=== PATIENT | female | born 1970 | race Caucasian/White ===

== ENCOUNTER 2016-08-29 16:05 | Emergency (ER) | payer BC ==
[2016-08-29 16:40] VITALS: TEMP 98.5
--- NOTE | 2016-08-29 17:15 | ED ---
ENT HPI - General Chief complaint: ENT Stated complaint: Ear Ache Time Seen by Provider: 08/29/16 16:53 Source: patient, RN notes reviewed, old records reviewed Mode of arrival: ambulatory Limitations: no limitations - History of Present Illness Initial comments: This is a 46-year-old female presents emergency department with one week of left ear pain. Patient reports that earlier in the week she's had a lot of sinus congestion and cold-like symptoms. Patient reports it's now manifested into just left ear pain. Denies any difficulty opening closing her jaw. States that she's been not taking any [id number] medications such as decongestants or nasal sprays. Patient reports she's had no fever or chills. No nausea or vomiting or diarrhea. Denies any headache, chest pain, shortness of breath or cough. She reports that she's had no sore throat as well. Patient denies any decreased hearing from the left ear. - Related Data Home Medications Medication Instructions Recorded Confirmed Cyclobenzaprine [Flexeril] 10 mg PO DAILY PRN 08/29/16 08/29/16 Propranolol [Inderal] 20 mg PO BID 08/29/16 08/29/16 tiZANidine [Zanaflex] 4 mg PO BID PRN 08/29/16 08/29/16 Previous Rx's Medication Instructions Recorded Fluticasone Nasal [place] [Flonase 1 spray EA NOSTRIL DAILY #1 bottle 08/29/16 Nasal [place]] Guaifenesin/Pseudoephedrne HCl 1 each PO BID #20 tab.er.12h 08/29/16 [Mucinex D ER 1,200-120 mg Tab] Allergies Allergy/AdvReac Type Severity Reaction Status Date / Time milk Allergy Unknown HEADACHES,EAR Verified 08/29/16 16:39 INFECTIONS amoxicillin [Amoxicillin] AdvReac Severe YEAST Verified 08/29/16 16:39 INFECTIONS adhesive tape AdvReac RED SKIN Verified 08/29/16 16:39 latex AdvReac SKIN RED Verified 08/29/16 16:39 WITH TAPES, BANDAIDS, STATES UNSURE OF LATEX ALLERG BANDAID AdvReac RED SKIN Uncoded 08/29/16 16:39 Review of Systems ROS Statement: Those systems with pertinent positive or pertinent negative responses have been documented in the HPI. ROS Other: All systems not noted in ROS Statement are negative. Past Medical History Past Medical History: CVA/TIA, Memory Impairment, Musculoskeletal Disorder Additional Past Medical History / Comment(s): MIGRAINES. KIDNEY STONES - LAST ONE 06/2014. CHRONIC CONSTIPATION. Diverticulitis, ABD PAIN, OCC DIARRHEA. CERVICAL DDD, HAD FUSION X2. STROKE 09/30/14, AFFECTED MEMORY, SPEECH SOME. History of Any Multi-Drug Resistant Organisms: None Reported Past Surgical History: Ear Surgery, Hysterectomy, Orthopedic Surgery, Tubal Ligation Additional Past Surgical History / Comment(s): BMT. Cervical FUSION X2, LAST . Lithotripsy - last one 06/2014. Pain clinic - Last 08/03/14. Colonoscopy. Past Anesthesia/Blood Transfusion Reactions: Previous Problems w/ Anesthesia, Family History of Problems w/ Anesthesia, Postoperative Nausea & Vomiting (PONV) Additional Past Anesthesia/Blood Transfusion Reaction / Comment(s): SISTER AND FATHER HAVE PONV. PATIENT STATES POSS STROKE AFTER SURG 09/30/14. Past Psychological History: No Psychological Hx Reported Smoking Status: Former smoker Past Alcohol Use History: None Reported Additional Past Alcohol Use History / Comment(s): SMOKED 10 YEARS, LIGHT, QUIT 1994. Past Drug Use History: None Reported - Past Family History Mother Family Medical History: Cancer Additional Family Medical History / Comment(s): low b/p, hx kidney stones, ca cells in colon. Father Family Medical History: CVA/TIA, Hypertension Additional Family Medical History / Comment(s): POSS blood clot in neck, PRIOR TO STROKE, TOLD "IT WAS BLOCKED." General Exam - General Exam Comments Initial Comments: Well-appearing 46-year-old female. No acute distress. Limitations: no limitations General appearance: alert, in no apparent distress Head exam: Present: atraumatic, normocephalic, normal inspection Eye exam: Present: normal appearance, PERRL, EOMI. Absent: scleral icterus, conjunctival injection, periorbital swelling ENT exam: Present: normal exam, normal oropharynx, mucous membranes moist, TM's normal bilaterally (Left TM is normal. No evidence of erythema or exudate. No tenderness to mastoid or preauricular area.) Neck exam: Present: normal inspection. Absent: tenderness, meningismus, lymphadenopathy Respiratory exam: Present: normal lung sounds bilaterally. Absent: respiratory distress, wheezes, rales, rhonchi, stridor Cardiovascular Exam: Present: regular rate, normal rhythm, normal heart sounds. Absent: systolic murmur, diastolic murmur, rubs, gallop, clicks GI/Abdominal exam: Present: soft, normal bowel sounds. Absent: distended, tenderness, guarding, rebound, rigid Extremities exam: Present: normal inspection, full ROM, normal capillary refill. Absent: tenderness, pedal edema, joint swelling, calf tenderness Back exam: Present: normal inspection, full ROM Neurological exam: Present: alert, oriented X3, CN II-XII intact Psychiatric exam: Present: normal affect, normal mood Skin exam: Present: warm, dry, intact, normal color. Absent: rash Course Vital Signs 08/29/16 16:37 Temperature 98.5 F Pulse Rate 97 Respiratory 20 Rate Blood Pressure 140/90 O2 Sat by Pulse 99 Oximetry Medical Decision Making - Medical Decision Making Is a 46-year-old female complaining of upper respiratory congestion leading to left ear pain for the past 2 days. Patient states he has not taken any over-the -counter medications to help. Patient's left TM is normal. No evidence of erythema or effusion. No tenderness to palpation over mastoid or preauricular area. No meningeal signs. Lungs are clear to auscultation. Physical exam is essentially benign. Patient will be discharged with decongestant medication and nasal spray. Patient advised to follow-up with primary care provider if symptoms continue to persist or she does have a fever. Patient agrees treatment plan will comply. Return parameters were discussed. Disposition Clinical Impression: Left ear pain Disposition: HOME SELF-CARE Condition: Good Instructions: Earache (ED) Additional Instructions: Patient advised to use nasal spray and decongestant medication. Also dose Motrin Tylenol for pain. Patient advised to follow-up with her primary care provider within the next 2 or 3 days if symptoms continue to persist. Return the emergency department if any alarming signs or symptoms occur. Prescriptions: Fluticasone Nasal [place] [Flonase Nasal [place]] 1 spray EA NOSTRIL DAILY #1 bottle Guaifenesin/Pseudoephedrne HCl [Mucinex D ER 1,200-120 mg Tab] 1 each PO BID # 20 tab.er.12h Referrals: Hamzah Prince MD [Primary Care Provider] - 1-2 days Time of Disposition: 17:09
[2016-08-29 17:51] VITALS: BP 149/85; PULSE 79; RESP 18
== END 2016-08-29 17:51 | disposition home or self-care (01) ==
LOC: EC 16:05
DX: H92.02 Otalgia, left ear (principal); R09.89 Other specified symptoms and signs involving the circulatory and respiratory systems; Z87.891 Personal history of nicotine dependence; Z79.899 Other long term (current) drug therapy; Z91.011 Allergy to milk products; Z88.0 Allergy status to penicillin; Z91.040 Latex allergy status; Z91.048 Other nonmedicinal substance allergy status
CPT/HCPCS: 99283

== ENCOUNTER → 2016-12-12 | Outpatient (CLI) | payer MEDICARE, BC ==
[2016-12-12 11:03] LABS: Basophils # (A) 0.1 k/uL (0-0.2); Basophils % (A) 1 %; CH 34.2; CHCM 35.2; Eosinophils # (A) 0.1 k/uL (0-0.7); Eosinophils % (A) 1 %; HCT 44.4 % (34.0-46.0); Luc # (Auto) 0.21; Luc % (Auto) 3; Lymphocytes # (A) 2.3 k/uL (1.0-4.8); Lymphocytes % (A) 28 %; MCH 33.1 pg (25.0-35.0); MCHC 33.9 g/dL (31.0-37.0); MCV 97.6 fL (80.0-100.0); Mean Platelet Volume 7.2; Monocytes # (A) 0.4 k/uL (0-1.0); Monocytes % (A) 5 %; Neutrophils # (A) 5.2 k/uL (1.3-7.7); Neutrophils % (A) 62 %; RBC 4.55 m/uL (3.80-5.40); RDW 13.6 % (11.5-15.5); WBC 8.3 k/uL (3.8-10.6); WBC (Perox) 8.03
[2016-12-12 11:34] LABS: ALT 72 U/L (9-52); AST 37 U/L (14-36); Alkaline Phosphatase 93 U/L (38-126); Anion Gap 8 mmol/L; Blood Urea Nitrogen 16 mg/dL (7-17); Calcium 9.3 mg/dL (8.4-10.2); Carbon Dioxide 24 mmol/L (22-30); Chloride 109 mmol/L (98-107); Cholesterol 158 mg/dL (<200); Glucose 95 mg/dL (74-99); HDL Cholesterol 36 mg/dL (40-60); Non-African American GFR(MDRD) >60 (>60 ml/min/1.73 sqM); Potassium 5.1 mmol/L (3.5-5.1); Sodium 141 mmol/L (137-145); Total Bilirubin 0.8 mg/dL (0.2-1.3); Total Protein 7.4 g/dL (6.3-8.2)
[2016-12-12 14:29] LABS: Erythrocyte Sedimentation Rate 18 mm/hr (0-20)
== END | disposition home or self-care (01) ==
LOC: LABWHC1 10:06
PROVIDERS: ATTEND Internal Medicine
DX: I10 Essential (primary) hypertension (principal); R00.2 Palpitations; H57.12 Ocular pain, left eye; E55.9 Vitamin D deficiency, unspecified
CPT/HCPCS: 36415; 80053; 80061; 82306; 84443; 85025; 85652

== ENCOUNTER → 2018-09-08 | Outpatient (CLI) | payer BC, MEDICARE ==
--- NOTE | 2018-09-09 15:23 | MR ---
EXAMINATION TYPE: MR cervical spine wo/w con DATE OF EXAM: 09/08/2018 COMPARISON: Prior cervical MRI 01/03/2016 HISTORY: DDD, headaches, neck pain, hx surgery TECHNIQUE: Multiplanar, multisequence images of the cervical spine were acquired utilizing 7.5 mL intravenous Ga davist gadolinium contrast. Diffusion weighted imaging was performed. C2-C3: There is some uncovertebral joint hypertrophy causing minimal left-sided foraminal encroachmen t, no disc herniation or significant spinal stenosis C3-C4: Uncovertebral joint hypertrophy and facet arthropathy results in minimal foraminal encroachmen t. Posterior disc bulge causes only slight anterior mass effect on the thecal sac. C4-C5: There is some mild right-sided foraminal encroachment, facet arthropathy with uncovertebral samanta int hypertrophy noted. Minimal posterior disc bulge causes only slight anterior mass effect on the th ecal sac. C5-C6: No evidence for degenerative disc disease. No disc bulge/herniation or protrusion. No Canal stenosis. Foramina are patent bilaterally. C6-C7: Posterior extension of hard disc causes only slight anterior mass effect on the thecal sac, st able finding. Neural foramina show a stable appearance, no significant spinal stenosis. C7-T1: No evidence for degenerative disc disease. No disc bulge/herniation or protrusion. No Canal stenosis. Foramina are patent bilaterally. Postop changes are again noted status post anterior cervical fusion and discectomy at C6-7, there may been prior fusion at C5-C6, disc space is not as well-defined as on prior exam.. There is normal al ignment. Cervical spinal cord is of normal signal. Craniovertebral junction relationships are withi n normal limits. No abnormal enhancement following contrast administration. IMPRESSION: Essentially stable postoperative findings, degenerative disc disease. Mild multilevel foraminal encro achment.
== END | disposition home or self-care (01) ==
LOC: RADMRIMAIN 18:58
PROVIDERS: ATTEND Internal Medicine
DX: M48.02 Spinal stenosis, cervical region (principal); M50.30 Other cervical disc degeneration, unspecified cervical region
CPT/HCPCS: 72156; A9585

== ENCOUNTER → 2019-05-07 | Outpatient (CLI) | payer BC, MEDICARE ==
--- NOTE | 2019-05-08 11:21 | MM ---
Reason for exam: screening (asymptomatic). Last mammogram was performed 4 years ago. Physical Findings: A clinical breast exam by your physician is recommended on an annual basis and results should be correlated with mammographic findings. MG 3D Screening Mammo W/Cad Bilateral CC and MLO view(s) were taken. Prior study comparison: May 12, 2015, bilateral MG 3d diag mammo w/cad STEPHANIE. April 16, 2014, bilateral MG diagnostic mammo w CAD STEPHANIE. The breast tissue is heterogeneously dense. This may lower the sensitivity of mammography. Left superior asymmetry. Right upper outer quadrant architectural distortion 5-6cm from nipple on CC 3D and MLO . ASSESSMENT: Incomplete: need additional imaging evaluation, BI-RAD 0 RECOMMENDATION: Special view mammogram of both breasts. If lesion persists on supplemental views, image directed ultrasound is recommended. [facility] will attempt to contact patient to return for supplemental views and ultrasound if indicated.
== END | disposition home or self-care (01) ==
LOC: RADMAMWWP 09:35
PROVIDERS: ATTEND Internal Medicine
DX: Z12.31 Encounter for screening mammogram for malignant neoplasm of breast (principal)
CPT/HCPCS: 77063; 77067

== ENCOUNTER → 2019-05-18 | Outpatient (CLI) | payer BC, MEDICARE ==
--- NOTE | 2019-05-19 09:02 | MM ---
Reason for exam: additional evaluation requested from abnormal screening. Last mammogram was performed less than 1 month ago. History: Benign excisional biopsy of the right breast, 2018. Physical Findings: Nurse Summary: 0.5cm nodule in the right breast at 3 o'clock and 10 o'clock and a 0.5-1cm nodule in the left breast upper outer quadran (nurse ts). MG 3D Work Up W/Cad STEPHANIE Bilateral spot compression CC, spot compression MLO, and ML view(s) were taken. Prior study comparison: May 07, 2019, bilateral MG 3d screening mammo w/cad. May 12, 2015, bilateral MG 3d diag mammo w/cad STEPHANIE. The breast tissue is heterogeneously dense. This may lower the sensitivity of mammography. Left upper asymmetries improve however palpable noted in the left upper outer quadrant by nursing. Right distortion corresponds to the prior excisional site, scar on overlying skin. These results were verbally communicated with the patient and result sheet given to the patient on 05/18/19. ASSESSMENT: Incomplete: need additional imaging evaluation, BI-RAD 0 RECOMMENDATION: Ultrasound of the left breast. (upper outer quadant palpable)
--- NOTE | 2019-05-19 09:03 | USB ---
Reason for exam: additional evaluation requested from abnormal screening. History: Benign excisional biopsy of the right breast, 2018. US Breast Workup Limited LT Technologist: Elvia Marx Left limited breast ultrasound including focal area of concern, retroareolar and axilla demonstrates a 4.1 x 2.5 x 1.3cm area of dense tissue at 1-2 o'clock, corresponds to mammographic dense tissue. These results were verbally communicated with the patient and result sheet given to the patient on 05/18/19. ASSESSMENT: Benign, BI-RAD 2 RECOMMENDATION: Return to routine screening mammogram schedule for both breasts.
== END | disposition home or self-care (01) ==
LOC: RADMAMWWP 13:30
PROVIDERS: ATTEND Internal Medicine
DX: R92.8 Other abnormal and inconclusive findings on diagnostic imaging of breast (principal)
CPT/HCPCS: 77062; 77066

== ENCOUNTER → 2020-05-16 | Outpatient (CLI) | payer BC, MEDICARE ==
--- NOTE | 2020-05-16 07:34 | US ---
EXAMINATION TYPE: US liver DATE OF EXAM: 05/16/2020 COMPARISON: NONE CLINICAL HISTORY: 49-year-old female R74.8 Elevated liver enzymes. Abdominal pain on and off, elevate d labs TECHNIQUE: Multiple sonographic images of the right upper quadrant are obtained. FINDINGS: EXAM MEASUREMENTS: Liver Length: 12.8 cm Gallbladder Wall: 0.2 cm CBD: 0.4 cm Right Kidney: 11.7 x 4.0 x 4.9 cm Pancreas: wnl Liver: Limited intercostal imaging due to bowel gas. Echogenic parenchyma noted. No focal lesion s een. Gallbladder: Comet tail artifact on anterior wall, probable adenomyomatosis. Borderline distended at 3.8 cm wide but without any wall thickening or shadowing calculi. Evidence for sonographic Marte's sign: no CBD: wnl Right Kidney: 0.8cm upper pole stone . No hydronephrosis. IMPRESSION: 1. Limited intercostal imaging of the liver. Echogenic appearance suggests at least moderate hepatic steatosis. Correlate with LFTs, lipid profile, and patient risk factors. 2. Borderline hydropic gallbladder likely due to fasting state. No ancillary findings of acute cholec ystitis. Some comet tail artifact suggests underlying adenomyomatosis. 3. No biliary ductal dilatation. 4. 8 mm nonobstructive right renal calculus. 2.
[2020-05-16 08:01] LABS: Basophils # (A) 0.1 k/uL (0-0.2); Basophils % (A) 1 %; Eosinophils # (A) 0.1 k/uL (0-0.7); Eosinophils % (A) 1 %; HCT 44.6 % (34.0-46.0); HGB 14.7 gm/dL (11.4-16.0); Lymphocytes # (A) 2.5 k/uL (1.0-4.8); Lymphocytes % (A) 28 %; MCH 32.1 pg (25.0-35.0); MCHC 32.9 g/dL (31.0-37.0); MCV 97.4 fL (80.0-100.0); Mean Platelet Volume 6.8; Monocytes # (A) 0.6 k/uL (0-1.0); Monocytes % (A) 6 %; Neutrophils # (A) 5.3 k/uL (1.3-7.7); Neutrophils % (A) 61 %; Platelet Count 286 k/uL (150-450); RBC 4.58 m/uL (3.80-5.40); RDW 13.2 % (11.5-15.5); Reticulocyte % 2.7 % (0.5-2.0); WBC 8.7 k/uL (3.8-10.6)
[2020-05-16 14:52] LABS: Hepatitis A Antibody IgM Non-Reactive (Non-Reactive); Hepatitis B Core IgM Non-Reactive (Non-Reactive); Hepatitis B Surface Antigen Non-Reactive (Non-Reactive); Hepatitis C IgG Antibody Non-Reactive (Non-Reactive)
== END | disposition home or self-care (01) ==
LOC: RADUSWWP 06:57
PROVIDERS: ATTEND Internal Medicine
DX: R74.8 Abnormal levels of other serum enzymes (principal)
CPT/HCPCS: 76705; 80074; 82977; 83516; 85025; 85045

== ENCOUNTER → 2020-06-21 | Outpatient (CLI) | payer BC, MEDICARE ==
--- NOTE | 2020-06-23 08:38 | MM ---
Reason for exam: screening (asymptomatic). Last mammogram was performed 1 year and 1 month ago. History: Benign excisional biopsy of the right breast, 2018. Physical Findings: A clinical breast exam by your physician is recommended on an annual basis and results should be correlated with mammographic findings. MG 3D Screening Mammo W/Cad Bilateral CC and MLO view(s) were taken. Prior study comparison: May 07, 2019, bilateral MG 3d screening mammo w/cad. May 12, 2015, bilateral MG 3d diag mammo w/cad STEPHANIE. The breast tissue is extremely dense which could obscure a lesion on mammography. No significant changes when compared with prior studies. ASSESSMENT: Benign, BI-RAD 2 RECOMMENDATION: Routine screening mammogram of both breasts in 1 year.
== END ==
LOC: RADMAMWWP 07:26
PROVIDERS: ATTEND Internal Medicine
DX: Z12.31 Encounter for screening mammogram for malignant neoplasm of breast (principal)
CPT/HCPCS: 77063; 77067

== ENCOUNTER → 2020-09-15 | Outpatient (CLI) | payer BC, MEDICARE ==
[2020-09-16 00:22] LABS: African American GFR (CKD) 98.9 (60.0-200.0); Anion Gap 8.9 mmol/L (4.00-12.00); BUN/Creat Ratio 18.75 Ratio (12.00-20.00); Calcium 9.1 mg/dL (8.7-10.3); Carbon Dioxide 23.1 mmol/L (21.6-31.8); Chol/HDL Ratio 4.57; LDL Cholesterol,Calculated 139.2 mg/dL (0.0-131.0); Non-African American GFR(CKD) 85.4 (60.0-200.0); Potassium 4.3 mmol/L (3.5-5.5); VLDL Calculation 17.8 mg/dL (5.00-40.00)
== END | disposition home or self-care (01) ==
LOC: LABWHC1 12:45
PROVIDERS: ATTEND Internal Medicine Clinical Cardiac Electrophysiology
DX: I11.0 Hypertensive heart disease with heart failure (principal); I49.3 Ventricular premature depolarization; I50.9 Heart failure, unspecified
CPT/HCPCS: 36415; 80048; 80061; 84443

== ENCOUNTER → 2020-11-12 | Outpatient (CLI) | payer BC, MEDICARE ==
--- NOTE | 2020-11-13 21:13 | MR ---
EXAMINATION TYPE: MR cervical spine wo con DATE OF EXAM: 11/12/2020 COMPARISON: 09/08/2018 HISTORY: Cervical DDD CONTRAST: Performed utilizing 7.5 mL intravenous Gadavist gadolinium contrast. TECHNIQUE: Multiplanar multiecho imaging on a 3.0 Traci magnet is performed through the cervical spin e. FINDINGS: The craniovertebral junction is normal. Vertebral body alignment is normal. Appears obes e fusion of C5-C7. Metallic anterior cervical fusion is present C6-C7. C7-T1: Paracentral bulge or protrusion is present with mild anterior thecal sac compression. No cord contact is evident. No spinal canal stenosis or neural foraminal stenosis is present.. C6-7: Left paracentral thecal sac compression is present without cord contact. No AP spinal canal page nosis is present. Neural foramen are patent.. C5-6: No focal disc herniation or significant disc bulge is evident. No spinal canal stenosis or ismael ral foraminal stenosis is present. C4-5: Broad-based central protrusion is present with moderate anterior thecal sac compression. This c omes in close approximation of the spinal cord. No AP spinal canal stenosis present. Neural foramen a re patent.. C3-4: No focal disc herniation or significant disc bulge is evident. No spinal canal stenosis or ismael ral foraminal stenosis is present. C2-3: No focal disc herniation or significant disc bulge is evident. No spinal canal stenosis or ismael ral foraminal stenosis is present. IMPRESSIONS: 1. 1. Broad-based central protrusion C4-5 with moderate anterior thecal sac compression comes in close a pproximation with the spinal cord without stenosis. 2. Left paracentral endplate changes versus disc bulging with mild anterior thecal sac compression at C6-7 and to a lesser degree C7-T1.
== END | disposition home or self-care (01) ==
LOC: RADMRIMAIN 09:11
PROVIDERS: ATTEND Family Medicine
DX: M50.221 Other cervical disc displacement at C4-C5 level (principal)
CPT/HCPCS: 72141

== ENCOUNTER 2021-01-25 18:27 | Emergency (ER) | payer BC, MEDICARE ==
[2021-01-25 19:17] VITALS: BP 172/96; TEMP 99.3
[2021-01-25] MEDS ORDERED: KETOROLAC 15 MG/ML 1 ML VIAL IVP STA (20:24)
[2021-01-25] MEDS ORDERED: SODIUM CHLORIDE 0.9% 1,000 ML IV STA (20:24)
[2021-01-25 20:42] LABS: Basophils # (A) 0.1 k/uL (0-0.2); Basophils % (A) 1 %; Eosinophils # (A) 0.2 k/uL (0-0.7); Eosinophils % (A) 2 %; HCT 44.2 % (34.0-46.0); HGB 14.6 gm/dL (11.4-16.0); Lymphocytes # (A) 3.6 k/uL (1.0-4.8); Lymphocytes % (A) 33 %; MCH 32.8 pg (25.0-35.0); MCHC 33.1 g/dL (31.0-37.0); Mean Platelet Volume 7.4; Monocytes # (A) 0.6 k/uL (0-1.0); Monocytes % (A) 5 %; Neutrophils # (A) 6.3 k/uL (1.3-7.7); Neutrophils % (A) 57 %; Platelet Count 292 k/uL (150-450); RBC 4.47 m/uL (3.80-5.40); RDW 12.2 % (11.5-15.5)
[2021-01-25 20:52] LABS: ALT 52 U/L (4-34); AST 46 U/L (14-36); African American GFR (CKD) >90 (>60 ml/min/1.73 sqM); Albumin 4.5 g/dL (3.5-5.0); Alkaline Phosphatase 114 U/L (38-126); Anion Gap 10 mmol/L; Blood Urea Nitrogen 19 mg/dL (7-17); Calcium 9.6 mg/dL (8.4-10.2); Carbon Dioxide 26 mmol/L (22-30); Chloride 105 mmol/L (98-107); Glucose 90 mg/dL (74-99); Lipase 71 U/L (23-300); Non-African American GFR(CKD) 88 (>60 ml/min/1.73 sqM); Potassium 3.8 mmol/L (3.5-5.1); Sodium 141 mmol/L (137-145); Total Bilirubin 0.5 mg/dL (0.2-1.3); Total Protein 7.8 g/dL (6.3-8.2)
[2021-01-25 20:56] LABS: Appearance,Urine Clear (Clear); Bilirubin,Urine Negative (Negative); Blood,Urine Negative (Negative); Color,Urine Yellow; Glucose,Urine (UA) Negative (Negative); Ketones,Urine Negative (Negative); Leukocyte Esterase,Urine Negative (Negative); Nitrite,Urine Negative (Negative); Protein,Urine Negative (Negative); Specific Gravity,Urine 1.015 (1.001-1.035); Urobilinogen,Urine <2.0 mg/dL (<2.0)
[2021-01-25] MEDS ORDERED: ACET/COD 300 MG/30 MG STARTER PACK 6 TAB BTL PO STA (21:50)
[2021-01-25] MEDS ORDERED: TAMSULOSIN 0.4 MG CAP.ER.24H PO STA (21:50)
--- NOTE | 2021-01-25 21:54 | ED ---
General Adult HPI - General Chief complaint: Urogenital Stated complaint: Kidney stones, swollen kidney Time Seen by Provider: 01/25/21 20:13 Source: patient Mode of arrival: ambulatory Limitations: no limitations - History of Present Illness Initial comments: 50-year-old female patient presents to the emergency department today sent by her primary care physician after having outpatient computed tomography scan positive for kidney stones with left hydronephrosis. Patient states she has been having pain to the left side for the last 2 weeks. States she does have history of kidney stones and has had surgery in the past for them. States that she has been having pain to the left side constant every day for the last 2 weeks. Denies any hematuria, dysuria, urinary frequency, urinary urgency. Denies any nausea or vomiting. Denies fever or chills. Patient denies any recent rash, cough, shortness of breath, chest pain, diarrhea, constipation, ba ck pain, numbness, tingling, dizziness, weakness, headache, visual changes, or any other complaints. - Related Data Home Medications Medication Instructions Recorded Confirmed Cyclobenzaprine [Flexeril] 10 mg PO DAILY PRN 08/29/16 08/29/16 Propranolol [Inderal] 20 mg PO BID 08/29/16 08/29/16 tiZANidine [Zanaflex] 4 mg PO BID PRN 08/29/16 08/29/16 Previous Rx's Medication Instructions Recorded Fluticasone Nasal [place] [Flonase 1 spray EA NOSTRIL DAILY #1 bottle 08/29/16 Nasal [place]] Guaifenesin/Pseudoephedrne HCl 1 each PO BID #20 tab.er.12h 08/29/16 [Mucinex D ER 1,200-120 mg Tab] Acetaminophen-Codeine 300-30mg 1 tab PO Q6H PRN #12 tablet 01/25/21 [Tylenol #3] Tamsulosin HCl [Flomax] 0.4 mg PO DAILY #7 cap 01/25/21 Allergies Allergy/AdvReac Type Severity Reaction Status Date / Time milk Allergy Unknown HEADACHES,EAR Verified 08/29/16 16:39 INFECTIONS amoxicillin [Amoxicillin] AdvReac Severe YEAST Verified 08/29/16 16:39 INFECTIONS adhesive tape AdvReac RED SKIN Verified 08/29/16 16:39 latex AdvReac SKIN RED Verified 08/29/16 16:39 WITH TAPES, BANDAIDS, STATES UNSURE OF LATEX ALLERG BANDAID AdvReac RED SKIN Uncoded 08/29/16 16:39 Review of Systems ROS Statement: Those systems with pertinent positive or pertinent negative responses have been documented in the HPI. ROS Other: All systems not noted in ROS Statement are negative. Past Medical History Past Medical History: CVA/TIA, Memory Impairment, Musculoskeletal Disorder Additional Past Medical History / Comment(s): MIGRAINES. KIDNEY STONES - LAST ONE 06/2014. CHRONIC CONSTIPATION. Diverticulitis, ABD PAIN, OCC DIARRHEA. CERVICAL DDD, HAD FUSION X2. STROKE 09/30/14, AFFECTED MEMORY, SPEECH SOME. History of Any Multi-Drug Resistant Organisms: None Reported Past Surgical History: Ear Surgery, Hysterectomy, Orthopedic Surgery, Tubal Ligation Additional Past Surgical History / Comment(s): BMT. Cervical FUSION X2, LAST . Lithotripsy - last one 06/2014. Pain clinic - Last 08/03/14. Colonoscopy. Past Anesthesia/Blood Transfusion Reactions: Previous Problems w/ Anesthesia, Family History of Problems w/ Anesthesia, Postoperative Nausea & Vomiting (PONV) Additional Past Anesthesia/Blood Transfusion Reaction / Comment(s): SISTER AND FATHER HAVE PONV. PATIENT STATES POSS STROKE AFTER SURG 09/30/14. Past Psychological History: No Psychological Hx Reported Past Alcohol Use History: None Reported Past Drug Use History: None Reported - Past Family History Mother Family Medical History: Cancer Additional Family Medical History / Comment(s): low b/p, hx kidney stones, ca cells in colon. Father Family Medical History: CVA/TIA, Hypertension Additional Family Medical History / Comment(s): POSS blood clot in neck, PRIOR TO STROKE, TOLD "IT WAS BLOCKED." General Exam Limitations: no limitations General appearance: alert, in no apparent distress, other (This is a well- developed, well-nourished adult female patient in no acute distress. ) ENT exam: Present: normal exam, normal oropharynx, mucous membranes moist Respiratory exam: Present: normal lung sounds bilaterally. Absent: respiratory distress, wheezes, rales, rhonchi, stridor Cardiovascular Exam: Present: regular rate, normal rhythm, normal heart sounds. Absent: systolic murmur, diastolic murmur, rubs, gallop, clicks GI/Abdominal exam: Present: soft, tenderness (Upper abdominal tenderness), normal bowel sounds. Absent: distended, guarding, rebound, rigid Back exam: Present: normal inspection, CVA tenderness (L). Absent: CVA tenderness (R) Neurological exam: Present: alert, oriented X3, CN II-XII intact Psychiatric exam: Present: normal affect, normal mood Skin exam: Present: warm, dry, intact, normal color. Absent: rash Course Vital Signs 01/25/21 01/25/21 19:15 22:04 Temperature 99.3 F Pulse Rate 73 63 Respiratory 19 16 Rate Blood Pressure 172/96 O2 Sat by Pulse 99 98 Oximetry Medical Decision Making - Medical Decision Making 50-year-old female patient presents to the emergency department today for evaluation of left side pain. Had outpatient computed tomography scan today which did show evidence for obstructing renal calculus is to the left ureter with left hydronephrosis. Labs reviewed and did reveal white blood cell count 11.0. BUN is 19. She has mild elevated liver function tests. Urinalysis is negative for signs of infection. Patient will be started on Flomax. She'll be given medication for pain. She'll be discharged to follow-up with urologist for further evaluation. She has seen Dr. Finley in the past. Return parameters discussed in detail. She verbalizes understanding and agrees with this plan. Case is discussed with my attending Dr. Cespedes. - Lab Data Result diagrams: 01/25/21 20:38 01/25/21 20:38 Lab Results 01/25/21 01/25/21 01/25/21 Range/Units 20:38 20:38 20:38 WBC 11.0 H (3.8-10.6) k/uL RBC 4.47 (3.80-5.40) m/uL Hgb 14.6 (11.4-16.0) gm/dL Hct 44.2 (34.0-46.0) % MCV 99.0 (80.0-100.0) fL MCH 32.8 (25.0-35.0) pg MCHC 33.1 (31.0-37.0) g/dL RDW 12.2 (11.5-15.5) % Plt Count 292 (150-450) k/uL MPV 7.4 Neutrophils % 57 % Lymphocytes % 33 % Monocytes % 5 % Eosinophils % 2 % Basophils % 1 % Neutrophils # 6.3 (1.3-7.7) k/uL Lymphocytes # 3.6 (1.0-4.8) k/uL Monocytes # 0.6 (0-1.0) k/uL Eosinophils # 0.2 (0-0.7) k/uL Basophils # 0.1 (0-0.2) k/uL Sodium 141 (137-145) mmol/L Potassium 3.8 (3.5-5.1) mmol/L Chloride 105 (98-107) mmol/L Carbon Dioxide 26 (22-30) mmol/L Anion Gap 10 mmol/L BUN 19 H (7-17) mg/dL Creatinine 0.79 (0.52-1.04) mg/dL Est GFR (CKD-EPI)AfAm >90 (>60 ml/min/1.73 sqM) Est GFR (CKD-EPI)NonAf 88 (>60 ml/min/1.73 sqM) Glucose 90 (74-99) mg/dL Plasma Lactic Acid Ozzie 0.8 (0.7-2.0) mmol/L Calcium 9.6 (8.4-10.2) mg/dL Total Bilirubin 0.5 (0.2-1.3) mg/dL AST 46 H (14-36) U/L ALT 52 H (4-34) U/L Alkaline Phosphatase 114 (38-126) U/L Total Protein 7.8 (6.3-8.2) g/dL Albumin 4.5 (3.5-5.0) g/dL Lipase 71 (23-300) U/L Urine Color Urine Appearance (Clear) Urine pH (5.0-8.0) Ur Specific [place] (1.001-1.035) Urine Protein (Negative) Urine Glucose (UA) (Negative) Urine Ketones (Negative) Urine Blood (Negative) Urine Nitrite (Negative) Urine Bilirubin (Negative) Urine Urobilinogen (<2.0) mg/dL Ur Leukocyte Esterase (Negative) 01/25/21 Range/Units 20:47 WBC (3.8-10.6) k/uL RBC (3.80-5.40) m/uL Hgb (11.4-16.0) gm/dL Hct (34.0-46.0) % MCV (80.0-100.0) fL MCH (25.0-35.0) pg MCHC (31.0-37.0) g/dL RDW (11.5-15.5) % Plt Count (150-450) k/uL MPV Neutrophils % % Lymphocytes % % Monocytes % % Eosinophils % % Basophils % % Neutrophils # (1.3-7.7) k/uL Lymphocytes # (1.0-4.8) k/uL Monocytes # (0-1.0) k/uL Eosinophils # (0-0.7) k/uL Basophils # (0-0.2) k/uL Sodium (137-145) mmol/L Potassium (3.5-5.1) mmol/L Chloride (98-107) mmol/L Carbon Dioxide (22-30) mmol/L Anion Gap mmol/L BUN (7-17) mg/dL Creatinine (0.52-1.04) mg/dL Est GFR (CKD-EPI)AfAm (>60 ml/min/1.73 sqM) Est GFR (CKD-EPI)NonAf (>60 ml/min/1.73 sqM) Glucose (74-99) mg/dL Plasma Lactic Acid Ozzie (0.7-2.0) mmol/L Calcium (8.4-10.2) mg/dL Total Bilirubin (0.2-1.3) mg/dL AST (14-36) U/L ALT (4-34) U/L Alkaline Phosphatase (38-126) U/L Total Protein (6.3-8.2) g/dL Albumin (3.5-5.0) g/dL Lipase (23-300) U/L Urine Color Yellow Urine Appearance Clear (Clear) Urine pH 6.0 (5.0-8.0) Ur Specific [place] 1.015 (1.001-1.035) Urine Protein Negative (Negative) Urine Glucose (UA) Negative (Negative) Urine Ketones Negative (Negative) Urine Blood Negative (Negative) Urine Nitrite Negative (Negative) Urine Bilirubin Negative (Negative) Urine Urobilinogen <2.0 (<2.0) mg/dL Ur Leukocyte Esterase Negative (Negative) - Radiology Data Radiology results: report reviewed CT abdomen and pelvis without contrast was obtained. Report was reviewed in its entirety. Impression by Dr. delvalle shows moderate to severe left h ydronephrosis secondary to 2 distal 4 mm ureteral calculus. Chronic medical renal disease involving the right kidney with nonobstructing calculi. Nonvisualization of the appendix. Bibasilar consolidation atelectasis versus early infiltrate. Disposition Clinical Impression: Kidney stone on left side Disposition: HOME SELF-CARE Condition: Good Instructions (If sedation given, give patient instructions): Kidney Stones (ED) Additional Instructions: Take medications as directed. Follow-up with the urologist for further evaluation as soon as possible. Return for any new, worsening, or concerning symptoms. Prescriptions: Tamsulosin HCl [Flomax] 0.4 mg PO DAILY #7 cap Acetaminophen-Codeine 300-30mg [Tylenol #3] 1 tab PO Q6H PRN #12 tablet PRN Reason: Pain Is patient prescribed a controlled substance at d/c from ED?: No Referrals: Peggy Sandra MD [Primary Care Provider] - 1-2 days Dale Mason MD [STAFF PHYSICIAN] - 1-2 days Time of Disposition: 21:54
[2021-01-25 22:05] VITALS: PULSE 63; RESP 16
== END 2021-01-25 22:05 | disposition home or self-care (01) ==
LOC: EC 18:27
DX: N20.0 Calculus of kidney (principal); Z88.0 Allergy status to penicillin; Z91.040 Latex allergy status; Z86.73 Personal history of transient ischemic attack (TIA), and cerebral infarction without residual deficits; Z90.710 Acquired absence of both cervix and uterus; Z98.51 Tubal ligation status
CPT/HCPCS: 99284; 96374; 96361; 36415; 80053; 83605; 83690; 85025; 81003; J1885

== ENCOUNTER → 2021-01-25 | Outpatient (CLI) | payer BC, MEDICARE ==
--- NOTE | 2021-01-25 15:57 | CT ---
EXAMINATION TYPE: CT abdomen pelvis wo con DATE OF EXAM: 01/25/2021 COMPARISON: 07/03/2014 HISTORY: Acute LT side abdominal pain under ribs, pain upon palpation. Hx renal stones. CT DLP: 950 mGycm Automated exposure control for dose reduction was used. TECHNIQUE: Helical acquisition of images was performed from the lung bases through the pelvis. FINDINGS: LUNG BASES: Linear changes at the left lung base suggestive of atelectasis or scar. LIVER/GB: Low-attenuation the liver can be associated with atelectatic steatosis. PANCREAS: Limited by noncontrast technique with no definite abnormality.. SPLEEN: No significant abnormality is seen. ADRENALS: No significant abnormality is seen. KIDNEYS: Lobulation of the right kidney with loss of cortex. There are four punctate calcifications with minimal pelvocaliectasis. 2 of the calcifications appear to be cortical. The left kidney demonstrates moderate to severe hydronephrosis. Hydroureter is seen to the level of t he distal left ureter with 2 punctate calcifications measuring 4 mm. This is several centimeters abov e the UVJ. Additional calcifications in the pelvis appear to be vascular ADENOPATHY: None visualized. OSSEOUS STRUCTURES: Hypertrophic and degenerative changes of the spine. BOWEL: Bowel gas pattern nonspecific. Appendix not seen with certainty. OTHER: No free fluid. Bladder decompressed. Aorta of normal caliber with atherosclerotic changes. IMPRESSION: 1. Moderate to severe left hydronephrosis secondary to two distal 4 mm ureteral calculus. 2. Chronic medical renal disease involving the right kidney with nonobstructing calculi. 3. Nonvisualization appendix. 4. Bibasilar consolidation atelectasis versus early infiltrate.
== END | disposition home or self-care (01) ==
LOC: RADCTMAIN 15:20
PROVIDERS: ATTEND Family Medicine
DX: N13.2 Hydronephrosis with renal and ureteral calculous obstruction (principal)
CPT/HCPCS: 74176

== ENCOUNTER 2021-02-10 13:46 | Day surgery (SDC) | payer BC, MEDICARE ==
[2021-02-08 11:41] VITALS: BMI 28.1
[~2021-02-10 13:46] MED LIST: CIPROFLOXACIN/DEXTROSE PMX 400 MG in DEXTROSE/WATER 1 200ML.BAG IVPB PRN; DEXAMETHASONE SOD PHOSPHATE 4 MG/ML 1 ML VIAL IV ONE; HYDROmorphone 0.5 MG/0.5 ML SYRINGE IVP PRN; LACTATED RINGERS 1,000 ML IV SCH; LIDOCAINE 1% (10MG/ML) FOR IV START INTRADERMA PRN; ONDANSETRON 4 MG/2 ML VIAL IVP ONE; SCOPOLAMINE 1.5MG/72HR PATCH TRANSDERM ONE
--- NOTE | 2021-02-10 14:20 | XR ---
EXAMINATION TYPE: XR KUB DATE OF EXAM: 02/10/2021 COMPARISON: NONE HISTORY: Preop TECHNIQUE: One view abdominal series FINDINGS: The osseous structures are intact. The bowel gas pattern is nonspecific. Lung bases are clear. The multiple calcifications are seen within the bladder. No suspicious calcifications overlying the renal outlines. Curvature of the spine. Arthropathy of the hips. IMPRESSION: 1. Nonspecific abdomen. Multiple calculi within the pelvis likely are vascular and appear to lie out side of the bladder on previous CT scan.
--- NOTE | 2021-02-10 14:58 | P.HPIHPCON ---
History of Present Illness H&P Date: 02/10/21 Chief Complaint: Left-sided ureteral stone This is a 50-year-old female with history of two 4 mm distal ureteral stones. She is symptomatic from her stone. Discussed with her the option of left-sided ureteroscopy. Discussed with her the risk of procedure which includes but not limited bleeding, infection, injury to the ureter. Discussed also risk of anesthesia. She understood all the risk and agreed to proceed Consent for Procedure: I have explained the operation/procedure to the patient, including the risks, benefits, side effects, alternative therapies (including not receiving the proposed treatment or service), the likelihood of the patient achieving his/her goals, and potential recuperation problems for the procedure/sedation/analgesia, as well as any blood products, if indicated. I also explained to the patient the risks, benefits and side effects of the alternatives, as well as the risks related to not receiving the proposed procedure, care, treatment, or services. Past Medical History Past Medical History: CVA/TIA, GERD/Reflux, Hypertension, Memory Impairment, Musculoskeletal Disorder, Osteoarthritis (OA) Additional Past Medical History / Comment(s): MIGRAINES. KIDNEY STONES, CHRONIC CONSTIPATION. Diverticulitis, CERVICAL DDD, HAD FUSION X2. STROKE 09/30/14-had some memory issues & speech issues @that time-mostly resolved, palpitations, taking A/B for recent UTI History of Any Multi-Drug Resistant Organisms: None Reported Past Surgical History: Ear Surgery, Hysterectomy, Orthopedic Surgery, Tubal Ligation Additional Past Surgical History / Comment(s): BMT. Cervical FUSION X2-LAST 09/30/14. Lithotripsy, Pain clinic procedures, Colonoscopy, right shoulder arthroscopy Past Anesthesia/Blood Transfusion Reactions: Previous Problems w/ Anesthesia, Family History of Problems w/ Anesthesia, Postoperative Nausea & Vomiting (PONV) Additional Past Anesthesia/Blood Transfusion Reaction / Comment(s): SISTER AND FATHER HAVE PONV. pt. states had stroke after 2nd cervical fusion 09/30/14. Past Psychological History: No Psychological Hx Reported Smoking Status: Former smoker Past Alcohol Use History: None Reported Additional Past Alcohol Use History / Comment(s): SMOKED 10 YEARS, LIGHT, QUIT 1994. Past Drug Use History: None Reported - Past Family History Mother Family Medical History: Cancer Additional Family Medical History / Comment(s): low b/p, hx kidney stones, ca cells in colon. Father Family Medical History: CVA/TIA, Hypertension Additional Family Medical History / Comment(s): POSS blood clot in neck, PRIOR TO STROKE, TOLD "IT WAS BLOCKED." Medications and Allergies Home Medications Medication Instructions Recorded Confirmed Type tiZANidine [Zanaflex] 4 mg PO BID PRN 08/29/16 02/08/21 History Acetaminophen [Tylenol] 325 mg PO Q4H PRN 02/08/21 02/08/21 History Cholecalciferol [Vitamin D3 (25 25 mcg PO DAILY 02/08/21 02/08/21 History Mcg = 1000 Iu)] Losartan Potassium [Cozaar] 50 mg PO DAILY 02/08/21 02/08/21 History Sulfamethox-Tmp 800-160Mg [Bactrim 1 tab PO Q12HR 02/08/21 02/08/21 History DS 800-160 mg] Allergies Allergy/AdvReac Type Severity Reaction Status Date / Time milk Allergy Unknown HEADACHES,EAR Verified 02/08/21 11:13 INFECTIONS amoxicillin [Amoxicillin] AdvReac Severe YEAST Verified 02/08/21 11:13 INFECTIONS adhesive tape AdvReac RED SKIN Verified 02/08/21 11:13 latex AdvReac SKIN RED Verified 02/08/21 11:13 WITH TAPES, BANDAIDS, STATES UNSURE OF LATEX ALLERG BANDAID AdvReac RED SKIN Uncoded 02/08/21 11:13 Surgical - Exam Vital Signs Temp Pulse Resp BP Pulse Ox 98 F 83 20 127/78 98 02/10/21 14:22 02/10/21 14:22 02/10/21 14:22 02/10/21 14:22 02/10/21 14:22 - General no distress, no pain - Eyes PERRL, normal ocular movement - ENT normal nares, normal mucosa - Respiratory normal expansion, normal respiratory effort Assessment and Plan Assessment: OR for left-sided ureteroscopy, with holmium laser lithotripsy, stone basketing and stent insertion
[2021-02-10] MEDS ORDERED: LIDOCAINE 1% INJ 10MG/ML (20 ML MDV) ONE (16:04)
[2021-02-10] MEDS ORDERED: fentaNYL (PF) 50 MCG/ML 2 ML AMP ONE (16:04)
[2021-02-10] MEDS ORDERED: PROPOFOL 10 MG/ML 20 ML VIAL IV ONE (16:04)
[2021-02-10] MEDS ORDERED: KETOROLAC 15 MG/ML 1 ML VIAL ONE (16:04)
[2021-02-10] MEDS ORDERED: MIDAZOLAM 2 MG/2 ML VIAL ONE (16:04)
--- NOTE | 2021-02-10 16:56 | P.OP ---
Date of Procedure: 02/10/21 Preoperative Diagnosis: Left ureteral stone Postoperative Diagnosis: Same Procedure(s) Performed: Cystoscopy, left ureteroscopy, holmium laser lithotripsy, stone basketing, stent insertion and retrograde pyelogram Implants: 6-Sami by 26 cm stent in the left ureter left on a string Anesthesia: ESMER Surgeon: Rodney Garcia Estimated Blood Loss (ml): 1 Pathology: other (left ureteral stone) Condition: stable Disposition: PACU Indications for Procedure: This is a 50-year-old female with history of two 4 mm distal ureteral stones. She is symptomatic from her stone. Discussed with her the option of left-sided ureteroscopy. Discussed with her the risk of procedure which includes but not limited bleeding, infection, injury to the ureter. Discussed also risk of anesthesia. She understood all the risk and agreed to proceed Operative Findings: Left distal ureteral stone Description of Procedure: Patient was brought to the operating room, general anesthesia was induced. She was prepped and draped in sterile fashion and placed in dorsal lithotomy position. Cystoscopy fitted with a 21-Sami sheath was inserted per urethra, cystoscopy was performed which showed no abnormality within the bladder. Attention was then carried to the left ureteral orifice. A semirigid ureteroscope was advanced up the left ureteral orifice, a distal ureteral stone was encountered. Using the holmium laser the stone was fragmented into small fragments, sizable fragments were stone basket. At this time the ureteroscope was advanced up to the left proximal ureter. There was no additional stones or for fragments. Retrograde Polygram was performed through the ureteroscope which showed no filling defect. Pullback ureteroscopy was performed showed no injury to the ureter or any ureteral fragments. As the ureteroscope was withdrawn a sensor wire was advanced through,, of note there was mild edema at the site of stone impaction. Next a ureteral stent was passed over the wire, the proximal curl was visualized on fluoroscopy and the distal curl was visualized using the cystoscope. The stent was left on a string and taped to the patient left thigh. The bladder was emptied at the end of the case, the stones were sent for analysis. Patient tolerated procedure well was taken to recovery in stable condition
[2021-02-10 17:03] VITALS: TEMP 97
[2021-02-10 17:10] VITALS: RESP 16
--- NOTE | 2021-02-10 17:19 | FL ---
Fluoroscopy INDICATION: Pain, ureteral calculi left-sided cysto FINDINGS: Fluoroscopy time: 14 seconds. Images obtained: 1. IMPRESSIONS: 1. Documentation of fluoroscopy.
[2021-02-10 19:35] VITALS: BP 124/70; PULSE 95
== END 2021-02-10 18:50 | disposition home or self-care (01) ==
LOC: OR 13:46
PROVIDERS: ATTEND Urology
DX: N20.1 Calculus of ureter (principal); Z86.73 Personal history of transient ischemic attack (TIA), and cerebral infarction without residual deficits; I10 Essential (primary) hypertension; M19.90 Unspecified osteoarthritis, unspecified site; Z87.442 Personal history of urinary calculi; Z87.891 Personal history of nicotine dependence
CPT/HCPCS: 52356; 82365; 74420; 74018; C2625; C1758; C1769; J2250; J1100; J2405; J2001; J3010; J0744; J1885; J2704; J1170

== ENCOUNTER → 2021-03-16 | Outpatient (CLI) | payer BC, MEDICARE ==
--- NOTE | 2021-03-16 13:28 | US ---
EXAMINATION TYPE: US kidneys/renal and bladder DATE OF EXAM: 03/16/2021 COMPARISON: NONE CLINICAL HISTORY: N20.1 CALCULUS OF URETER LT. History of renal stones, Left ureter stone removed EXAM MEASUREMENTS: Right Kidney: 11.2 x 5.7 x 5.6 cm Left Kidney: 12.2 x 5.6 x 6.6 cm Right Kidney: Prominent calyces Left Kidney: No hydronephrosis or masses seen Bladder: wnl Bilateral Jets seen: Yes There is no evidence for hydronephrosis at this point in time. No nephrolithiasis is seen. No shy s are identified. The urinary bladder is anechoic. Bilateral ureteral jets are seen. IMPRESSION: Prominent calyces right kidney without kamini hydronephrosis at this time.
== END | disposition home or self-care (01) ==
LOC: RADUSWWP 12:44
PROVIDERS: ATTEND Urology
DX: Z87.442 Personal history of urinary calculi (principal)
CPT/HCPCS: 76770

== ENCOUNTER → 2021-03-20 | Outpatient (CLI) | payer BC, MEDICARE ==
--- NOTE | 2021-03-20 16:09 | XR ---
EXAMINATION TYPE: XR KUB DATE OF EXAM: 03/20/2021 Comparison: 02/10/2021 Clinical History: 50-year-old female N20.0 Findings: Multiple pelvic phleboliths. Mild to moderate overall stool burden. Nonobstructive bowel gas pattern. Small right-sided renal calculi are suspected measuring 4 mm and 3 mm. Impression: Small right-sided renal calculi measuring 4 mm and 3 mm are suspected. Mild to moderate stool burden. Numerous pelvic phleboliths redemonstrated.
== END | disposition home or self-care (01) ==
LOC: RADXRMAIN 13:59
PROVIDERS: ATTEND Urology
DX: N20.0 Calculus of kidney (principal)
CPT/HCPCS: 74018

== ENCOUNTER → 2021-03-20 | Outpatient (CLI) | payer BC, MEDICARE ==
--- NOTE | 2021-03-20 16:49 | CT ---
EXAMINATION TYPE: CT abdomen pelvis wo con DATE OF EXAM: 03/20/2021 COMPARISON: 01/25/2021 HISTORY: Right side flank and abdominal pain. CT DLP: 587.5 mGycm Automated exposure control for dose reduction was used. TECHNIQUE: Helical acquisition of images was performed from the lung bases through the pelvis. FINDINGS: LUNG BASES: No significant abnormality is appreciated. LIVER/GB: No significant abnormality is appreciated. PANCREAS: No significant abnormality is seen. SPLEEN: No significant abnormality is seen. ADRENALS: No significant abnormality is seen. KIDNEYS: Multiple nonobstructing right renal calculi measuring up to 4 mm. No significant bilateral h ydronephrosis or left nephrolithiasis. FREE AIR: No free air is visualized RETROPERITONEAL ADENOPATHY: None visualized REPRODUCTIVE ORGANS: No significant abnormality is seen URINARY BLADDER: No significant abnormality is seen. PELVIC ADENOPATHY: None visualized. OSSEOUS STRUCTURES: No significant abnormality is seen. BOWEL: No significant abnormality is seen. OTHER: Pelvic phleboliths seen. IMPRESSION: RIGHT NEPHROLITHIASIS WITHOUT OBSTRUCTING CALCULUS OR SIGNIFICANT HYDRONEPHROSIS.
== END | disposition home or self-care (01) ==
LOC: RADCTMAIN 16:24
PROVIDERS: ATTEND Urology
DX: N20.0 Calculus of kidney (principal)
CPT/HCPCS: 74176

== ENCOUNTER → 2021-03-27 | Outpatient (CLI) | payer BC, MEDICARE ==
[2021-03-27 10:01] VITALS: BP 156/81; PULSE 82; RESP 18; TEMP 97.7
--- NOTE | 2021-03-27 10:18 | P.PAINCN ---
History of Present Illness - Reason for Consult Consult date: 03/27/21 - History of Present Illness This is 50 years old female with a chronic history of severe neck pain and headaches started more than 10 years ago, he denies any initiating event and she reported that the neck pain increase with activity , associated with severe headache, the headach radiate from the base of the skull to the top of the head, he had occasional numbness and tingling sensation in the upper extremity, she reported that she feels some weakness in her upper extremity, she denies any fever or night sweats she denies any change in the bowel movement or urination, and had cervical fusion surgery x2 and the first one was C5 6 fusion which was done in 2011 and the other surgery was C6 7 cervical fusion which was done in 2014, and did physical therapy without any relief and she did chiropractors and she used heat therapy without any benefit she continue to use NSAID and Flexeril and she had minimal benefit from it Past Medical History Past Medical History: CVA/TIA, Memory Impairment, Musculoskeletal Disorder Additional Past Medical History / Comment(s): MIGRAINES. KIDNEY STONES - LAST ONE 06/2014. CHRONIC CONSTIPATION. Diverticulitis, ABD PAIN, OCC DIARRHEA. CERVICAL DDD, HAD FUSION X2. STROKE 09/30/14, AFFECTED MEMORY, SPEECH SOME. History of Any Multi-Drug Resistant Organisms: None Reported Past Surgical History: Ear Surgery, Hysterectomy, Orthopedic Surgery, Tubal Ligation Additional Past Surgical History / Comment(s): BMT. Cervical FUSION X2, LAST 09/30/14. Lithotripsy - last one 06/2014. Pain clinic - Last 08/03/14. Colonoscopy. Past Anesthesia/Blood Transfusion Reactions: Previous Problems w/ Anesthesia, Family History of Problems w/ Anesthesia, Postoperative Nausea & Vomiting (PONV) Additional Past Anesthesia/Blood Transfusion Reaction / Comm: SISTER AND FATHER HAVE PONV. PATIENT STATES POSS STROKE AFTER SURG 09/30/14. Past Psychological History: No Psychological Hx Reported Smoking Status: Never smoker Past Alcohol Use History: None Reported Additional Past Alcohol Use History / Comment(s): SMOKED 10 YEARS, LIGHT, QUIT 1994. Past Drug Use History: None Reported - Past Family History Mother Family Medical History: Cancer Additional Family Medical History / Comment(s): low b/p, hx kidney stones, ca cells in colon. Father Family Medical History: CVA/TIA, Hypertension Additional Family Medical History / Comment(s): POSS blood clot in neck, PRIOR TO STROKE, TOLD "IT WAS BLOCKED." Medications and Allergies Home Medications Medication Instructions Recorded Confirmed Type tiZANidine [Zanaflex] 4 mg PO BID PRN 08/29/16 03/27/21 History Acetaminophen [Tylenol] 325 mg PO Q4H PRN 02/08/21 03/27/21 History Cholecalciferol [Vitamin D3 (25 25 mcg PO DAILY 02/08/21 03/27/21 History Mcg = 1000 Iu)] Losartan Potassium [Cozaar] 50 mg PO DAILY 02/08/21 03/27/21 History Sulfamethox-Tmp 800-160Mg [Bactrim 1 tab PO Q12HR 02/08/21 03/27/21 History DS 800-160 mg] Ketorolac [Toradol] 10 mg PO Q6HR PRN #15 tab 02/10/21 03/27/21 Rx Allergies Allergy/AdvReac Type Severity Reaction Status Date / Time milk Allergy Unknown HEADACHES,EAR Verified 02/08/21 11:13 INFECTIONS amoxicillin [Amoxicillin] AdvReac Severe YEAST Verified 02/08/21 11:13 INFECTIONS adhesive tape AdvReac RED SKIN Verified 02/08/21 11:13 latex AdvReac SKIN RED Verified 02/08/21 11:13 WITH TAPES, BANDAIDS, STATES UNSURE OF LATEX ALLERG BANDAID AdvReac RED SKIN Uncoded 02/08/21 11:13 Physical Exam Vitals: Vital Signs Temp Pulse Resp BP Pulse Ox 03/27/21 09:50 97.7 F 82 18 156/81 98 Intake and Output 03/26/21 03/27/21 03/27/21 22:59 06:59 14:59 Other: Weight 83.915 kg Physical Examinations : -Constitutiona : Cooperative , not in acute distress . -HEENT : nech : supple , no Lymphadenopathy , normal thyroid size . : eyes : no ptosis , no icterus, no photophobia . - neurologic : Cranial nerve II to XII intact , no focal neurological deffecit . -psychatric : alert , oriented X 3 , appropriate affect , intact judgment and insight . -Lymphatic : no Lymphadenopathy . - musculoskeltal : Cervical Spine motor stregnth in the deltoid and biceps, normal right side , normal Left side motor stregnth biceps and the wrist extensors normal right side ,normal left side . motor stregnth in the triceps muscle . normal Right side , normal Left side deep tendon reflexes normal at the biceps , normal at Brachioradialis , normal at triceps. cervical facet loading test: Positive Bilaterally Spurling test= positive Right , positive left. Neck distraction test= positive Right , positive left. Kayla sign= positive right, positive left . Lumber spine moter stegnth lower extremities ,thigh and legs 5/5 Right side , 5/5 Left side Results Comments: MRI of the cervical spine= cervical fusion, cervical degenerative disc disease, cervical spondylosis with cervical facet arthropathy. Assessment and Plan Plan: Assessment and plan=1-cervical spondylosis with cervical facet arthropathy without myelopathy. 2-cervicogenic headache. 3-cervical degenerative disc disease. 4-history of cervical fusion at C5 6 and C6 7 levels. Clinically most of the pain is coming from the facetogenic component patient would be a good candidate for diagnostic medial branch block cervical area at C2 3, C3 4 x2 if she has positive result would proceed with RFA Time with Patient: Greater than 30 PQRS Measure Charge Sheet Measure #130: Documentation of Current Meds in Medical Chart: Patient's medications documented in chart Measure #226: Tobacco Use: Screen & Cessation Intervention: Pt not a tobacco user Measure #111: Pneumonia Vaccination: Pneumococcal vaccine administered or previously received Measure #47: Advance Care Plan: Advance care planning discussed & documented, pt chose/unable to give Measure #412: Opioid Treatment Agreement: No documentation of signed opioid treatment agreement Measure #317: Preventitive Care & Scrn High Bld Press & F/U: Pre-hypertensive or hypertensive BP documented, pt will f/u with PCP Measure #128: Body Mass Index (BMI) Screening & Follow-up: BMI documented ABOVE normal parameters - f/u documented Measure #131: Pain Assessment & Follow-up: Pain positive & plan documented, Follow-up scheduled Measure #431: Unhealthy Alcohol Use Preventative Care & Scrn: Patient not identified as an unhealthy alcohol user Mode of Arrival: Ambulatory - Pain Location Neck Non-Pharmacological Interventions: Chiropractic Treatment, Exercise, Heat, Home Exercise, Inactivity, Physical Therapy, Position/Reposition Pharmacological Interventions: Medication, PRN Medication PQRS Narrative: Smoking Status Former smoker Blood Pressure 156/81 Pain Intensity [Neck] 3 Scale Used Numeric (1 - 10) Hx Alcohol Use (MH) No Home Medications: Ambulatory Orders tiZANidine [Zanaflex] 4 mg PO BID PRN 08/29/16 Acetaminophen [Tylenol] 325 mg PO Q4H PRN 02/08/21 Cholecalciferol [Vitamin D3 (25 Mcg = 1000 Iu)] 25 mcg PO DAILY 02/08/21 Losartan Potassium [Cozaar] 50 mg PO DAILY 02/08/21 Sulfamethox-Tmp 800-160Mg [Bactrim DS 800-160 mg] 1 tab PO Q12HR 02/08/21 Ketorolac [Toradol] 10 mg PO Q6HR PRN #15 tab 02/10/21
== END ==
LOC: PNWHC3 09:09
PROVIDERS: ATTEND Specialist
DX: M47.812 Spondylosis without myelopathy or radiculopathy, cervical region (principal); M50.30 Other cervical disc degeneration, unspecified cervical region; G44.86 Cervicogenic headache; Z98.1 Arthrodesis status; Z86.73 Personal history of transient ischemic attack (TIA), and cerebral infarction without residual deficits; Z91.048 Other nonmedicinal substance allergy status; Z88.1 Allergy status to other antibiotic agents; Z91.011 Allergy to milk products; Z91.040 Latex allergy status
CPT/HCPCS: 99211

== ENCOUNTER 2021-06-02 09:53 | Day surgery (SDC) | payer BC, MEDICARE ==
[2021-06-01 12:07] VITALS: BMI 30.4
[~2021-06-02 09:53] MED LIST changes: -CIPROFLOXACIN/DEXTROSE PMX 400 MG in DEXTROSE/WATER 1 200ML.BAG IVPB PRN; -DEXAMETHASONE SOD PHOSPHATE 4 MG/ML 1 ML VIAL IV ONE; -HYDROmorphone 0.5 MG/0.5 ML SYRINGE IVP PRN; -ONDANSETRON 4 MG/2 ML VIAL IVP ONE; -SCOPOLAMINE 1.5MG/72HR PATCH TRANSDERM ONE
[2021-06-02 10:18] VITALS: RESP 16; TEMP 97.9
[2021-06-02] MEDS ORDERED: ROPIVACAINE 5MG/ML 20ML VIAL ONE (10:44)
[2021-06-02] MEDS ORDERED: methylPREDNISolone ACETATE 40 MG/ML 1 ML VIAL ONE (10:44)
[2021-06-02] MEDS ORDERED: MIDAZOLAM 2 MG/2 ML VIAL ONE (10:45)
[2021-06-02] MEDS ORDERED: fentaNYL (PF) 50 MCG/ML 2 ML AMP ONE (10:45)
--- NOTE | 2021-06-02 11:05 | P.PCN ---
Date of Procedure: 06/02/21 Procedure(s) Performed: PREOPERATIVE DIAGNOSIS: 1-Cervical Spondylosis with Facet Arthropathy.without myelopathy. 2-cervical degenerative disc disease POSTOPERATIVE DIAGNOSIS: Same as preoperative diagnosis. PROCEDURES: Diagnostic bilateral C2, C3, C4 medial branch blocks, with flu oroscopic guidance (fluoroscopy images available in radiology department ) ( to target the facet joint at bilateral C2-3 ,C3-4 )#1st ANESTHESIA: Monitored anesthesia care as per anesthesia department . EBL: Minimal PROCEDURE INDICATION: The patient with neck pain secondary to cervical arthropathy unresponsive to more conservative treatments. PROCEDURE DESCRIPTION / TECHNIQUE: The patient was seen and identified in the preoperative area. Risks, benefits, complications, and alternatives were discussed with the patient, the patient agreed to proceed with the procedure and signed the consent. IV was started. Vital signs remained stable throughout the procedure. Patient was taken to the OR and time out was completed. The patient was placed in the prone position on the procedure table. A pillow was placed under the patients chest to increase the cervical interlaminar space. The cervical area was prepped and draped in the usual sterile fashion. Critical pause was taken. Vital signs were closely monitored during the procedure. Conscious sedation was used during the procedure to decrease patients anxiety. Using cross-table lateral fluoroscopy, the centroid of the trapezoid of right C2 ,C3, C4 , was identified, marked, and localized with 1% lidocaine 1 ml at each level for skin and Sub Q infiltrations . Subsequently, a 22 G 3 spinal needle was advanced guided by fluoroscopy to the centroid of the trapezoid of Right C2 , C3, C4 [place] tip position was confirmed at the centroid of the trapezoids of Right C2 , C3 , C4 with anteroposterior fluoroscopy. Subsequently, 2 ml of preservative-free Ropivacaine 0.5% mixed with Depo- Medrol 20 mg and half ml of the mixture was injected after negative aspiration for blood and CSF. [place] was then removed intact the same procedure was repeated at the left C2 ,C3 , C4 , levels. COMPLICATIONS: No acute complications. DISPOSITION / PLANS: The patient was placed in a supine position and transferred to the recovery area in a stable condition for observation and was discharged from the recovery room after meeting discharge criteria. Home discharge instructions given to the patient by the staff. The patient was reexamined prior to discharge. The patient will schedule a follow up in the clinic in 2-4 weeks.
[2021-06-02] MEDS ORDERED: IV FLUID CONTINUATION 1,000 ML IV ONE (11:13)
[2021-06-02 11:32] VITALS: BP 118/82; PULSE 77
--- NOTE | 2021-06-02 12:07 | FL ---
Fluoroscopy History: M54.2 CERVICALGIA Baldo cervical facet block. 11 sec fl. 4 images sent.
== END 2021-06-02 11:55 | disposition home or self-care (01) ==
LOC: ORPAIN 09:53
PROVIDERS: ATTEND Specialist
DX: M54.2 Cervicalgia (principal); M54.12 Radiculopathy, cervical region; M47.812 Spondylosis without myelopathy or radiculopathy, cervical region; M50.30 Other cervical disc degeneration, unspecified cervical region; Z87.442 Personal history of urinary calculi; Z86.73 Personal history of transient ischemic attack (TIA), and cerebral infarction without residual deficits; G43.909 Migraine, unspecified, not intractable, without status migrainosus; K21.9 Gastro-esophageal reflux disease without esophagitis; Z79.899 Other long term (current) drug therapy; Z98.1 Arthrodesis status; Z98.51 Tubal ligation status; Z91.040 Latex allergy status; Z91.011 Allergy to milk products; Z88.5 Allergy status to narcotic agent; Z88.0 Allergy status to penicillin; Z91.09 Other allergy status, other than to drugs and biological substances
CPT/HCPCS: 64490; 64491; J2250; J1030; J3010; J2795

== ENCOUNTER → 2021-07-21 | Outpatient (CLI) | payer BC, MEDICARE ==
[2021-07-21 20:09] LABS: African American GFR (CKD) 85.2 (60.0-200.0); Anion Gap 13.4 mmol/L (10.00-18.00); BUN/Creat Ratio 27.56 Ratio (12.00-20.00); Blood Urea Nitrogen 24.8 mg/dL (9.0-27.0); Carbon Dioxide 22.6 mmol/L (20.0-27.5); Non-African American GFR(CKD) 73.5 (60.0-200.0); Potassium 4.3 mmol/L (3.5-5.5)
== END | disposition home or self-care (01) ==
LOC: LABWHC1 09:06
PROVIDERS: ATTEND Urology
DX: N20.0 Calculus of kidney (principal)
CPT/HCPCS: 36415; 80048; 83970

== ENCOUNTER → 2021-08-08 | Outpatient (CLI) | payer BC, MEDICARE ==
--- NOTE | 2021-08-09 11:07 | MM ---
Reason for exam: screening (asymptomatic). Last mammogram was performed 1 year and 2 months ago. History: Benign excisional biopsy of the right breast, 2018. Physical Findings: A clinical breast exam by your physician is recommended on an annual basis and results should be correlated with mammographic findings. MG 3D Screening Mammo W/Cad Bilateral CC and MLO view(s) were taken. Prior study comparison: June 21, 2020, bilateral MG 3d screening mammo w/cad. May 18, 2019, bilateral MG 3d work up w/cad STEPHANIE. The breast tissue is heterogeneously dense. This may lower the sensitivity of mammography. There is no discrete abnormality. No significant changes when compared with prior studies. ASSESSMENT: Negative, BI-RAD 1 RECOMMENDATION: Routine screening mammogram of both breasts in 1 year.
== END | disposition home or self-care (01) ==
LOC: RADMAMWWP 11:05
PROVIDERS: ATTEND Family Medicine
DX: Z12.31 Encounter for screening mammogram for malignant neoplasm of breast (principal)
CPT/HCPCS: 77063; 77067

== ENCOUNTER → 2021-08-08 | Outpatient (CLI) | payer BC, MEDICARE ==
--- NOTE | 2021-08-08 11:47 | XR ---
EXAMINATION TYPE: XR KUB DATE OF EXAM: 08/08/2021 COMPARISON: 03/20/2021 HISTORY: Right flank pain TECHNIQUE: One view abdominal series FINDINGS: The osseous structures are intact. The bowel gas pattern is nonspecific. Scoliosis of the spine with hypertrophic changes. There are multiple calcifications within the pelvis which are stable from prio r exam. Remains a single calcification overlying the right kidney measuring approximately 4 mm. Hyper trophic changes of the acetabulum can be associated with femoral acetabular impingement. IMPRESSION: 1. Suspect 4 to 5 mm right renal calculus. 2. Stable nonspecific pelvic calcifications
== END | disposition home or self-care (01) ==
LOC: RADXRMAIN 11:24
PROVIDERS: ATTEND Urology
DX: N28.89 Other specified disorders of kidney and ureter (principal)
CPT/HCPCS: 74018

== ENCOUNTER → 2021-08-31 | Outpatient (CLI) | payer BC, MEDICARE ==
[2021-08-31 22:18] LABS: Amorphous Sediment,Urine Many /hpf; Appearance,Urine Turbid (Clear); Bacteria,Urine Occasional /hpf; Bilirubin,Urine Negative (Negative); Blood,Urine Trace (Negative); Color,Urine Yellow; Glucose,Urine (UA) Negative (Negative); Ketones,Urine Negative (Negative); Leukocyte Esterase,Urine Moderate (Negative); Mucus,Urine Many /hpf; Nitrite,Urine Positive (Negative); Protein,Urine Negative (Negative); Specific Gravity,Urine 1.024 (1.001-1.035); Squamous Epithelial Cell,Urine 8 /hpf (0-4); Urobilinogen,Urine <2.0 mg/dL (<2.0); WBC,Urine 3 /hpf (0-5)
[2021-08-31 23:15] LABS: African American GFR (CKD) 85.2 (60.0-200.0); Anion Gap 10.8 mmol/L (10.00-18.00); BUN/Creat Ratio 22.11 Ratio (12.00-20.00); Blood Urea Nitrogen 19.9 mg/dL (9.0-27.0); Calcium 9.6 mg/dL (8.7-10.3); Carbon Dioxide 25.2 mmol/L (20.0-27.5); Non-African American GFR(CKD) 73.5 (60.0-200.0); Potassium 4.8 mmol/L (3.5-5.5)
[2021-08-31 23:26] LABS: Eosinophils # (A) 0.23 X 10*3/uL (0.04-0.35); Eosinophils % (A) 2.2 %; HCT 47.1 % (37.2-46.3); HGB 15.1 g/dL (12.0-15.0); Immature Grans, Automated 0.3 %; Lymphocytes # (A) 3.02 X 10*3/uL (0.90-5.00); Lymphocytes % (A) 29.2 %; MCHC 32.1 g/dL (32.0-37.0); MCV 103.1 fL (80.0-97.0); Mean Platelet Volume 10.1 fL (9.5-12.2); Monocytes # (A) 0.71 X 10*3/uL (0.20-1.00); Monocytes % (A) 6.9 %; NRBC Per 100 WBC 0 /100 WBCS (0.0-0.0); Neutrophils # (A) 6.27 X 10*3/uL (1.80-7.70); Neutrophils % (A) 60.4 %; Platelet Count 335 X 10*3/uL (140-440); RBC 4.57 X 10*6/uL (4.10-5.20); RDW 13.4 % (11.5-14.5); WBC 10.36 X 10*3/uL (4.50-10.00)
== END | disposition home or self-care (01) ==
LOC: LABPAT 16:59
PROVIDERS: ATTEND Urology
DX: Z01.812 Encounter for preprocedural laboratory examination (principal); N20.2 Calculus of kidney with calculus of ureter
CPT/HCPCS: 36415; 80048; 81001; 85025; 87086

== ENCOUNTER 2021-09-08 11:23 | Day surgery (SDC) | payer BC, MEDICARE ==
[2021-09-06 15:35] VITALS: BMI 30.2
[~2021-09-08 11:23] MED LIST changes: +CIPROFLOXACIN/DEXTROSE PMX 400 MG in DEXTROSE/WATER 1 200ML.BAG IVPB PRN; +DEXAMETHASONE SOD PHOSPHATE 4 MG/ML 1 ML VIAL IV ONE; +HYDROmorphone 0.5 MG/0.5 ML SYRINGE IVP PRN; -LIDOCAINE 1% (10MG/ML) FOR IV START INTRADERMA PRN; +MIDAZOLAM 2 MG/2 ML VIAL IV PRN; +ONDANSETRON 4 MG/2 ML VIAL IVP ONE; +SCOPOLAMINE 1 MG/72 HR PATCH TRANSDERM ONE
--- NOTE | 2021-09-08 12:00 | XR ---
KUB HISTORY: Kidney stones Comparison to prior KUB 08/08/2021 There is a slight levoscoliosis in the lumbar spine as on prior exam. Calcifications are present with in the bilateral kidneys, bowel gas obscures detail. Right-sided calcification measures approximately 7 mm, midpole, lower pole region calcification on the left measures approximately 6 mm. Multiple ellie cifications are again seen within the pelvis. IMPRESSION: Findings are similar to prior exam with limitations as above.
[2021-09-08] MEDS ORDERED: ACETAMINOPHEN TAB 500 MG TAB ONE (12:27)
[2021-09-08] MEDS ORDERED: PROPOFOL 10 MG/ML 20 ML VIAL IV ONE (15:07)
[2021-09-08] MEDS ORDERED: MIDAZOLAM 2 MG/2 ML VIAL ONE (15:07)
[2021-09-08] MEDS ORDERED: SUCCINYLCHOLINE CHLORIDE 100 MG/5 ML SYR IV ONE (15:07)
[2021-09-08] MEDS ORDERED: LIDOCAINE 2% INJ 20 MG/ML (2 ML VIAL) ONE (15:07)
[2021-09-08] MEDS ORDERED: fentaNYL (PF) 50 MCG/ML 2 ML AMP ONE (15:07)
[2021-09-08] MEDS ORDERED: IOPAMIDOL-370 50ML BTL MISCELLANE ONE (15:47)
--- NOTE | 2021-09-08 16:06 | P.HPIHPCON ---
History of Present Illness H&P Date: 09/08/21 Chief Complaint: Right renal stone This is a 51-year-old female history of a 6 mm right-sided renal stone, she is symptomatic from her stone. Option of ESWL versus ureteroscopy was discussed. Risk and benefit of each procedure was discussed in detail. She agreed to proceed with right-sided ureteroscopy with holmium laser lithotripsy. Discussed the risk which he was when limited to bleeding, infection, injury to the ureter. She understood all the risk and agree to proceed Consent for Procedure: I have explained the operation/procedure to the patient, including the risks, benefits, side effects, alternative therapies (including not receiving the proposed treatment or service), the likelihood of the patient achieving his/her goals, and potential recuperation problems for the procedure/sedation/analgesia, as well as any blood products, if indicated. I also explained to the patient the risks, benefits and side effects of the alternatives, as well as the risks related to not receiving the proposed procedure, care, treatment, or services. Past Medical History Past Medical History: CVA/TIA, Hypertension, Osteoarthritis (OA) Additional Past Medical History / Comment(s): Migraines. Kidney stones. Chronic constipation, occ diarrhea. Cervical DDD. CVA 09/30/14-slight speech effects, palpitations, IBS, History of Any Multi-Drug Resistant Organisms: None Reported Past Surgical History: Ear Surgery, Hysterectomy, Orthopedic Surgery, Tubal Ligation Additional Past Surgical History / Comment(s): Cervical Fusions X2, last 09/30/14. Lithotripsy x4. Pain clinic procedure, Colonoscopy. Rt shoulder arthroscopy Past Anesthesia/Blood Transfusion Reactions: Previous Problems w/ Anesthesia, Family History of Problems w/ Anesthesia, Motion Sickness, Postoperative Nausea & Vomiting (PONV) Additional Past Anesthesia/Blood Transfusion Reaction / Comment(s): Sister, father have PONV. Patient states had a stroke after 2nd cervical surgery 09/30/14. Smoking Status: Former smoker - Past Family History Mother Family Medical History: Cancer Additional Family Medical History / Comment(s): pre-cancer cells in colon. Father Family Medical History: CVA/TIA Additional Family Medical History / Comment(s): "Poss blood clot in neck," PRIOR TO STROKE, TOLD "IT WAS BLOCKED." "Poss blood clot in back." Medications and Allergies Home Medications Medication Instructions Recorded Confirmed Type Losartan Potassium [Cozaar] 50 mg PO DAILY 02/08/21 09/06/21 History Naproxen [Naprosyn] 500 mg PO Q12HR PRN 06/01/21 09/06/21 History Cholecalciferol [Vitamin D3 (25 50 mcg PO DAILY 09/06/21 09/06/21 History Mcg = 1000 Iu)] Cyclobenzaprine [Flexeril] 5 mg PO BID PRN 09/06/21 09/06/21 History Hydrochlorothiazide 12.5 mg PO DAILY 09/06/21 09/06/21 History [hydroCHLOROthiazide] Allergies Allergy/AdvReac Type Severity Reaction Status Date / Time milk Allergy Unknown HEADACHES,EAR Verified 09/08/21 11:53 INFECTIONS amoxicillin [Amoxicillin] AdvReac Severe YEAST Verified 09/08/21 11:53 INFECTIONS adhesive tape AdvReac RED SKIN Verified 09/08/21 11:53 latex AdvReac SKIN RED Verified 09/08/21 11:53 WITH TAPES, BANDAIDS, STATES UNSURE OF LATEX ALLERG BANDAID AdvReac RED SKIN Uncoded 09/08/21 11:53 Surgical - Exam Vital Signs Temp Pulse Resp BP Pulse Ox 98.3 F 67 20 142/91 99 09/08/21 12:00 09/08/21 12:00 09/08/21 12:00 09/08/21 12:00 09/08/21 12:00 - General no distress - Eyes normal ocular movement - ENT normal nares, normal mucosa - Respiratory normal expansion, normal respiratory effort - Abdomen Abdomen: soft, non tender Assessment and Plan Assessment: All wire for right-sided ureteroscopy, with holmium laser lithotripsy, stone basketing and stent insertion
[2021-09-08 16:12] VITALS: RESP 16; TEMP 97.3
--- NOTE | 2021-09-08 16:12 | P.OP ---
Date of Procedure: 09/08/21 Preoperative Diagnosis: Right-sided renal stone Postoperative Diagnosis: Same Procedure(s) Performed: Cystoscopy, right ureteroscopy, holmium laser lithotripsy and retrograde pyelogram Implants: None Anesthesia: RAYSAA Surgeon: Rodney Garcia Estimated Blood Loss (ml): 1 Pathology: none sent Condition: stable Disposition: PACU Indications for Procedure: This is a 51-year-old female history of a 6 mm right-sided renal stone, she is symptomatic from her stone. Option of ESWL versus ureteroscopy was discussed. Risk and benefit of each procedure was discussed in detail. She agreed to proceed with right-sided ureteroscopy with holmium laser lithotripsy. Discussed the risk which he was when limited to bleeding, infection, injury to the ureter. She understood all the risk and agree to proceed Operative Findings: Stone within the midpole of the right kidney Description of Procedure: Patient was brought to the operating room, general anesthesia was induced. She was prepped and draped in sterile fashion and placed in a dorsal lithotomy position. Cystoscopy fitted with a 21-[place] sheath was inserted per urethra, cystoscopy was performed which showed no abnormality within the bladder. Atte ntion was then carried to the right ureteral orifice which was intubated with a sensor wire. Next the wire was advanced into the renal pelvis under fluoroscopy. Next the flexible ureteroscope was backloaded over the wire and was advanced under fluoroscopy into the kidney. Renoscopy was performed which showed a stone within the mid pole, the stone appeared to be approximately 3 mm in size. Using the holmium laser the stone was dusted. Repeat renoscopy showed no additional stones or sizable fragments. Retrograde pyelogram was performed to ensure all the calyces were evaluated.. Next pullback ureteroscopy was performed which showed no injury to the ureter or any ureteral stones. Of note the renal pelvis and the ureter was dilated down to the UVJ, consistent with a recently passed stone. There was no evidence of any obstruction at the level of the UVJ as the ureteroscope was advanced without any difficulty. The bladder was emptied at the end of the case. Patient tolerated the procedure well was taken to recovery in stable condition
--- NOTE | 2021-09-08 16:14 | FL ---
EXAMINATION TYPE: FL urography retrograde DATE OF EXAM: 09/08/2021 COMPARISON: CT abdomen and pelvis March 20, 2021 HISTORY: Kidney stones TECHNIQUE: Fluoroscopy. FINDINGS: Fluoroscopic guidance was provided during right kidney stone treatment procedure performed by Dr. Lee. A total of 16 seconds of fluoroscopic time was utilized during the procedure and 1 s pot images was acquired. Single image acquired shows dilated right renal pelvis and portion of cathet er in the right ureter. IMPRESSION: As Above.
[2021-09-08] MEDS ORDERED: KETOROLAC 15 MG/ML 1 ML VIAL IVP ONE (16:18)
[2021-09-08 17:05] VITALS: BP 130/79; PULSE 72
== END 2021-09-08 17:20 | disposition home or self-care (01) ==
LOC: OR 11:23
PROVIDERS: ATTEND Urology
DX: N20.0 Calculus of kidney (principal); I10 Essential (primary) hypertension; M19.90 Unspecified osteoarthritis, unspecified site; Z86.73 Personal history of transient ischemic attack (TIA), and cerebral infarction without residual deficits; Z87.891 Personal history of nicotine dependence; Z82.49 Family history of ischemic heart disease and other diseases of the circulatory system; Z80.0 Family history of malignant neoplasm of digestive organs
CPT/HCPCS: 52353; 74420; 74018; C1769; J2250; J1100; J2405; J3010; J0744; J1885; J0330; J2704; J1170; Q9967; J2001

== ENCOUNTER 2021-10-06 08:17 | Day surgery (SDC) | payer BC, MEDICARE ==
[2021-10-04 13:12] VITALS: BMI 29.9
[~2021-10-06 08:17] MED LIST changes: -CIPROFLOXACIN/DEXTROSE PMX 400 MG in DEXTROSE/WATER 1 200ML.BAG IVPB PRN; -DEXAMETHASONE SOD PHOSPHATE 4 MG/ML 1 ML VIAL IV ONE; -HYDROmorphone 0.5 MG/0.5 ML SYRINGE IVP PRN; +LIDOCAINE 1% (10MG/ML) FOR IV START INTRADERMA PRN; -MIDAZOLAM 2 MG/2 ML VIAL IV PRN; -ONDANSETRON 4 MG/2 ML VIAL IVP ONE; -SCOPOLAMINE 1 MG/72 HR PATCH TRANSDERM ONE
[2021-10-06 08:32] VITALS: TEMP 97
[2021-10-06] MEDS ORDERED: ONDANSETRON 4 MG/2 ML VIAL ONE (08:48)
[2021-10-06] MEDS ORDERED: ONDANSETRON 4 MG/2 ML VIAL IVP ONE (08:49)
[2021-10-06] MEDS ORDERED: fentaNYL (PF) 50 MCG/ML 2 ML AMP ONE (09:14)
[2021-10-06] MEDS ORDERED: ROPIVACAINE 5MG/ML 20ML VIAL ONE (09:14)
[2021-10-06] MEDS ORDERED: MIDAZOLAM 2 MG/2 ML VIAL ONE (09:14)
[2021-10-06] MEDS ORDERED: methylPREDNISolone ACETATE 40 MG/ML 1 ML VIAL ONE (09:14)
--- NOTE | 2021-10-06 09:36 | P.PCN ---
Date of Procedure: 10/06/21 Procedure(s) Performed: PREOPERATIVE DIAGNOSIS: 1-Cervical Spondylosis with Facet Arthropathy.without myelopathy. 2-cervical degenerative disc disease POSTOPERATIVE DIAGNOSIS: Same as preoperative diagnosis. PROCEDURES: Diagnostic bilateral C2, C3, C4 medial branch blocks, with flu oroscopic guidance (fluoroscopy images available in radiology department ) ( to target the facet joint at bilateral C2-3 ,C3-4 )#2nd ANESTHESIA: Monitored anesthesia care as per anesthesia department . EBL: Minimal PROCEDURE INDICATION: The patient with neck pain secondary to cervical arthropathy unresponsive to more conservative treatments. PROCEDURE DESCRIPTION / TECHNIQUE: The patient was seen and identified in the preoperative area. Risks, benefits, complications, and alternatives were discussed with the patient, the patient agreed to proceed with the procedure and signed the consent. IV was started. Vital signs remained stable throughout the procedure. Patient was taken to the OR and time out was completed. The patient was placed in the prone position on the procedure table. A pillow was placed under the patients chest to increase the cervical interlaminar space. The cervical area was prepped and draped in the usual sterile fashion. Critical pause was taken. Vital signs were closely monitored during the procedure. Conscious sedation was used during the procedure to decrease patients anxiety. Using cross-table lateral fluoroscopy, the centroid of the trapezoid of right C2 ,C3, C4 , was identified, marked, and localized with 1% lidocaine 1 ml at each level for skin and Sub Q infiltrations . Subsequently, a 22 G 3 spinal needle was advanced guided by fluoroscopy to the centroid of the trapezoid of Right C2 , C3, C4 [place] tip position was confirmed at the centroid of the trap ezoids of Right C2 , C3 , C4 with anteroposterior fluoroscopy. Subsequently, 2 ml of preservative-free Ropivacaine 0.5% mixed with Depo-Medrol 20 mg and half ml of the mixture was injected after negative aspiration for blood and CSF. [place] was then removed intact the same procedure was repeated at the left C2 ,C3 , C4 , levels. COMPLICATIONS: No acute complications. DISPOSITION / PLANS: The patient was placed in a supine position and transferred to the recovery area in a stable condition for observation and was discharged from the recovery room after meeting discharge criteria. Home discharge instructions given to the patient by the staff. The patient was reexamined prior to discharge. The patient will schedule a follow up in the clinic in 2-4 weeks.
[2021-10-06] MEDS ORDERED: IV FLUID CONTINUATION 1,000 ML IV ONE ×2 (09:40)
[2021-10-06 09:52] VITALS: RESP 16
[2021-10-06 09:59] VITALS: BP 129/85; PULSE 64
--- NOTE | 2021-10-06 10:33 | FL ---
EXAMINATION TYPE: FL guided pain mgmt statistic DATE OF EXAM: 10/06/2021 FLUOROSCOPY Fluoroscopy time of 30 seconds was used during bilateral cervical facet block. 4 image/s document/s the procedure.
== END 2021-10-06 10:10 | disposition home or self-care (01) ==
LOC: ORPAIN 08:17
PROVIDERS: ATTEND Specialist
DX: M47.812 Spondylosis without myelopathy or radiculopathy, cervical region (principal); M50.30 Other cervical disc degeneration, unspecified cervical region; Z88.0 Allergy status to penicillin; Z91.09 Other allergy status, other than to drugs and biological substances; Z91.040 Latex allergy status; Z87.891 Personal history of nicotine dependence; M19.90 Unspecified osteoarthritis, unspecified site; R41.3 Other amnesia; Z86.73 Personal history of transient ischemic attack (TIA), and cerebral infarction without residual deficits; Z79.899 Other long term (current) drug therapy
CPT/HCPCS: 64490; 64491; J2250; J1030; J2405; J3010; J2795

== ENCOUNTER → 2021-10-13 | Outpatient (CLI) | payer BC, MEDICARE ==
--- NOTE | 2021-10-13 13:36 | XR ---
EXAMINATION TYPE: XR KUB DATE OF EXAM: 10/13/2021 Comparison: 09/08/2021 Clinical History: 51-year-old female N200 Findings: There is a 7 mm calculus projecting at the right paramedian mid abdomen. 6 mm calcification again not ed projecting at the lower pole of the left kidney. Mild overall stool burden. Redemonstrated bilater al pelvic phleboliths. Gentle levoconvex curvature lumbar spine. Impression: 1. A 7 mm calculus has moved inferiorly compared to 09/08/2021 now probably within the renal collecting system or upper right ureter. 2. Similar 6 mm nonobstructive left renal calculus.
== END | disposition home or self-care (01) ==
LOC: RADXRMAIN 11:09
PROVIDERS: ATTEND Urology
DX: N20.0 Calculus of kidney (principal)
CPT/HCPCS: 74018

== ENCOUNTER 2021-11-02 11:13 | Emergency (ER) | payer BC, MEDICARE ==
[2021-11-02 11:31] VITALS: RESP 18
--- NOTE | 2021-11-02 12:09 | ED ---
URI HPI - General Chief Complaint: Upper Respiratory Infection Stated Complaint: Sinus infection Time Seen by Provider: 11/02/21 11:31 Source: patient, RN notes reviewed Mode of arrival: ambulatory Limitations: no limitations - History of Present Illness Initial Comments: 51-year-old female presents emergency Department with chief complaint of sinus congestion, mild cough. Patient states symptoms started last 24 hours. Patient states she did take it at home [place] COVID-19 test. Patient states she has no shortness of breath no nausea vomiting no GI symptoms patient states she has had a number sick with similar symptoms. Patient offers no other complaints. - Related Data Home Medications Medication Instructions Recorded Confirmed Losartan Potassium [Cozaar] 50 mg PO DAILY 02/08/21 10/06/21 Naproxen [Naprosyn] 500 mg PO Q12HR PRN 06/01/21 10/06/21 Cholecalciferol [Vitamin D3 (25 50 mcg PO DAILY 09/06/21 10/06/21 Mcg = 1000 Iu)] Cyclobenzaprine [Flexeril] 5 mg PO BID PRN 09/06/21 10/06/21 hydroCHLOROthiazide 12.5 mg PO DAILY 09/06/21 10/06/21 Allergies Allergy/AdvReac Type Severity Reaction Status Date / Time milk Allergy Unknown HEADACHES,EAR Verified 11/02/21 12:08 INFECTIONS amoxicillin [Amoxicillin] AdvReac Severe YEAST Verified 11/02/21 12:08 INFECTIONS adhesive tape AdvReac RED SKIN Verified 11/02/21 12:08 latex AdvReac SKIN RED Verified 11/02/21 12:08 WITH TAPES, BANDAIDS, STATES UNSURE OF LATEX ALLERG Review of Systems ROS Statement: Those systems with pertinent positive or pertinent negative responses have been documented in the HPI. ROS Other: All systems not noted in ROS Statement are negative. Past Medical History Past Medical History: CVA/TIA, Hyperlipidemia, Hypertension, Memory Impairment, Musculoskeletal Disorder, Osteoarthritis (OA) Additional Past Medical History / Comment(s): Migraines. Kidney stones. Chronic constipation, occ diarrhea. Cervical DDD, hx fusions x2. CVA 09/30/14, sl memory changes. History of Any Multi-Drug Resistant Organisms: None Reported Past Surgical History: Ear Surgery, Hysterectomy, Orthopedic Surgery, Tubal Ligation Additional Past Surgical History / Comment(s): BMT. Cervical Fusions X2, last 6/25/15. Lithotripsy x4. Pain clinic - Last 08/03/14. Colonoscopy. Rt shoulder surg Past Anesthesia/Blood Transfusion Reactions: Previous Problems w/ Anesthesia, Family History of Problems w/ Anesthesia, Motion Sickness, Postoperative Nausea & Vomiting (PONV) Additional Past Anesthesia/Blood Transfusion Reaction / Comment(s): Sister, father have PONV. Patient states had a stroke after 2nd cervical surgery 09/30/14. Past Psychological History: No Psychological Hx Reported Smoking Status: Former smoker Past Alcohol Use History: None Reported Past Drug Use History: None Reported - Past Family History Mother Family Medical History: Cancer Additional Family Medical History / Comment(s): pre-cancer cells in colon. Father Family Medical History: CVA/TIA Additional Family Medical History / Comment(s): "Poss blood clot in neck," PRIOR TO STROKE, TOLD "IT WAS BLOCKED." "Poss blood clot in back." General Exam Limitations: no limitations General appearance: alert, in no apparent distress Head exam: Present: atraumatic, normocephalic, normal inspection Eye exam: Present: normal appearance, PERRL, EOMI. Absent: scleral icterus, conjunctival injection, periorbital swelling ENT exam: Present: normal exam, normal oropharynx, mucous membranes moist Neck exam: Present: normal inspection, full ROM. Absent: tenderness, meningismus, lymphadenopathy Respiratory exam: Present: normal lung sounds bilaterally. Absent: respiratory distress, wheezes, rales, rhonchi, stridor Cardiovascular Exam: Present: regular rate, normal rhythm, normal heart sounds. Absent: systolic murmur, diastolic murmur, rubs, gallop, clicks Course Vital Signs 11/02/21 11:27 Temperature 99.1 F Pulse Rate 80 Respiratory 18 Rate Blood Pressure 147/80 O2 Sat by Pulse 99 Oximetry Medical Decision Making - Medical Decision Making Patient is COVID-19 positive. Patient did receive monoclonal antibodies will be discharged in stable condition temperature discussed. - Lab Data Lab Results 11/02/21 Range/Units 11:41 Coronavirus (PCR) Detected A (Not Detectd) Disposition Clinical Impression: COVID-19 Disposition: HOME SELF-CARE Condition: Stable Instructions (If sedation given, give patient instructions): COVID-19 (Co ronavirus Disease 2019) (ED) Additional Instructions: Please return to the Emergency Department if symptoms worsen or any other concerns. Is patient prescribed a controlled substance at d/c from ED?: No Referrals: Peggy Sandra MD [Primary Care Provider] - 1-2 days Time of Disposition: 12:09
[2021-11-02] MEDS ORDERED: BEBTELOVIMAB (EUA) 175 MG/2 ML VIAL IV ONE (12:45)
[2021-11-02 14:30] VITALS: BP 127/84; PULSE 66; TEMP 98.1
== END 2021-11-02 14:30 | disposition home or self-care (01) ==
LOC: EC 11:13
DX: U07.1 COVID-19 (principal); E78.5 Hyperlipidemia, unspecified; I10 Essential (primary) hypertension; Z86.73 Personal history of transient ischemic attack (TIA), and cerebral infarction without residual deficits; M19.90 Unspecified osteoarthritis, unspecified site; G43.909 Migraine, unspecified, not intractable, without status migrainosus; Z87.891 Personal history of nicotine dependence; Z79.899 Other long term (current) drug therapy; Z91.011 Allergy to milk products; Z88.1 Allergy status to other antibiotic agents; Z91.040 Latex allergy status; Z91.048 Other nonmedicinal substance allergy status
CPT/HCPCS: 87635; 99283; Q0222

== ENCOUNTER → 2021-11-13 | Outpatient (CLI) | payer BC, MEDICARE ==
--- NOTE | 2021-11-13 09:23 | P.PAINPG ---
PQRS Measure Charge Sheet Comment: A 51 yr old female with a history of severe and chronic neck pain secondary to cervical degenerative disc diseases and spondylosis with facet arthropathy presents today for BL MBB C2-C3, C3-C4 #2. Pt states she experienced % pain relief x days s/p procedure. Pain level is currently at /10 in intensity, constant, dull/ achy/ sharp/ shooting towards . Pain is provoked by . Pain is alleviated with . Interventional pain procedures completed include BL FBs C2-C3, C3-C4 x 2 Patient is currently on Flexeril, Aleve Patient denies any side effects of the medication(s), denies excessive drowsiness or sleepiness, denies suicidal ideation and reports that the current pain medication is helping to control the pain and improve activities of daily living. Patient denies any motor or sensory deficits. Patient denies any fever or night sweats, denies any change in the bowel movements or urination. Physical Examination: -Constitutional: Cooperative. Not in acute distress . - Neurologic: Cranial nerve II to XII intact. No focal neurological deficits. - Psychatric: Alert & oriented x 3. Matching mood & appropriate affect. Judgment and insight intact. - Musculoskeletal: Cervical spine: Muscle bulk/ tone/ strength in the bilateral upper extremities normal Vertebral body tenderness to palpation over Spurling test positive Distraction test positive Facet loading test positive over BL C2-C3, C3-C4 w deep palpation Thoracic spine Muscle bulk / tone/ strength in the bilateral paraspinal muscles normal Vertebral body tender to palpation over Facet loading test positive Lumbar spine: Motor bulk/ tone/ strength lower extremities , thigh and legs : 5/5 Deep tendon reflexes : Normal Knee Jerk. Normal Ankle Jerk . Vertebral body tenderness to palpation over Lumbar Facet Loading Test positive Straight Leg Raise: positive at 30 degrees right side/ left side Gaenslen's Test positive Sacral spine : Severe tenderness over the Sacroiliac joint: right side / left side Range of motion: Flexion of the lumbar spine <60 degrees Range of motion: Extension of the lumbar spine <20 degrees Gaenslen's Test positive Xu's Test positive Brody test: positive right side / left side Thigh Thrust Test Sacral Thrust Test Assessment and plan: Chronic neck pain secondary to degenerative disc disease , spondylosis with facet arthropathy without myelopathy Recommendation of BL RFA C2-C3, C3-C4. Pt showed sufficient and satisfactory pain relief w the prior medial branch block procedures. Risks, benefits of procedure discussed and pt verbalized understanding. Denies anticoagulant use or medical history of diabetes. All patient questions answered MAPS reviewed and it was appropriate. I have spent less than 30 minutes on patient care today. Dr Rico was available by phone for the evaluation of this patient. The time was used to review the medical records including relevant urine studies and Prescription history (MAPs), review of the available imaging, evaluation and examination of the patient, coordination of care with the medical staff and if applicable referring physicians, as well as creation of the medical record PQRS Narrative: Smoking Status Former smoker Hx Alcohol Use (MH) No Home Medications: Ambulatory Orders hydroCHLOROthiazide 12.5 mg PO DAILY 09/06/21 Losartan Potassium 50 mg PO DAILY 11/02/21 Naproxen Sodium [Aleve] 220 mg PO BID 11/02/21 Controlled Substance Measures - Controlled Substance Measures Is patient prescribed a controlled substance at discharge?: No
[2021-11-13 09:37] VITALS: BP 144/95; PULSE 87; RESP 18; TEMP 98.1
== END ==
LOC: PNWHC3 08:48
PROVIDERS: ATTEND Specialist
DX: M50.30 Other cervical disc degeneration, unspecified cervical region (principal); M47.812 Spondylosis without myelopathy or radiculopathy, cervical region; G89.29 Other chronic pain; Z87.891 Personal history of nicotine dependence; Z91.011 Allergy to milk products; Z88.1 Allergy status to other antibiotic agents; Z91.048 Other nonmedicinal substance allergy status; Z91.040 Latex allergy status
CPT/HCPCS: 99211

== ENCOUNTER 2021-12-01 12:57 | Day surgery (SDC) | payer BC, MEDICARE ==
[~2021-12-01 12:57] MED LIST changes: -LIDOCAINE 1% (10MG/ML) FOR IV START INTRADERMA PRN
[2021-12-01] MEDS ORDERED: LIDOCAINE 1% (10MG/ML) FOR IV START INTRADERMA ONE (13:20)
[2021-12-01 13:24] VITALS: RESP 16; TEMP 97
[2021-12-01] MEDS ORDERED: ROPIVACAINE 5MG/ML 20ML VIAL ONE (13:49)
[2021-12-01] MEDS ORDERED: MIDAZOLAM 2 MG/2 ML VIAL ONE (13:49)
[2021-12-01] MEDS ORDERED: fentaNYL (PF) 50 MCG/ML 2 ML AMP ONE (13:49)
[2021-12-01] MEDS ORDERED: DEXAMETHASONE SOD PHOSPHATE 10 MG/ML 1 ML VIAL ONE (13:49)
[2021-12-01] MEDS ORDERED: IV FLUID CONTINUATION 300 ML IV ONE (14:33)
--- NOTE | 2021-12-01 14:33 | P.PCN ---
Date of Procedure: 12/01/21 Description of Procedure: PREOPERATIVE DIAGNOSIS: cervical spondylosis without myelopathy, and migraine headache. POSTOPERATIVE DIAGNOSIS: cervical spondylosis without myelopathy, and migraine headaches PROCEDURES: Right sided Radiofrequency thermocoagulation of C2-C3 , C3- C4 medial branches with fluoroscopic guidance, SURGEON: Demario Vazquez ANESTHESIA: Local , and IV sedation 2 mg of midazolam, and 100 g of fentanyl EBL: None Specimen removed: None Fluoroscopic image: saved to electronic medical records PROCEDURE INDICATION: The patient returns for cervical RFTC following previous positive diagnostic nerve blocks. Patient tried conservative therapy. PROCEDURE DESCRIPTION: The patient was seen and identified in the preoperative area. Risks, benefits, complications, and alternatives were discussed with the patient. The patient agreed to pursue with the procedure and signed the consent. IV was started and vital signs were stable. Patient was taken to the procedure room and time out was completed. The patient was placed in the prone position on the procedure table and cervical area was prepped with ChloraPrep 2 and draped in the usual sterile fashion. Critical pause was taken. Vital signs were closely monitored during the procedure. Using AP fluoroscopy, the waists of lateral margins of C2, C3, C4 were identified and localized with 1% lidocaine. We used 20 [id number] radiofrequency cannula with a 10-mm active tip. Using the posterior approach, radiofrequency cannulas were guided by anterior posterior fluoroscopy to the waists of the lateral masses of C2,C3, C4. Needle tip position was confirmed at the centroid of the trapezoids of C2 , C3, C4 with lateral fluoroscopy. Each site then underwent motor testing was done at 2 Hz and 0 to 2.5 volt with local stimulation, but no radicular symptoms . 0.5 mL of block solution was injected after negative aspiration to each level before radiofrequency ablation. Thereafter C2, C3, C4 underwent radiofrequency thermocoagulation at 80 degrees celsius for 90 seconds. After thermocoagulation, the C2, C3, C4 underwent injection of 0.5 mL of block solution after negative aspiration of CSF and blood and with no paresthesias. Block solution contained 10 MG of dexamethasone and 1 mL of preservative-free 0.5% ropivacaine. Cannulas were retracted approximately 1 cm and then upon further withdrawal of the needles, the skin was infiltrated with 0.5 mL of 0.5% ropivacaine at each level. Skin was cleansed and bandages were applied. COMPLICATIONS: None. DISPOSITION / PLANS: The patient was placed in a supine position and transferred to the recovery area in a stable condition for observation and was discharged from the recovery room after meeting discharge criteria. Home discharge instructions given to the patient by the staff. The patient was reexamined prior to discharge. The patient will schedule to follow up with the pain clinic in 2-4 weeks
--- NOTE | 2021-12-01 14:38 | FL ---
Fluoroscopy INDICATION: Pain FINDINGS: Fluoroscopy time: 17 seconds. Images obtained: 4. IMPRESSIONS: 1. Documentation of fluoroscopy.
[2021-12-01 14:57] VITALS: BP 133/87; PULSE 55
== END 2021-12-01 15:10 | disposition home or self-care (01) ==
LOC: ORPAIN 12:57
DX: M47.812 Spondylosis without myelopathy or radiculopathy, cervical region (principal); M50.31 Other cervical disc degeneration, high cervical region; R41.3 Other amnesia; M54.9 Dorsalgia, unspecified; I10 Essential (primary) hypertension; E78.5 Hyperlipidemia, unspecified; I63.9 Cerebral infarction, unspecified; R19.7 Diarrhea, unspecified; K59.00 Constipation, unspecified; G43.909 Migraine, unspecified, not intractable, without status migrainosus; Z91.011 Allergy to milk products; Z88.1 Allergy status to other antibiotic agents; Z91.040 Latex allergy status; Z79.1 Long term (current) use of non-steroidal anti-inflammatories (NSAID); Z79.899 Other long term (current) drug therapy
CPT/HCPCS: 64633; 64634; J2250; J1100; J3010; J2795

== ENCOUNTER → 2021-12-08 | Outpatient (CLI) | payer BC, MEDICARE ==
--- NOTE | 2021-12-08 13:17 | XR ---
EXAMINATION TYPE: XR KUB DATE OF EXAM: 12/08/2021 1:01 PM CLINICAL HISTORY: Kidney stone. TECHNIQUE: Two supine KUB images of the abdomen are obtained. COMPARISON: Abdominal x-ray October 13, 2021. FINDINGS: Approximately 8 mm calculus adjacent to right L3 transverse process redemonstrated. Stable approximate 6 mm calculus projecting over lower pole left kidney. Scattered bilateral pelvic phleboli ths redemonstrated. Slight levoconvex scoliotic curvature centered at L3-L4 level. Overall nonobstructive bowel gas patte rn. IMPRESSION: As above. No significant change from most recent prior.
== END | disposition home or self-care (01) ==
LOC: RADXRMAIN 12:44
PROVIDERS: ATTEND Urology
DX: N20.0 Calculus of kidney (principal)
CPT/HCPCS: 74018

== ENCOUNTER → 2021-12-13 | Outpatient (CLI) | payer BC, MEDICARE ==
[2021-12-13 18:07] LABS: BUN/Creat Ratio 22.17 Ratio (12.00-20.00); Calcium 9.4 mg/dL (8.7-10.3); Carbon Dioxide 26.2 mmol/L (20.0-27.5); Non-African American GFR(CKD) 73.3 (60.0-200.0); Potassium 3.8 mmol/L (3.5-5.5)
[2021-12-13 18:25] LABS: Basophils # (A) 0.12 X 10*3/uL (0.00-0.10); Basophils % (A) 1.3 %; Eosinophils # (A) 0.15 X 10*3/uL (0.04-0.35); Eosinophils % (A) 1.7 %; HCT 44.9 % (37.2-46.3); HGB 14.6 g/dL (12.0-15.0); Immature Grans, Automated 0.3 %; Lymphocytes # (A) 2.83 X 10*3/uL (0.90-5.00); Lymphocytes % (A) 31.2 %; MCH 31.7 pg (27.0-32.0); MCHC 32.5 g/dL (32.0-37.0); MCV 97.4 fL (80.0-97.0); Mean Platelet Volume 9.8 fL (9.5-12.2); Monocytes # (A) 0.63 X 10*3/uL (0.20-1.00); Monocytes % (A) 6.9 %; NRBC Per 100 WBC 0 /100 WBCS (0.0-0.0); Neutrophils # (A) 5.31 X 10*3/uL (1.80-7.70); Neutrophils % (A) 58.6 %; Platelet Count 293 X 10*3/uL (140-440); RBC 4.61 X 10*6/uL (4.10-5.20); RDW 13.2 % (11.5-14.5); WBC 9.07 X 10*3/uL (4.50-10.00)
[2021-12-13 21:31] LABS: Appearance,Urine Cloudy (Clear); Bilirubin,Urine Negative (Negative); Blood,Urine Moderate (Negative); Color,Urine Yellow (Yellow); Ketones,Urine Negative (Negative); Nitrite,Urine Positive (Negative); Specific Gravity,Urine 1.015 (1.001-1.030); Urobilinogen,Urine 0.2 (0.2,1.0)
[2021-12-13 23:02] LABS: Bacteria,Urine 4+ /HPF (None Seen)
== END | disposition home or self-care (01) ==
LOC: LABPAT 11:59
PROVIDERS: ATTEND Urology
DX: Z01.812 Encounter for preprocedural laboratory examination (principal); N20.0 Calculus of kidney; R31.29 Other microscopic hematuria
CPT/HCPCS: 80048; 81001; 85025; 87077; 87086; 87186

== ENCOUNTER 2021-12-22 06:40 | Day surgery (SDC) | payer BC, MEDICARE ==
[2021-12-21 09:40] VITALS: BMI 29.9
[~2021-12-22 06:40] MED LIST changes: +LIDOCAINE 1% (10MG/ML) FOR IV START INTRADERMA PRN
[2021-12-22 07:13] VITALS: TEMP 98
[2021-12-22] MEDS ORDERED: ONDANSETRON 4 MG/2 ML VIAL ONE (07:17)
[2021-12-22] MEDS ORDERED: ONDANSETRON 4 MG/2 ML VIAL IVP ONE (07:22)
[2021-12-22] MEDS ORDERED: MIDAZOLAM 2 MG/2 ML VIAL ONE (07:25)
[2021-12-22] MEDS ORDERED: methylPREDNISolone ACETATE 40 MG/ML 1 ML VIAL ONE (07:25)
[2021-12-22] MEDS ORDERED: ROPIVACAINE 5MG/ML 20ML VIAL ONE (07:25)
[2021-12-22] MEDS ORDERED: fentaNYL (PF) 50 MCG/ML 2 ML AMP ONE (07:25)
--- NOTE | 2021-12-22 07:56 | P.PCN ---
Date of Procedure: 12/22/21 Procedure(s) Performed: PREOPERATIVE DIAGNOSIS: Cervical spondylosis with Facet Arthropathy without myelopathy. POSTOPERATIVE DIAGNOSIS: Cervical spondylosis with Facet Arthropathy without myelopathy. PROCEDURES: Radiofrequency thermocoagulation, Left C2 , C3, C4, medial branch with Fluroscopy [place](fluoroscopy was available in Radiology department ) (to denervate the facet joint at Left C2-3 ,C3- 4 ) ANESTHESIA: Monitored anesthesia care as per anesthesia department . EBL: Minimal PROCEDURE INDICATION: The patient with neck pain secondary to cervical arthropathy who had more than 50% relief of her pain with previous diagnostic cervical medial branch block. PROCEDURE DESCRIPTION / TECHNIQUE: The patient was seen and identified in the preoperative area. Risks, benefits, complications, and alternatives were discussed with the patient, the patient agreed to proceed with the procedure and signed the consent. IV was started. Vital signs remained stable throughout the procedure. Patient was taken to the OR and time out was completed. The patient was placed in the prone position on the procedure table. A pillow was placed under the patients chest to increase the cervical interlaminar space. The cervical area was prepped and draped in the usual sterile fashion. Critical pause was taken. Vital signs were closely monitored during the procedure. Conscious sedation was used during the procedure to decrease patients anxiety. Using cross-table lateral fluoroscopy, the centroid of the trapezoid of Left C2 ,C3, C4 were identified, marked, and localized with 1% lidocaine. Subsequently, a 20 [id number] radiofrequency cannula with a 10-mm active tip was advanced guided by fluoroscopy to the centroid of the trapezoid of left C2 ,C3, C4 . Needle tip position was confirmed at the centroid of the trapezoids of left C2 ,C3, C4, with anteroposterior fluoroscopy. Each site then underwent sensory testing at 50 Hz and 0 to 1 volt and motor testing at 2 Hz and 0 to 3 volt with local stimulation, but no radicular symptoms down the arm. Thereafter each sites underwent radiofrequency thermocoagulation at 80 degrees celsius for 90 seconds after injecting 0.5 ml of PF Ropivacaine 0.5 %. After thermocoagulation, 1 ml of the block solution containing Depo-Medrol 40 mg and 3 mL of preservative-free normal saline was injected at the left C2 , C3, C4, levels after negative aspiration of CSF and blood and with no paresthesias. Cannulas were retracted while injecting lidocaine 1% until the needle is out. Skin was cleansed and bandages were applied. COMPLICATIONS: No acute complications. DISPOSITION / PLANS: The patient was placed in a supine position and transferred to the recovery area in a stable condition for observation and was discharged from the recovery room after meeting discharge criteria. Home discharge instructions given to the patient by the staff. The patient was reexamined prior to discharge. The patient will schedule a follow up in the clinic in 2-4 weeks.
[2021-12-22] MEDS ORDERED: IV FLUID CONTINUATION 1,000 ML IV ONE (07:58)
[2021-12-22 08:01] VITALS: RESP 18
--- NOTE | 2021-12-22 08:07 | FL ---
Fluoroscopy History: corinna lumbar facets 8 sec fl time used RADIO FREQ CERVICAL, DR. AMAYA, 15 SEC FLUORO, 4 IMAGES SENT
[2021-12-22 08:18] VITALS: BP 119/77; PULSE 58
== END 2021-12-22 08:29 | disposition home or self-care (01) ==
LOC: ORPAIN 06:40
PROVIDERS: ATTEND Specialist
DX: M47.812 Spondylosis without myelopathy or radiculopathy, cervical region (principal); F41.9 Anxiety disorder, unspecified; I10 Essential (primary) hypertension; E11.9 Type 2 diabetes mellitus without complications; E78.5 Hyperlipidemia, unspecified; G43.909 Migraine, unspecified, not intractable, without status migrainosus; Z91.040 Latex allergy status; Z88.1 Allergy status to other antibiotic agents
CPT/HCPCS: 64633; 64634; J2250; J1030; J2405; J3010; J2795

== ENCOUNTER 2021-12-28 10:18 | Day surgery (SDC) | payer BC, MEDICARE ==
[2021-12-25 16:07] VITALS: BMI 29.9
--- NOTE | 2021-12-27 11:44 | P.HPIHPCON ---
History of Present Illness H&P Date: 12/27/21 this is a 51-year-old female history of recurrent kidney stones. Underwent a KUB that showed evidence of an 8 mm right-sided renal pelvis stone, 6 mm left- sided lower pole stone.she is intermittently symptomatic from her stone, causing recurrent UTIs. Discussed with her the option of bilateral ureteroscopy with holmium laser to address her stone. Discussed risk which includes but not limited to bleeding, infection, injury to ureter. Discussed also the risk from anesthesia. She understood all the risk and agreed to proceed Consent for Procedure: I have explained the operation/procedure to the patient, including the risks, benefits, side effects, alternative therapies (including not receiving the proposed treatment or service), the likelihood of the patient achieving his/her goals, and potential recuperation problems for the procedure/sedation/analgesia, as well as any blood products, if indicated. I also explained to the patient the risks, benefits and side effects of the alternatives, as well as the risks related to not receiving the proposed procedure, care, treatment, or services. Past Medical History Past Medical History: CVA/TIA, Hyperlipidemia, Hypertension, Memory Impairment, Musculoskeletal Disorder, Osteoarthritis (OA) Additional Past Medical History / Comment(s): Migraines. Kidney stones. Chronic constipation, occ diarrhea. Cervical DDD, hx fusions x2. CVA 09/30/14, sl memory changes. History of Any Multi-Drug Resistant Organisms: None Reported Past Surgical History: Ear Surgery, Hysterectomy, Orthopedic Surgery, Tubal Ligation Additional Past Surgical History / Comment(s): BMT. Cervical Fusions X2, last 09/30/14. Lithotripsy x4. Pain clinic - Last 08/03/14. Colonoscopy. Rt shoulder surg Past Anesthesia/Blood Transfusion Reactions: Previous Problems w/ Anesthesia, Family History of Problems w/ Anesthesia, Motion Sickness, Postoperative Nausea & Vomiting (PONV) Additional Past Anesthesia/Blood Transfusion Reaction / Comment(s): Sister, father have PONV. Patient states had a stroke after 2nd cervical surgery 09/30/14. Past Psychological History: No Psychological Hx Reported Smoking Status: Former smoker Past Alcohol Use History: None Reported Additional Past Alcohol Use History / Comment(s): SMOKED 10 YEARS, LIGHT, QUIT 1996. Past Drug Use History: None Reported - Past Family History Mother Family Medical History: Cancer Additional Family Medical History / Comment(s): pre-cancer cells in colon. Father Family Medical History: CVA/TIA Additional Family Medical History / Comment(s): "Poss blood clot in neck," PRIOR TO STROKE, TOLD "IT WAS BLOCKED." "Poss blood clot in back." Medications and Allergies Home Medications Medication Instructions Recorded Confirmed Type hydroCHLOROthiazide 12.5 mg PO DAILY 09/06/21 12/25/21 History Losartan Potassium 50 mg PO DAILY 11/02/21 12/25/21 History Naproxen Sodium [Aleve] 220 mg PO BID PRN 11/02/21 12/25/21 History Allergies Allergy/AdvReac Type Severity Reaction Status Date / Time milk Allergy Unknown HEADACHES,EAR Verified 12/25/21 16:00 INFECTIONS amoxicillin [Amoxicillin] AdvReac Severe YEAST Verified 12/25/21 16:00 INFECTIONS adhesive tape AdvReac RED SKIN Verified 12/25/21 16:00 latex AdvReac SKIN RED Verified 12/25/21 16:00 WITH TAPES, BANDAIDS, STATES UNSURE OF LATEX ALLERG Surgical - Exam - General no distress, moderate pain - Eyes normal ocular movement - Respiratory normal expansion, normal respiratory effort - Abdomen Abdomen: soft, non tender Assessment and Plan Assessment: OR for bilateral ureteroscopy, holmium laser lithotripsy, stone basketing and possible stent insertion
[~2021-12-28 10:18] MED LIST changes: +CIPROFLOXACIN/DEXTROSE PMX 400 MG in DEXTROSE/WATER 1 200ML.BAG IVPB PRN; -LIDOCAINE 1% (10MG/ML) FOR IV START INTRADERMA PRN
--- NOTE | 2021-12-28 10:34 | XR ---
EXAMINATION TYPE: XR KUB DATE OF EXAM: 12/28/2021 10:26 AM INDICATION: Patient age:Female; 51 years old; Reason for study: PRE OP DAY OF PROCEDURE 12/28/21; COMPARISON: CT 03/20/2021 KUB 12/08/2021 TECHNIQUE: One radiographic view of the abdomen was obtained. FINDINGS: A renal calculus in the mid kidney measuring 4 mm the left kidney is partially obstructed b y gas. No obvious left calculus. IMPRESSION: Right renal calculus. No Evidence for left renal calculi. Consider evaluation with CT if clinically w arranted.
[2021-12-28] MEDS ORDERED: ONDANSETRON 4 MG/2 ML VIAL ONE (10:45)
[2021-12-28] MEDS ORDERED: ONDANSETRON 4 MG/2 ML VIAL IVP ONE (10:47)
[2021-12-28] MEDS ORDERED: DEXAMETHASONE SOD PHOSPHATE 4 MG/ML 1 ML VIAL IVP ONE (10:48)
[2021-12-28] MEDS ORDERED: DEXAMETHASONE SOD PHOSPHATE 4 MG/ML 1 ML VIAL IV ONE (10:50)
[2021-12-28] MEDS ORDERED: LACTATED RINGERS 1,000 ML IV SCH (10:50)
[2021-12-28] MEDS ORDERED: PROPOFOL 10 MG/ML 20 ML VIAL IV ONE (12:00)
[2021-12-28] MEDS ORDERED: LIDOCAINE 2% INJ 20 MG/ML (2 ML VIAL) ONE (12:00)
[2021-12-28] MEDS ORDERED: fentaNYL (PF) 50 MCG/ML 2 ML AMP ONE (12:00)
[2021-12-28] MEDS ORDERED: MIDAZOLAM 2 MG/2 ML VIAL ONE (12:00)
[2021-12-28 13:08] VITALS: TEMP 96.8
--- NOTE | 2021-12-28 13:08 | P.OP ---
Date of Procedure: 12/28/21 Preoperative Diagnosis: Bilateral renal stones Postoperative Diagnosis: Right renal stone Procedure(s) Performed: Cystoscopy, bilateral ureteroscopy, right sided holmium laser lithotripsy, stone basketing Implants: none Anesthesia: RAYSAA Surgeon: Rodney Garcia Estimated Blood Loss (ml): 5 Pathology: none sent Condition: stable Disposition: PACU Indications for Procedure: this is a 51-year-old female history of recurrent kidney stones. Underwent a KU B that showed evidence of an 8 mm right-sided renal pelvis stone, 6 mm left- sided lower pole stone.she is intermittently symptomatic from her stone, causing recurrent UTIs. Discussed with her the option of bilateral ureteroscopy with holmium laser to address her stone. Discussed risk which includes but not limited to bleeding, infection, injury to ureter. Discussed also the risk from anesthesia. She understood all the risk and agreed to proceed Operative Findings: Right-sided renal stone Description of Procedure: Patient brought to the operating room, general anesthesia was induced. She was prepped and draped in sterile fashion and placed in dorsal lithotomy position, cystoscopy fitted 21-[place] sheath was inserted per urethra, cystoscopy was performed which showed no abnormality within the bladder. Attention was then carried to the right ureteral orifice which was intubated with a sensor wire. Next under fluoroscopy a flexible ureteroscope was advanced over the wire into the kidney. Renoscopy was performed which showed a stone in the upper pole. Using the holmium laser the stone was dusted. Repeat renoscopy showed no s izable fragments or injury to the kidney. at this time one of this fragments was grasped to be sent for analysis. Pullback ureteroscopy was performed which showed no injury to the ureter or any ureteral stones. At this time attention was carried to the left side which was intubated with a sensor wire. Next under fluoroscopy flexible ureteroscope was advanced over the wire, renoscopy was performed which showed no abnormality within the kidney. All calyces were evaluated and showed no evidence of stone. Pullback ureteroscopy was performed which showed no injury to the ureter or any ureteral stones. The bladder was emptied at the end of the case. Patient tolerated the procedure well was taken to recovery in stable condition
--- NOTE | 2021-12-28 13:10 | FL ---
Intraoperative/procedural fluoroscopic services were provided. Total fluoroscopy time is 5.9 seconds with a total of 2 submitted images to PACS. Please see the operative/procedural note for further deta ils.
[2021-12-28 13:56] VITALS: RESP 20
[2021-12-28 14:55] VITALS: BP 112/70; PULSE 80
[2021-12-29] MEDS ORDERED: HYDROmorphone 0.5 MG/0.5 ML SYRINGE IVP PRN (07:00)
== END 2021-12-28 14:30 | disposition home or self-care (01) ==
LOC: OR 10:18
PROVIDERS: ATTEND Urology
DX: N20.0 Calculus of kidney (principal); I10 Essential (primary) hypertension; E78.5 Hyperlipidemia, unspecified; M19.90 Unspecified osteoarthritis, unspecified site; M79.9 Soft tissue disorder, unspecified; G43.909 Migraine, unspecified, not intractable, without status migrainosus; R41.3 Other amnesia; M50.30 Other cervical disc degeneration, unspecified cervical region; K91.0 Vomiting following gastrointestinal surgery; N39.0 Urinary tract infection, site not specified; K59.09 Other constipation; Z91.011 Allergy to milk products; Z91.048 Other nonmedicinal substance allergy status; Z91.040 Latex allergy status; Z86.73 Personal history of transient ischemic attack (TIA), and cerebral infarction without residual deficits; Z88.0 Allergy status to penicillin; Z98.890 Other specified postprocedural states; Z98.51 Tubal ligation status; Z90.710 Acquired absence of both cervix and uterus; Z87.891 Personal history of nicotine dependence; Z84.89 Family history of other specified conditions; Z82.3 Family history of stroke; Z80.0 Family history of malignant neoplasm of digestive organs; Z79.1 Long term (current) use of non-steroidal anti-inflammatories (NSAID); Z79.899 Other long term (current) drug therapy; T75.3XXD Motion sickness, subsequent encounter
CPT/HCPCS: 52353; 82365; 74018; C1758 ×4; C1894; C1769 ×3; J2250; J1100; J2405; J3010; J0744; J2704; J2001

== ENCOUNTER 2021-12-30 14:53 | Emergency (ER) | payer BC, MEDICARE ==
[2021-12-30 15:07] VITALS: TEMP 97.8
[2021-12-30] MEDS ORDERED: SODIUM CHLORIDE 0.9% 1,000 ML IV STA (15:23)
[2021-12-30] MEDS ORDERED: KETOROLAC 15 MG/ML 1 ML VIAL IVP STA (15:23)
[2021-12-30 15:37] LABS: Basophils # (A) 0.1 k/uL (0-0.2); Basophils % (A) 1 %; Eosinophils # (A) 0.2 k/uL (0-0.7); Eosinophils % (A) 2 %; HCT 40.6 % (34.0-46.0); HGB 13.9 gm/dL (11.4-16.0); Lymphocytes # (A) 3.2 k/uL (1.0-4.8); Lymphocytes % (A) 28 %; MCH 32.4 pg (25.0-35.0); MCHC 34.2 g/dL (31.0-37.0); MCV 94.8 fL (80.0-100.0); Mean Platelet Volume 7.5; Monocytes # (A) 0.7 k/uL (0-1.0); Monocytes % (A) 6 %; Neutrophils # (A) 7.1 k/uL (1.3-7.7); Neutrophils % (A) 62 %; Platelet Count 286 k/uL (150-450); RBC 4.28 m/uL (3.80-5.40); RDW 13.3 % (11.5-15.5); WBC 11.5 k/uL (3.8-10.6)
[2021-12-30 15:50] LABS: Albumin 4.4 g/dL (3.5-5.0); Calcium 9.6 mg/dL (8.4-10.2); Potassium 3.8 mmol/L (3.5-5.1); Total Bilirubin 0.4 mg/dL (0.2-1.3); Total Protein 7.2 g/dL (6.3-8.2)
--- NOTE | 2021-12-30 16:01 | CT ---
EXAMINATION TYPE: CT abdomen pelvis wo con DATE OF EXAM: 12/30/2021 COMPARISON: 03/20/2021 HISTORY: Elevated d-dimer, heartburn sensation, pressure CT DLP: 644.6 mGycm Automated exposure control for dose reduction was used. Images obtained from the diaphragm to the floor the pelvis with no contrast. The lung bases are clear. No pleural effusion. Heart size is normal. No pericardial effusion. Liver s pleen and stomach pancreas gallbladder appear intact. The bile ducts are not dilated. There is no adrenal mass. Kidneys have normal size. There is moderate right-sided hydronephrosis and hydroureter. No definite ureteral calculus seen. Bladder distends smoothly. There is 3 mm calculus lo wer pole left kidney. There is 2 mm calculus posterior right renal pelvis. There is some mild right-s ided perinephric fat stranding. No retroperitoneal adenopathy. There is no mesenteric edema. No ascites or free air. No sign of a bowel obstruction. Appendix not se en. No sign of thickened appendix The lumbar spine is intact. No compression fracture. Bony pelvis is intact. The hip joints are intact . IMPRESSION: Moderately severe right-sided hydronephrosis and hydroureter. Bilateral renal calculi. No ureteral ca lculus seen. Hydronephrosis appears new compared to old exam. Left renal calculus appears new compared to old exam. There is decrease in the right renal calculi co mpared to old exam.
[2021-12-30 16:09] LABS: Appearance,Urine Cloudy (Clear); Bilirubin,Urine Negative (Negative); Blood,Urine Moderate (Negative); Color,Urine Yellow; Glucose,Urine (UA) Negative (Negative); Ketones,Urine Negative (Negative); Leukocyte Esterase,Urine Moderate (Negative); Mucus,Urine Occasional /hpf; Nitrite,Urine Negative (Negative); PH, Urine 5.5 (5.0-8.0); Protein,Urine Trace (Negative); RBC,Urine 64 /hpf (0-5); Specific Gravity,Urine 1.019 (1.001-1.035); Squamous Epithelial Cell,Urine 2 /hpf (0-4); Urobilinogen,Urine <2.0 mg/dL (<2.0); WBC,Urine 51 /hpf (0-5)
[2021-12-30] MEDS ORDERED: ACET/COD 300 MG/30 MG STARTER PACK 6 TAB BTL PO STA (16:49)
--- NOTE | 2021-12-30 16:51 | ED ---
Female Urogenital HPI - General Chief complaint: Urogenital Stated complaint: Post-op abd pain Time Seen by Provider: 12/30/21 15:15 Source: patient, RN notes reviewed Mode of arrival: ambulatory Limitations: no limitations - History of Present Illness Initial comments: This is a 51-year-old female who presents to the emergency department for right lower quadrant and right flank pain. She has a history of recurrent kidney stones and underwent a lithotripsy with Dr. Garcia on 12/28. Today, she began to experience pain with urination and in the RLQ with radiation to the right flank. States that this feels like another kidney stone. When she provided a urine sample, she saw something in the container and wonders if she may have just passed it. Denies any nausea or vomiting. Denies any fevers, chills, sore throat, cough, dyspnea, chest pain, palpitations, nausea, vomiting, diarrhea, or headaches. MD Complaint: dysuria - Related Data Home Medications Medication Instructions Recorded Confirmed hydroCHLOROthiazide 12.5 mg PO DAILY 09/06/21 12/28/21 Losartan Potassium 50 mg PO DAILY 11/02/21 12/28/21 Naproxen Sodium [Aleve] 220 mg PO BID PRN 11/02/21 12/28/21 Previous Rx's Medication Instructions Recorded Ketorolac [Toradol] 10 mg PO Q6HR PRN #10 tab 12/28/21 Cephalexin [Keflex] 500 mg PO Q8HR 7 Days #21 cap 12/30/21 Allergies Allergy/AdvReac Type Severity Reaction Status Date / Time milk Allergy Unknown HEADACHES,EAR Verified 12/30/21 15:07 INFECTIONS amoxicillin [Amoxicillin] AdvReac Severe YEAST Verified 12/30/21 15:07 INFECTIONS adhesive tape AdvReac RED SKIN Verified 12/30/21 15:07 latex AdvReac SKIN RED Verified 12/30/21 15:07 WITH TAPES, BANDAIDS, STATES UNSURE OF LATEX ALLERG Review of Systems ROS Statement: Those systems with pertinent positive or pertinent negative responses have been documented in the HPI. ROS Other: All systems not noted in ROS Statement are negative. Past Medical History Past Medical History: CVA/TIA, Hyperlipidemia, Hypertension, Memory Impairment, Musculoskeletal Disorder, Osteoarthritis (OA) Additional Past Medical History / Comment(s): Migraines. Kidney stones. Chronic constipation, occ diarrhea. Cervical DDD, hx fusions x2. CVA 09/30/14, sl memory changes. History of Any Multi-Drug Resistant Organisms: None Reported Past Surgical History: Ear Surgery, Hysterectomy, Orthopedic Surgery, Tubal Ligation Additional Past Surgical History / Comment(s): BMT. Cervical Fusions X2, last 09/30/14. Lithotripsy x4. Pain clinic - Last 08/03/14. Colonoscopy. Rt shoulder surg Past Anesthesia/Blood Transfusion Reactions: Previous Problems w/ Anesthesia, Family History of Problems w/ Anesthesia, Motion Sickness, Postoperative Nausea & Vomiting (PONV) Additional Past Anesthesia/Blood Transfusion Reaction / Comment(s): Sister, father have PONV. Patient states had a stroke after 2nd cervical surgery 09/30/14. Past Psychological History: No Psychological Hx Reported Smoking Status: Former smoker Past Alcohol Use History: None Reported Past Drug Use History: None Reported - Past Family History Mother Family Medical History: Cancer Father Family Medical History: CVA/TIA Additional Family Medical History / Comment(s): "Poss blood clot in neck," PRIOR TO STROKE, TOLD "IT WAS BLOCKED." "Poss blood clot in back." General Exam Limitations: no limitations General appearance: alert, in distress Head exam: Present: atraumatic, normocephalic, normal inspection Respiratory exam: Present: normal lung sounds bilaterally. Absent: respiratory distress, wheezes, rales, rhonchi, stridor Cardiovascular Exam: Present: regular rate, normal rhythm, normal heart sounds. Absent: systolic murmur, diastolic murmur, rubs, gallop, clicks GI/Abdominal exam: Present: soft, tenderness (RLQ), normal bowel sounds. Absent: distended, guarding, rebound, rigid Back exam: Present: CVA tenderness (R) Neurological exam: Present: alert, oriented X3, CN II-XII intact Psychiatric exam: Present: normal affect, normal mood Skin exam: Present: warm, dry, intact, normal color. Absent: rash Course Vital Signs 12/30/21 12/30/21 15:04 17:13 Temperature 97.8 F 97.8 F Pulse Rate 64 95 Respiratory 16 18 Rate Blood Pressure 145/93 125/81 O2 Sat by Pulse 100 99 Oximetry Medical Decision Making - Medical Decision Making This is a 51-year-old female who presents to the emergency department for right lower quadrant and right flank pain. Lab work reveals leukocytosis and urinalysis is consistent with residual infection. CT scan of the abdomen and pelvis obtained revealing moderately severe hydronphrosis with hydroureter and no obvious calculus. The urine that the patient provided did have obvious debris in the specimen cup and given the associated CT findings, it is very likely that she passed the stone in the emergency department. Her symptoms were adequately controlled. Rx for Keflex provided, advised she begin taking this if her urinary symptoms do not improve in 2-3 days, as she states that she started Bactrim yesterday. Return precautions reviewed in depth, the patient is instructed to return to the emergency department with any new, worsening, or concerning symptoms. Patient verbalized understanding. This case was discussed in detail with the attending ED physician. Presentation, findings, and treatment plan discussed in detail as well. - Lab Data Result diagrams: 12/30/21 15:24 12/30/21 15:24 Lab Results 12/30/21 12/30/21 12/30/21 Range/Units 15:24 15:24 15:24 WBC 11.5 H (3.8-10.6) k/uL RBC 4.28 (3.80-5.40) m/uL Hgb 13.9 (11.4-16.0) gm/dL Hct 40.6 (34.0-46.0) % MCV 94.8 (80.0-100.0) fL MCH 32.4 (25.0-35.0) pg MCHC 34.2 (31.0-37.0) g/dL RDW 13.3 (11.5-15.5) % Plt Count 286 (150-450) k/uL MPV 7.5 Neutrophils % 62 % Lymphocytes % 28 % Monocytes % 6 % Eosinophils % 2 % Basophils % 1 % Neutrophils # 7.1 (1.3-7.7) k/uL Lymphocytes # 3.2 (1.0-4.8) k/uL Monocytes # 0.7 (0-1.0) k/uL Eosinophils # 0.2 (0-0.7) k/uL Basophils # 0.1 (0-0.2) k/uL Sodium 140 (137-145) mmol/L Potassium 3.8 (3.5-5.1) mmol/L Chloride 101 (98-107) mmol/L Carbon Dioxide 25 (22-30) mmol/L Anion Gap 14 mmol/L BUN 29 H (7-17) mg/dL Creatinine 1.12 H (0.52-1.04) mg/dL Est GFR (CKD-EPI)AfAm 65 (>60 ml/min/1.73 sqM) Est GFR (CKD-EPI)NonAf 57 (>60 ml/min/1.73 sqM) Glucose 85 (74-99) mg/dL Calcium 9.6 (8.4-10.2) mg/dL Total Bilirubin 0.4 (0.2-1.3) mg/dL AST 22 (14-36) U/L ALT 22 (4-34) U/L Alkaline Phosphatase 126 (38-126) U/L Total Protein 7.2 (6.3-8.2) g/dL Albumin 4.4 (3.5-5.0) g/dL Urine Color Yellow Urine Appearance Cloudy H (Clear) Urine pH 5.5 (5.0-8.0) Ur Specific [place] 1.019 (1.001-1.035) Urine Protein Trace H (Negative) Urine Glucose (UA) Negative (Negative) Urine Ketones Negative (Negative) Urine Blood Moderate H (Negative) Urine Nitrite Negative (Negative) Urine Bilirubin Negative (Negative) Urine Urobilinogen <2.0 (<2.0) mg/dL Ur Leukocyte Esterase Moderate H (Negative) Urine RBC 64 H (0-5) /hpf Urine WBC 51 H (0-5) /hpf Ur Squamous Epith Cells 2 (0-4) /hpf Urine Mucus Occasional H (None) /hpf - Radiology Data Radiology results: report reviewed, image reviewed Disposition Clinical Impression: Hydronephrosis, right, Urinary tract infection Disposition: HOME SELF-CARE Instructions (If sedation given, give patient instructions): Urinary Tract Infection in Women (ED), Hydronephrosis (ED) Additional Instructions: Return to the emergency department with any new, worsening, or concerning symptoms. Continue to take her Toradol with Tylenol as needed for pain relief. Begin taking the Keflex if your symptoms do not improve within a couple of days or you experience UTI like symptoms. Follow-up with Dr. Garcia as instructed. Prescriptions: Cephalexin [Keflex] 500 mg PO Q8HR 7 Days #21 cap Is patient prescribed a controlled substance at d/c from ED?: No Referrals: Chivo Keating DO [Primary Care Provider] - 1-2 days
[2021-12-30 17:16] VITALS: BP 125/81; PULSE 95; RESP 18
== END 2021-12-30 17:17 | disposition home or self-care (01) ==
LOC: EC 14:53
DX: N13.30 Unspecified hydronephrosis (principal); N39.0 Urinary tract infection, site not specified; D72.829 Elevated white blood cell count, unspecified; I10 Essential (primary) hypertension; E78.5 Hyperlipidemia, unspecified; Z87.891 Personal history of nicotine dependence; Z87.442 Personal history of urinary calculi; Z88.0 Allergy status to penicillin; Z91.011 Allergy to milk products; Z91.040 Latex allergy status; Z91.048 Other nonmedicinal substance allergy status
CPT/HCPCS: 36415; 80053; 85025; 81001; 87086; 74176; 99284; 96374; 96361; J1885

== ENCOUNTER → 2022-01-08 | Outpatient (CLI) | payer BC, MEDICARE ==
[2022-01-08 10:05] VITALS: BP 131/84; PULSE 90; RESP 18; TEMP 98.1
--- NOTE | 2022-01-08 15:41 | P.PAINPG ---
PQRS Measure Charge Sheet Comment: A 51 yr old female w child at side with a history of severe and chronic neck pain secondary to cervical degenerative disc diseases and spondylosis with facet arthropathy without myelopathy presents today for evaluation s/p L RFA C2-C3, C3-C4. Pt states she experienced 100% pain relief s/p procedure. Pain level is currently at 5/10 in intensity, constant, localized in mid to lower R cervical spine, burning in character w shooting towards the R shoulder. Pain has unknown provocative factors. Pain is alleviated with hat, ice, meds (Naproxen), repositioning and rest. Interventional pain procedures completed include L RFA C2-C3, C3-C4. Patient is currently on naproxen Patient denies any side effects of the medication(s), denies excessive drowsiness or sleepiness, denies suicidal ideation and reports that the current pain medication is helping to control the pain and improve activities of daily living. Patient denies any motor or sensory deficits. Patient denies any fever or night sweats, denies any change in the bowel movements or urination. Physical Examination: -Constitutional: Cooperative. Not in acute distress . - Neurologic: Cranial nerve II to XII intact. No focal neurological deficits. - Psychatric: Alert & oriented x 3. Matching mood & appropriate affect. Judgment and insight intact. - Musculoskeletal: Cervical spine: Muscle bulk/ tone/ strength in the bilateral upper extremities normal Vertebral body tenderness to palpation over R paraspinal TTP and R superior aspect of Trapezius TTP Spurling test positive Distraction test positive Facet loading test positive Thoracic spine Muscle bulk / tone/ strength in the bilateral paraspinal muscles normal Vertebral body tender to palpation over Facet loading test positive Lumbar spine: Motor bulk/ tone/ strength lower extremities , thigh and legs : 5/5 Deep tendon reflexes : Normal Knee Jerk. Normal Ankle Jerk . Vertebral body tenderness to palpation over Lumbar Facet Loading Test positive Straight Leg Raise: positive at 30 degrees right side/ left side Gaenslen's Test positive Sacral spine : Severe tenderness over the Sacroiliac joint: right side / left side Range of motion: Flexion of the lumbar spine <60 degrees Range of motion: Extension of the lumbar spine <20 degrees Gaenslen's Test positive Xu's Test positive Brody test: positive right side / left side Thigh Thrust Test Sacral Thrust Test Assessment and plan: Chronic neck pain secondary to cervical degenerative disc disease , spondylosis with facet arthropathy without myelopathy Recommendation of R TPIs of C4-T3. May need a series, up to every 2-3 mo , for optimal pain relief. Risks, benefits of procedure discussed and pt verbalized understanding. Denies anticoagulant use or medical history of diabetes. Protocol for discontinuation/ continuation of meds ana maría procedure discussed. All patient questions answered I have spent less than 30 minutes on patient care today. Dr Rico was available by phone for the evaluation of this patient. The time was used to review the medical records including relevant urine studies and Prescription history (MAPs), review of the available imaging, evaluation and examination of the patient, coordination of care with the medical staff and if applicable referring physicians, as well as creation of the medical record PQRS Narrative: Smoking Status Former smoker Hx Alcohol Use (MH) No Home Medications: Ambulatory Orders hydroCHLOROthiazide 12.5 mg PO DAILY 09/06/21 Losartan Potassium 50 mg PO DAILY 11/02/21 Naproxen Sodium [Aleve] 220 mg PO BID PRN 11/02/21 Ketorolac [Toradol] 10 mg PO Q6HR PRN #10 tab 12/28/21 Cephalexin [Keflex] 500 mg PO Q8HR 7 Days #21 cap 12/30/21 Controlled Substance Measures - Controlled Substance Measures Is patient prescribed a controlled substance at discharge?: No
== END | disposition home or self-care (01) ==
LOC: PNWHC3 09:29
PROVIDERS: ATTEND Specialist
DX: M50.30 Other cervical disc degeneration, unspecified cervical region (principal); M47.892 Other spondylosis, cervical region; M46.96 Unspecified inflammatory spondylopathy, lumbar region
CPT/HCPCS: 99211

== ENCOUNTER 2022-02-15 08:20 | Day surgery (SDC) | payer BC, MEDICARE ==
[~2022-02-15 08:20] MED LIST changes: -CIPROFLOXACIN/DEXTROSE PMX 400 MG in DEXTROSE/WATER 1 200ML.BAG IVPB PRN
[2022-02-15] MEDS ORDERED: LACTATED RINGERS 1,000 ML IV SCH (08:30)
[2022-02-15] MEDS ORDERED: LIDOCAINE 1% (10MG/ML) FOR IV START INTRADERMA PRN (08:30)
[2022-02-15 08:40] VITALS: TEMP 97.7
[2022-02-15] MEDS ORDERED: ROPIVACAINE 5 MG/ML 20 ML AMPULE ONE (08:50)
[2022-02-15] MEDS ORDERED: TRIAMCINOLONE ACETONIDE 40 MG/ML 1 ML VIAL ONE (08:50)
--- NOTE | 2022-02-15 09:03 | P.PCN ---
Date of Procedure: 02/15/22 Description of Procedure: Pre and postop diagnosis: Myofascial pain syndrome Procedure: Trigger point injections X 11 Muscle group X bilateral cervical paraspinal, bilateral trapezius, bilateral rhomboids muscle Surgeon: Demario Vazquez Anesthesia: None Complications: None Estimated blood loss: None Specimen removed: None Procedure indications: Patient had a history of myofascial pain syndrome. Patient tried conservative therapy. Came here for intervention procedure for better pain relief. Procedure description: Patient was seen and identified in the holding area risk benefits competitions alternative discussed with the patient. Patient agreed to proceed for the procedure signed the consent. Patient taken to the procedure area. Timeout was completed. A total number of 11 - trigger point area was marked with a sterile marker. After ChloraPrep used to clean the area. Critical pause was taken. Using 25-gauge 1-1/2 [address] needle b[address] half way. Needle entered in each market site 2 mL of block solution injected at each level. The block solution containing 21 ml of 0.5% preservative-free ropivacaine with Kenlog 40 MG. Needle removed intact skin cleaned and Band-Aid applied. Patient tolerated the procedure well. Disposition: Patient discharge home after meeting the discharge criteria from the recovery. Patient scheduled to follow up with the pain clinic in 4 weeks for follow-up visit.
[2022-02-15 09:21] VITALS: BP 119/75; PULSE 71; RESP 16
== END 2022-02-15 09:31 | disposition home or self-care (01) ==
LOC: ORPAIN 08:20
DX: M79.18 Myalgia, other site (principal); R00.2 Palpitations; N20.0 Calculus of kidney; Z79.899 Other long term (current) drug therapy; Z88.1 Allergy status to other antibiotic agents; Z98.890 Other specified postprocedural states; Z91.040 Latex allergy status
CPT/HCPCS: 20553; J3301; J2795

== ENCOUNTER → 2022-03-15 | Outpatient (CLI) | payer BC, MEDICARE ==
[2022-03-15 10:23] VITALS: BP 167/83; PULSE 91; RESP 18; TEMP 98
--- NOTE | 2022-03-15 14:43 | P.PAINPG ---
PQRS Measure Charge Sheet Comment: A 51 yr old female with a history of severe and chronic low back pain secondary to lumbar DDD and spondylosis with facet arthropathy without myelopathy presents today for evaluation s/p BL cervical TPIs. Pt states she experienced 90% pain relief x 3 wks s/p procedure. Pain level is currently at 6 /10 in intensity, constant, localized in the R upper - mid cervical spine, sharp in character w shooting towards the R head and shoulder. Pain is provoked by rotation. Pain is alleviated with medication (Aleve, Flexeril), ice, heat, injections, repositioning and rest. Interventional pain procedures completed include BL Cervical TPIs Patient is currently on Aleve, Flexeril Patient denies any side effects of the medication(s), denies excessive drowsiness or sleepiness, denies suicidal ideation and reports that the current pain medication is helping to control the pain and improve activities of daily living. Patient denies any motor or sensory deficits. Patient denies any fever or night sweats, denies any change in the bowel movements or urination. Physical Examination: -Constitutional: Cooperative. Not in acute distress . - Neurologic: Cranial nerve II to XII intact. No focal neurological deficits. - Psychatric: Alert & oriented x 3. Matching mood & appropriate affect. Judgment and insight intact. - Musculoskeletal: Cervical spine: Muscle bulk/ tone/ strength in the bilateral upper extremities normal Vertebral body tenderness to palpation over Spurling test positive on R Distraction test positive Facet loading test positive Thoracic spine Muscle bulk / tone/ strength in the bilateral paraspinal muscles normal Vertebral body tender to palpation over Facet loading test positive Lumbar spine: Motor bulk/ tone/ strength lower extremities , thigh and legs : 5/5 Deep tendon reflexes : Normal Knee Jerk. Normal Ankle Jerk . Vertebral body tenderness to palpation over Lumbar Facet Loading Test positive Straight Leg Raise: positive at 30 degrees right side/ left side Gaenslen's Test positive Sacral spine : Severe tenderness over the Sacroiliac joint: right side / left side Range of motion: Flexion of the lumbar spine <60 degrees Range of motion: Extension of the lumbar spine <20 degrees Gaenslen's Test positive Brody test: positive right side / left side Thigh Thrust Test Sacral Thrust Test Assessment and plan: Chronic low back pain secondary to lumbar degenerative disc disease, spondylosis with facet arthropathy without myelopathy Recommendation of R TPIs C2-C7 #2. May need a series, up to every 2-3 mo, for optimal pain relief. Risks, benefits of procedure discussed and pt verbalized understanding. Denies anticoagulant use or medical history of diabetes. All patient questions answered MAPS reviewed and it was appropriate. Prescription for Diclofenac gel apply BID prn pain disp 1 tube w 1 RF I have spent less than 30 minutes on patient care today. Dr Rico was available by phone for the evaluation of this patient. The time was used to review the medical records including relevant urine studies and Prescription history (MAPs), review of the available imaging, evaluation and examination of the patient, coordination of care with the medical staff and if applicable referring physicians, as well as creation of the medical record PQRS Narrative: Smoking Status Former smoker Hx Alcohol Use (MH) No Home Medications: Ambulatory Orders hydroCHLOROthiazide 12.5 mg PO DAILY 09/06/21 Losartan Potassium 50 mg PO DAILY 11/02/21 Naproxen Sodium [Aleve] 220 mg PO BID PRN 11/02/21 Ketorolac [Toradol] 10 mg PO Q6HR PRN #10 tab 12/28/21 Mirabegron [Myrbetriq] 25 mg PO DAILY 02/09/22 Controlled Substance Measures - Controlled Substance Measures Is patient prescribed a controlled substance at discharge?: No
== END ==
LOC: PNWHC3 09:30
PROVIDERS: ATTEND Specialist
DX: M47.816 Spondylosis without myelopathy or radiculopathy, lumbar region (principal); M51.36 Other intervertebral disc degeneration, lumbar region; G89.29 Other chronic pain; Z91.011 Allergy to milk products; Z88.1 Allergy status to other antibiotic agents; Z91.048 Other nonmedicinal substance allergy status; Z91.040 Latex allergy status; Z87.891 Personal history of nicotine dependence
CPT/HCPCS: 99211

== ENCOUNTER → 2022-04-30 | Outpatient (CLI) | payer BC, MEDICARE | END | disposition home or self-care (01) | LOC: LABWHC1 12:09 | PROVIDERS: ATTEND Urology | DX: N20.0 Calculus of kidney (principal) | CPT/HCPCS: 36415; 82310; 83970 ==

== ENCOUNTER 2022-05-08 09:28 | Day surgery (SDC) | payer BC, MEDICARE ==
[2022-04-16 14:06] VITALS: BMI 29.9
[~2022-05-08 09:28] MED LIST changes: +LIDOCAINE 1% (10MG/ML) FOR IV START INTRADERMA PRN
[2022-05-08 09:51] VITALS: RESP 16; TEMP 97
[2022-05-08] MEDS ORDERED: methylPREDNISolone ACETATE 40 MG/ML 1 ML VIAL ONE (09:54)
[2022-05-08] MEDS ORDERED: ROPIVACAINE 5 MG/ML 20 ML AMPULE ONE (09:54)
--- NOTE | 2022-05-08 10:11 | P.PCN ---
Date of Procedure: 05/08/22 Procedure(s) Performed: Procedure= trigger point injections right-sided cervical paraspinal muscles total of 6 trigger points injected Preoperative diagnosis= 1-myofascial joshua syndrom cervical paraspinal muscles. 2-cervical spondylosis with cervical facet arthropathy Postoperative diagnosis=Same as preop Diagnosis . Complication = none Condition= stable Anesthesia= none Indication for the procedure= patient complaining of sever neck pain , examination was positive for multiple trigger point identified in the right side cervical paraspinal muscles and she is here to have trigger point injections Description of the procedure= procedure risk and benefits discussed with the patient, including but not limited, risk of infection and bleeding, and ALLERGIC reaction to the medication and not complete pain relief and patient agreed with the preceding patient taken to the operating room, placed in sitting position or standard monitors applied to the patient then after induction of anesthesia back prepped with chlorhexidine 3 times , and after that each of the telephone that was identified in the preop holding area each one of them injection with the 2 mL of the mixture of ropivacaine 0.5% 12 ml mixed with 40 mg of Depo- Medrol, and each trigger point injected with 2 mL of the mixture is using 25- gauge needle, injections done after negative aspiration under was no paresthesia during the injection, total of 6 trigger point injected on the right side cervical paraspinal muscles patient tolerated the procedure well without any complications, and she will follow up in the pain clinic in a few weeks for evaluation
[2022-05-08 10:31] VITALS: BP 143/83; PULSE 71
== END 2022-05-08 10:37 | disposition home or self-care (01) ==
LOC: ORPAIN 09:28
PROVIDERS: ATTEND Specialist
DX: M47.812 Spondylosis without myelopathy or radiculopathy, cervical region (principal); M79.18 Myalgia, other site; Z91.011 Allergy to milk products; Z88.0 Allergy status to penicillin
CPT/HCPCS: 20552; J1030; J2795

== ENCOUNTER 2022-07-17 07:56 | Day surgery (SDC) | payer BC, MEDICARE ==
[2022-06-22 08:53] VITALS: BMI 29.2
[2022-07-17 08:08] VITALS: TEMP 97.6
[2022-07-17] MEDS ORDERED: methylPREDNISolone ACETATE 40 MG/ML 1 ML VIAL ONE (08:30)
[2022-07-17] MEDS ORDERED: ROPIVACAINE 5 MG/ML 20 ML AMPULE ONE (08:30)
[2022-07-17] MEDS ORDERED: IOPAMIDOL M200 10 ML VIAL ONE (08:30)
--- NOTE | 2022-07-17 08:42 | P.PCN ---
Date of Procedure: 07/17/22 Preoperative Diagnosis: Suprascapular neuritis, right shoulder pain Procedure(s) Performed: Right suprascapular nerve block Description of Procedure: Procedure performed is right suprascapular nerve block Diagnosis is suprascapular neuritis and right shoulder pain Postoperative diagnosis the same Sedation was used. Local only The patient was seen in the preoperative area and consent was signed. The patient brought to the OR and placed in the prone position. The area was cleansed with chlorhexidine, the area was draped. X-ray was used to identify the scapular spine. Notch of the scapular spine is 525-gauge 1/2 inch needle. Contrast dye was used to watch spread along the area. After negative aspiration. 4 mL of 0.5% ropivacaine along with 40 mg of Depo-Medrol was used in the area. The needle was removed intact. Cleansed and a bandage was placed. Patient will follow up in the clinic in 4-6 weeks as needed
[2022-07-17 08:45] VITALS: BP 124/73; PULSE 64; RESP 16
--- NOTE | 2022-07-17 08:59 | FL ---
Fluoroscopy History: RT SUPRASCAPULAR INJ RT SUPRASCAPULAR INJ. 4 SEC FL TIME. DAP .[id number]. CY
== END 2022-07-17 08:56 | disposition home or self-care (01) ==
LOC: ORPAIN 07:56
PROVIDERS: ATTEND Hospitalist
DX: G56.82 Other specified mononeuropathies of left upper limb (principal); Z79.899 Other long term (current) drug therapy
CPT/HCPCS: 64418; J1030; Q9966; J2795

== ENCOUNTER → 2022-08-03 | Outpatient (CLI) | payer BC, MEDICARE ==
--- NOTE | 2022-08-03 12:06 | XR ---
EXAMINATION TYPE: XR shoulder complete BILAT DATE OF EXAM: 08/03/2022 COMPARISON: NONE HISTORY: 52-year-old female M25.511, M25.512 Pain bilateral shoulders. TECHNIQUE: 3 views each side FINDINGS: AC joints appear symmetric and intact. Subacromial space is preserved on both sides. No ten dinous or bursal calcifications. There appears to be minimal inferior humeral head spurring on the ri ght. No acute fracture, subluxation, or dislocation. Small delineation to the greater tuberosities on both sides. IMPRESSION: Mild degenerative spurring at the right glenohumeral joint. Otherwise, no acute osseous abnormality s een.
== END | disposition home or self-care (01) ==
LOC: RADXRMAIN 10:20
PROVIDERS: ATTEND Nurse Practitioner Family
DX: M19.011 Primary osteoarthritis, right shoulder (principal)

== ENCOUNTER → 2022-08-15 | Outpatient (CLI) | payer BC, MEDICARE ==
[2022-08-15 13:48] VITALS: BP 130/77; PULSE 76; RESP 18; TEMP 97.3
--- NOTE | 2022-08-15 14:32 | P.PAINPG ---
PQRS Measure Charge Sheet Comment: A 52 yr old female with a history of severe and chronic R shoulder pain secondary to osteoarthritis presents today for evaluation s/p R suprascapular NB. Pt states she experienced 100 % pain relief x 3 wks s/p procedure. Pain level is provoked at 7/10 in intensity, constant, localized in the BL shoulder, sharp in character w/o shooting pain. Pain is provoked by lifting. Pain is alleviated with massage at home, heat, ice, topical and rest. Completed x rays of the BL shoulders 2 weeks ago which were indicative of R osteoarthritis. Interventional pain procedures completed include R Suprascapular NB Patient is currently on DENIES Patient denies any side effects of the medication(s), denies excessive drowsiness or sleepiness, denies suicidal ideation and reports that the current pain medication is helping to control the pain and improve activities of daily living. Patient denies any motor or sensory deficits. Patient denies any fever or night sweats, denies any change in the bowel movements or urination. Physical Examination: -Constitutional: Cooperative. Not in acute distress . - Neurologic: Cranial nerve II to XII intact. No focal neurological deficits. - Psychatric: Alert & oriented x 3. Matching mood & appropriate affect. Judgment and insight intact. - Musculoskeletal: Cervical spine: BL AC joint line TTP, full abduction/ adduction, 5/5 muscle bulk tone and strength Muscle bulk/ tone/ strength in the bilateral upper extremities normal Vertebral body tenderness to palpation over Spurling test positive Distraction test positive Facet loading test positive TTP Thoracic spine Muscle bulk / tone/ strength in the bilateral paraspinal muscles normal Vertebral body tender to palpation over Facet loading test positive TTP Lumbar spine: Motor bulk/ tone/ strength lower extremities , thigh and legs : 5/5 Deep tendon reflexes : Normal Knee Jerk. Normal Ankle Jerk . Vertebral body tenderness to palpation over Lumbar Facet Loading Test positive Straight Leg Raise: positive at 30 degrees right side/ left side Gaenslen's Test positive Sacral spine : Severe tenderness over the Sacroiliac joint: right side / left side Range of motion: Flexion of the lumbar spine <60 degrees Range of motion: Extension of the lumbar spine <20 degrees Gaenslen's Test positive R / L Brody test: positive right side / left side Thigh Thrust Test positive R / L Sacral Thrust Test positive R/ L Imaging: X-rays of the BL shoulders from 08/03/22 reviewed Assessment and plan: Chronic BL shoulder pain secondary to OA Recommendation of BL suprascapular NB. May need a series of injections for optimal pain relief. Risks, benefits of procedure discussed and pt verbalized understanding. Admits to anticoagulant use or medical history of diabetes. Protocol for discontinuation/ continuation of medications ana maría procedure discussed. All questions answered. I have spent less than 30 minutes on patient care today. Dr Rico was available by phone for the evaluation of this patient. The time was used to review the medical records including relevant urine studies and Prescription history (MAPs), review of the available imaging, evaluation and examination of the patient, coordination of care with the medical staff and if applicable referring physicians, as well as creation of the medical record PQRS Narrative: Smoking Status Former smoker Hx Alcohol Use (MH) No Home Medications: Ambulatory Orders hydroCHLOROthiazide 25 mg PO DAILY 09/06/21 Losartan Potassium 50 mg PO DAILY 11/02/21 Naproxen Sodium [Aleve] 220 mg PO BID PRN 11/02/21 Solifenacin Succinate 5 mg PO DAILY 05/04/22 Controlled Substance Measures - Controlled Substance Measures Is patient prescribed a controlled substance at discharge?: No
== END ==
LOC: PNWHC3 10:39
PROVIDERS: ATTEND Specialist
DX: M19.90 Unspecified osteoarthritis, unspecified site (principal); Z87.891 Personal history of nicotine dependence; Z91.011 Allergy to milk products; Z91.040 Latex allergy status; Z91.09 Other allergy status, other than to drugs and biological substances
CPT/HCPCS: 99211

== ENCOUNTER 2022-09-03 20:46 | Emergency (ER) | payer BC, MEDICARE ==
[2022-09-03 21:00] VITALS: TEMP 97.4
[2022-09-03] MEDS ORDERED: SODIUM CHLORIDE 0.9% 1,000 ML IV STA (21:10)
[2022-09-03] MEDS ORDERED: ONDANSETRON 4 MG/2 ML VIAL IVP STA (21:10)
[2022-09-03] MEDS ORDERED: KETOROLAC 15 MG/ML 1 ML VIAL IVP STA (21:10)
--- NOTE | 2022-09-03 21:18 | ED ---
General Adult HPI - General Chief complaint: Abdominal Pain Stated complaint: Kidney Stone Time Seen by Provider: 09/03/22 21:06 Source: patient, RN notes reviewed, old records reviewed Mode of arrival: ambulatory Limitations: no limitations - History of Present Illness Initial comments: 52-year-old nontoxic-appearing female presents with complaints of left flank pain since 4:30 today. Has a history of kidney stones and sees Dr Garcia. Does have nausea no vomiting. States she is also having trouble urinating, is coming out in a trickle. Denies any fevers. -: hour(s) (5) Location: left (flank) Radiation: other (left groin) Severity scale (1-10): 10 Quality: constant Consistency: constant Associated Symptoms: nausea/vomiting (no vomiting) Treatments Prior to Arrival: none - Related Data Home Medications Medication Instructions Recorded Confirmed hydroCHLOROthiazide 25 mg PO DAILY 09/06/21 07/13/22 Losartan Potassium 50 mg PO DAILY 11/02/21 07/13/22 Naproxen Sodium [Aleve] 220 mg PO BID PRN 11/02/21 07/13/22 Solifenacin Succinate 5 mg PO DAILY 05/04/22 07/13/22 Previous Rx's Medication Instructions Recorded Ketorolac [Toradol] 10 mg PO Q8HR #15 tab 09/03/22 Allergies Allergy/AdvReac Type Severity Reaction Status Date / Time milk Allergy Unknown HEADACHES,EAR Verified 09/03/22 21:00 INFECTIONS amoxicillin [Amoxicillin] AdvReac Severe YEAST Verified 09/03/22 21:00 INFECTIONS adhesive tape AdvReac RED SKIN Verified 09/03/22 21:00 latex AdvReac SKIN RED Verified 09/03/22 21:00 WITH TAPES, BANDAIDS, STATES UNSURE OF LATEX ALLERG Review of Systems ROS Statement: Those systems with pertinent positive or pertinent negative responses have been documented in the HPI. ROS Other: All systems not noted in ROS Statement are negative. Past Medical History Past Medical History: CVA/TIA, GERD/Reflux, Hyperlipidemia, Hypertension, Memory Impairment, Musculoskeletal Disorder, Osteoarthritis (OA) Additional Past Medical History / Comment(s): Migraines. Kidney stones. Chronic constipation, occ diarrhea. Cervical DDD, hx fusions x2. CVA 09/30/14, sl memory changes. History of Any Multi-Drug Resistant Organisms: None Reported Past Surgical History: Ear Surgery, Hysterectomy, Orthopedic Surgery, Tubal Ligation Additional Past Surgical History / Comment(s): BMT. Cervical Fusions X2, last 09/30/14. Lithotripsy x4. Pain clinic - Last 08/03/14. Colonoscopy. Rt shoulder surg. kidney stone removal Past Anesthesia/Blood Transfusion Reactions: Previous Problems w/ Anesthesia, Family History of Problems w/ Anesthesia, Motion Sickness, Postoperative Nausea & Vomiting (PONV) Additional Past Anesthesia/Blood Transfusion Reaction / Comment(s): Sister, father have PONV. Patient states had a stroke after 2nd cervical surgery 09/30/14. Past Psychological History: No Psychological Hx Reported Smoking Status: Former smoker Past Alcohol Use History: None Reported Past Drug Use History: None Reported - Past Family History Mother Family Medical History: Cancer Father Family Medical History: CVA/TIA Additional Family Medical History / Comment(s): "Poss blood clot in neck," PRIOR TO STROKE, TOLD "IT WAS BLOCKED." "Poss blood clot in back." General Exam Limitations: no limitations General appearance: alert, in no apparent distress Head exam: Present: atraumatic Eye exam: Present: normal appearance. Absent: scleral icterus, conjunctival injection, periorbital swelling, periorbital tenderness Neck exam: Present: full ROM. Absent: tenderness Respiratory exam: Absent: respiratory distress, accessory muscle use Cardiovascular Exam: Present: regular rate Extremities exam: Present: full ROM, normal capillary refill. Absent: tenderness Back exam: Present: full ROM, CVA tenderness (L). Absent: tenderness, rash noted Neurological exam: Present: alert, oriented X3, normal gait Psychiatric exam: Present: normal affect, normal mood Skin exam: Present: warm, dry, normal color. Absent: cyanosis, diaphoretic, petechiae, pallor Course Vital Signs 09/03/22 09/03/22 09/03/22 20:58 21:32 22:54 Temperature 97.4 F L Pulse Rate 97 105 H 103 H Respiratory 18 24 20 Rate Blood Pressure 173/100 160/102 160/92 O2 Sat by Pulse 99 98 98 Oximetry - Reevaluation(s) Reevaluation #1: 09/03/22 22:37 Patient states pain is tolerable, down to 5 out of 10. Nausea has resolved. Awaiting CT report. Time: 22:37 Reevaluation #2: 09/03/22 23:03 Patient states that her pain has resolved now. Time: 23:03 Medical Decision Making - Medical Decision Making Was pt. sent in by a medical professional or institution (, [facility], [employer] UP OPERATOR [employer], urgent care, hospital, or intermediate...) When possible be specific @ -No Did you speak to anyone other than the patient for history (EMS, parent, family, police, friend...)? What history was obtained from this source @ -No Did you review nursing and triage notes (agree or disagree)? Why? @ -I reviewed and agree with nursing and triage notes Were old charts reviewed (outside hosp., previous admission, EMS record, old EKG, old radiological studies, urgent care reports/EKG's, intermediate records)? Report findings @ -CT abdomen performed 12/30/2021 Differential Diagnosis (chest pain, altered mental status, abdominal pain women, abdominal pain men, vaginal bleeding, weakness, fever, dyspnea, syncope, headache, dizziness, GI bleed, back pain, seizure, CVA, palpatations, mental health, musculoskeletal)? @ -Hydronephrosis, pyelonephritis, kidney stone EKG interpreted by me (3pts min.). @ -n/a X-rays interpreted by me (1pt min.). @ -yes X-ray interpreted by me shows no evidence of obstruction. CT interpreted by me (1pt min.). @ -yes CT abdomen and pelvis shows a left hydronephrosis with a approximately 4 mm distal ureter stone with multiple stones within the right kidney. U/S interpreted by me (1pt. min.). @ -None done What testing was considered but not performed or refused? (CT, X-rays, U/S, labs)? Why? @ -None What meds were considered but not given or refused? Why? @ -Antibiotics were considered leukocytosis with leukocytes and bacteria in urine however urinalysis was sent for culture as this may be related to kidney stone rather than infection. Did you discuss the management of the patient with other professionals (professionals i.e. RAMYA Delcid, [employer] OPERATOR [employer], lab, RT, psych nurse, social welfare research worker, rotary drier, teacher, operations officer afloat, catalytic case operator)? Give summary @ -No Was smoking cessation discussed for >3mins.? @ -No Was critical care preformed (if so, how long)? @ -No Were there social determinants of health that impacted care today? How? (Homelessness, low income, unemployed, alcoholism, drug addiction, transportation, low edu. Level, literacy, decrease access to med. care, detention, rehab)? @ -No Was there de-escalation of care discussed even if they declined (Discuss DNR or withdrawal of care, Hospice)? DNR status @ -No What co-morbidities impacted this encounter? (DM, HTN, Smoking, COPD, CAD, Cancer, CVA, ARF, Chemo, Hep., AIDS, mental health diagnosis, sleep apnea, morbid obesity)? @ -GERD, hypertension, kidney stones Was patient admitted / discharged? Hospital course, mention meds given and route, prescriptions, significant lab abnormalities, going to OR and other pertinent info. @ -Discharged 52-year-old nontoxic-appearing female presents with complaints of left flank pain since 4:30 today. Has a history of kidney stones and sees Dr Garcia. Does have nausea no vomiting. States she is also having trouble urinating, is coming out in a trickle. Denies any fevers. CBC shows white blood cell count of 12.6. BUN of 31 creatinine 1.35. No evidence of lactic acidosis. Patient was given Toradol, IV fluids and Dilaudid for her pain and zofran for her nausea. X-ray interpreted by me shows no evidence of obstruction. CT abdomen and pelvis shows a left hydronephrosis with a approximately 4 mm distal ureter stone with multiple stones within the right kidney. Radiologist interpretation CT abdomen moderate left hydronephrosis with a 5.4 x 4.7 mm urinary calculus left distal ureter. Right nephrolithiasis. Findings concerning for colitis of the descending and sigmoid colon which may be infectious or inflammatory etiology. Secondary mesenteric adenitis. Hepatic steatosis. On exam patient's abdomen is soft and nontender. Right flank pain and right groin pain upon arrival. Improved after multiple doses of Dilaudid and Toradol. Patient up ambulating to the bathroom with a steady gait. Patient states that she is feeling better and thinks she can be discharged home. She was given a prescription for Toradol and a take-home pack of Zofran for nausea . She was encouraged to return to the emergency room with any new or concerning symptoms including increased pain and difficulty in urinating or persistent nausea vomiting. Instructed also to follow up with her urologist. She is agreeable to this plan of care. Discharged home with family ambulatory with steady gait. Case discussed with Dr. Rodas Undiagnosed new problem with uncertain prognosis? @ -No Drug Therapy requiring intensive monitoring for toxicity (Heparin, Nitro, Insulin, Cardizem)? @ -No Were any procedures done? @ -No Diagnosis/symptom? @ -Kidney stone Acute, or Chronic, or Acute on Chronic? @ -Acute Uncomplicated (without systemic symptoms) or Complicated (systemic symptoms)? @ -Uncomplicated Side effects of treatment? @ -No Exacerbation, Progression, or Severe Exacerbation? @ -No Poses a threat to life or bodily function? How? (Chest pain, [place], [place], pneumonia, PE, COPD, DKA, ARF, appy, cholecystitis, CVA, Diverticulitis, Homicidal, Suicidal, threat to staff... and all critical care pts) @ -No - Lab Data Result diagrams: 09/03/22 21:09 09/03/22 21:09 Lab Results 09/03/22 09/03/22 09/03/22 Range/Units 21:09 21:09 21:09 WBC 12.6 H (3.8-10.6) k/uL RBC 4.25 (3.80-5.40) m/uL Hgb 13.1 (11.4-16.0) gm/dL Hct 39.3 (34.0-46.0) % MCV 92.6 (80.0-100.0) fL MCH 30.9 (25.0-35.0) pg MCHC 33.4 (31.0-37.0) g/dL RDW 13.1 (11.5-15.5) % Plt Count 366 (150-450) k/uL MPV 7.2 Neutrophils % 67 % Lymphocytes % 22 % Monocytes % 6 % Eosinophils % 2 % Basophils % 1 % Neutrophils # 8.5 H (1.3-7.7) k/uL Lymphocytes # 2.8 (1.0-4.8) k/uL Monocytes # 0.8 (0-1.0) k/uL Eosinophils # 0.2 (0-0.7) k/uL Basophils # 0.1 (0-0.2) k/uL Sodium 142 (137-145) mmol/L Potassium 3.7 (3.5-5.1) mmol/L Chloride 105 (98-107) mmol/L Carbon Dioxide 27 (22-30) mmol/L Anion Gap 10 mmol/L BUN 31 H (7-17) mg/dL Creatinine 1.35 H (0.52-1.04) mg/dL Est GFR (CKD-EPI)AfAm 52 (>60 ml/min/1.73 sqM) Est GFR (CKD-EPI)NonAf 45 (>60 ml/min/1.73 sqM) Glucose 145 H (74-99) mg/dL Plasma Lactic Acid Ozzie 1.1 (0.7-2.0) mmol/L Calcium 9.8 (8.4-10.2) mg/dL Total Bilirubin 0.3 (0.2-1.3) mg/dL AST 31 (14-36) U/L ALT 30 (4-34) U/L Alkaline Phosphatase 121 (38-126) U/L Total Protein 7.7 (6.3-8.2) g/dL Albumin 4.4 (3.5-5.0) g/dL Urine Color Urine Appearance (Clear) Urine pH (5.0-8.0) Ur Specific Roundup (1.001-1.035) Urine Protein (Negative) Urine Glucose (UA) (Negative) Urine Ketones (Negative) Urine Blood (Negative) Urine Nitrite (Negative) Urine Bilirubin (Negative) Urine Urobilinogen (<2.0) mg/dL Ur Leukocyte Esterase (Negative) Urine RBC (0-5) /hpf Urine WBC (0-5) /hpf Ur Squamous Epith Cells (0-4) /hpf Urine Bacteria (None) /hpf Urine Mucus (None) /hpf 09/03/22 Range/Units 23:14 WBC (3.8-10.6) k/uL RBC (3.80-5.40) m/uL Hgb (11.4-16.0) gm/dL Hct (34.0-46.0) % MCV (80.0-100.0) fL MCH (25.0-35.0) pg MCHC (31.0-37.0) g/dL RDW (11.5-15.5) % Plt Count (150-450) k/uL MPV Neutrophils % % Lymphocytes % % Monocytes % % Eosinophils % % Basophils % % Neutrophils # (1.3-7.7) k/uL Lymphocytes # (1.0-4.8) k/uL Monocytes # (0-1.0) k/uL Eosinophils # (0-0.7) k/uL Basophils # (0-0.2) k/uL Sodium (137-145) mmol/L Potassium (3.5-5.1) mmol/L Chloride (98-107) mmol/L Carbon Dioxide (22-30) mmol/L Anion Gap mmol/L BUN (7-17) mg/dL Creatinine (0.52-1.04) mg/dL Est GFR (CKD-EPI)AfAm (>60 ml/min/1.73 sqM) Est GFR (CKD-EPI)NonAf (>60 ml/min/1.73 sqM) Glucose (74-99) mg/dL Plasma Lactic Acid Ozzie (0.7-2.0) mmol/L Calcium (8.4-10.2) mg/dL Total Bilirubin (0.2-1.3) mg/dL AST (14-36) U/L ALT (4-34) U/L Alkaline Phosphatase (38-126) U/L Total Protein (6.3-8.2) g/dL Albumin (3.5-5.0) g/dL Urine Color Yellow Urine Appearance Cloudy H (Clear) Urine pH 5.5 (5.0-8.0) Ur Specific Roundup 1.022 (1.001-1.035) Urine Protein 1+ H (Negative) Urine Glucose (UA) Negative (Negative) Urine Ketones Negative (Negative) Urine Blood Large H (Negative) Urine Nitrite Negative (Negative) Urine Bilirubin Negative (Negative) Urine Urobilinogen <2.0 (<2.0) mg/dL Ur Leukocyte Esterase Small H (Negative) Urine RBC 129 H (0-5) /hpf Urine WBC 28 H (0-5) /hpf Ur Squamous Epith Cells 10 H (0-4) /hpf Urine Bacteria Rare H (None) /hpf Urine Mucus Many H (None) /hpf Disposition Clinical Impression: Hepatic steatosis, Hydronephrosis of right kidney, Right nephrolithiasis Disposition: HOME SELF-CARE Condition: Good Instructions (If sedation given, give patient instructions): Kidney Stones (ED), Non-Alcoholic Fatty Liver Disease (ED) Additional Instructions: Increase your fluid intake. Toradol as prescribed for pain and discomfort. You can also use Tylenol. Do not take Motrin or Aleve while taking Toradol. Follow-up with urology this week. Return to the emergency room with any new or concerning symptoms. Prescriptions: Ketorolac [Toradol] 10 mg PO Q8HR #15 tab Is patient prescribed a controlled substance at d/c from ED?: No Referrals: Chivo Keating DO [Primary Care Provider] - 1-2 days Dale Mason MD [STAFF PHYSICIAN] - 1-2 days Time of Disposition: 00:07
[2022-09-03] MEDS ORDERED: HYDROmorphone 0.5 MG/0.5 ML SYRINGE IVP STA ×2 (21:26→22:36)
[2022-09-03 21:36] LABS: Basophils # (A) 0.1 k/uL (0-0.2); Basophils % (A) 1 %; Eosinophils # (A) 0.2 k/uL (0-0.7); Eosinophils % (A) 2 %; HCT 39.3 % (34.0-46.0); HGB 13.1 gm/dL (11.4-16.0); Lymphocytes # (A) 2.8 k/uL (1.0-4.8); Lymphocytes % (A) 22 %; MCH 30.9 pg (25.0-35.0); MCHC 33.4 g/dL (31.0-37.0); MCV 92.6 fL (80.0-100.0); Mean Platelet Volume 7.2; Monocytes # (A) 0.8 k/uL (0-1.0); Monocytes % (A) 6 %; Neutrophils # (A) 8.5 k/uL (1.3-7.7); Neutrophils % (A) 67 %; Platelet Count 366 k/uL (150-450); RBC 4.25 m/uL (3.80-5.40); RDW 13.1 % (11.5-15.5); WBC 12.6 k/uL (3.8-10.6)
[2022-09-03 22:00] LABS: Albumin 4.4 g/dL (3.5-5.0); Calcium 9.8 mg/dL (8.4-10.2); Potassium 3.7 mmol/L (3.5-5.1); Total Bilirubin 0.3 mg/dL (0.2-1.3); Total Protein 7.7 g/dL (6.3-8.2)
--- NOTE | 2022-09-03 22:45 | CT ---
EXAM: CT Abdomen and Pelvis Without Intravenous Contrast CLINICAL HISTORY: ITS.REASON CT Reason: flank pain, hx stone TECHNIQUE: Axial computed tomography images of the abdomen and pelvis without intravenous contrast. CTDI is 13.1 mGy and DLP is 866.9 mGy-cm. This CT exam was performed using one or more of the following dose reduction techniques: automated exposure control, adjustment of the mA and/or kV according to patient size, and/or use of iterative reconstruction technique. COMPARISON: Comparison made to prior CT scan of the abdomen pelvis from December 30, 2021. FINDINGS: Lung bases: Unremarkable. No mass. No consolidation. ABDOMEN: Liver: Hepatic steatosis. Gallbladder and bile ducts: Unremarkable. No calcified stones. No ductal dilation. Pancreas: Unremarkable. No ductal dilation. Spleen: Unremarkable. No splenomegaly. Adrenals: Unremarkable. No mass. Kidneys and ureters: Moderate left hydronephrosis with a 5.4 x 4.7 mm urinary calculus in the distal left ureter. Right nephrolithiasis. Stomach and bowel: There is thickening and edema of the descending and sigmoid colon wall with subtle inflammation of the surrounding mesenteric fat. PELVIS: Appendix: No findings to suggest acute appendicitis. Bladder: Unremarkable. No stones. Reproductive: Unremarkable as visualized. ABDOMEN and PELVIS: Intraperitoneal space: Unremarkable. No free air. No significant fluid collection. Bones/joints: No acute fracture. No dislocation. Soft tissues: Unremarkable. Vasculature: Unremarkable. No abdominal aortic aneurysm. Lymph nodes: There are prominent lymph nodes scattered throughout the mesenteric fat. IMPRESSION: Moderate left hydronephrosis with a 5.4 x 4.7 mm urinary calculus in the distal left ureter. Findings concern for colitis of the descending and sigmoid colon, which may be of infectious or inflammatory etiologies. Secondary mesenteric adenitis. Right nephrolithiasis. Hepatic steatosis.
[2022-09-03 22:55] VITALS: BP 160/92; PULSE 103; RESP 20
--- NOTE | 2022-09-03 23:07 | XR ---
EXAM: XR Abdomen, 1 View CLINICAL HISTORY: ITS.REASON XR Reason: abdominal pain TECHNIQUE: Frontal supine view of the abdomen/pelvis. COMPARISON: No relevant prior studies available. FINDINGS: Lower thorax: The lung bases are clear. Gastrointestinal tract: Nonobstructed bowel gas pattern. Bones/joints: Degenerative changes of the spine. IMPRESSION: Nonobstructed bowel gas pattern.
[2022-09-03 23:40] LABS: Appearance,Urine Cloudy (Clear); Bacteria,Urine Rare /hpf; Bilirubin,Urine Negative (Negative); Blood,Urine Large (Negative); Color,Urine Yellow; Glucose,Urine (UA) Negative (Negative); Ketones,Urine Negative (Negative); Leukocyte Esterase,Urine Small (Negative); Mucus,Urine Many /hpf; Nitrite,Urine Negative (Negative); PH, Urine 5.5 (5.0-8.0); Protein,Urine 1+ (Negative); RBC,Urine 129 /hpf (0-5); Specific Gravity,Urine 1.022 (1.001-1.035); Squamous Epithelial Cell,Urine 10 /hpf (0-4); Urobilinogen,Urine <2.0 mg/dL (<2.0); WBC,Urine 28 /hpf (0-5)
[2022-09-04] MEDS ORDERED: ONDANSETRON 4 MG ODT STARTER PACK 2 TAB BTL PO STA (00:26)
[2022-09-04] MEDS ORDERED: ONDANSETRON ODT 4 MG TAB PO STA (00:26)
[2022-09-04] MEDS ORDERED: ONDANSETRON 4 MG TAB PO STA (00:26)
== END 2022-09-04 00:30 | disposition home or self-care (01) ==
LOC: EC 20:46
DX: N13.2 Hydronephrosis with renal and ureteral calculous obstruction (principal); E88.89 Other specified metabolic disorders; K21.9 Gastro-esophageal reflux disease without esophagitis; E78.5 Hyperlipidemia, unspecified; I10 Essential (primary) hypertension; M19.90 Unspecified osteoarthritis, unspecified site; Z86.73 Personal history of transient ischemic attack (TIA), and cerebral infarction without residual deficits; Z87.891 Personal history of nicotine dependence; Z88.1 Allergy status to other antibiotic agents; Z91.040 Latex allergy status; Z91.041 Radiographic dye allergy status; Z88.8 Allergy status to other drugs, medicaments and biological substances; Z79.899 Other long term (current) drug therapy
CPT/HCPCS: 36415; 80053; 83605; 85025; 81001; 74018; 74176; 99285; 96374; 96375 ×2; 96376; 96361; J2405; J1885; J1170; 87086

== ENCOUNTER 2022-09-11 08:51 | Day surgery (SDC) | payer BC, MEDICARE ==
[2022-09-07 12:21] VITALS: BMI 29.9
[2022-09-11] MEDS ORDERED: LIDOCAINE 1% (10MG/ML) FOR IV START INTRADERMA PRN (09:00)
[2022-09-11] MEDS ORDERED: LACTATED RINGERS 1,000 ML IV SCH (09:00)
[2022-09-11 09:09] VITALS: RESP 16; TEMP 97.8
[2022-09-11] MEDS ORDERED: methylPREDNISolone ACETATE 80 MG/ML 1 ML VIAL ONE (09:30)
[2022-09-11] MEDS ORDERED: ROPIVACAINE 5 MG/ML 20 ML AMPULE ONE (09:30)
--- NOTE | 2022-09-11 09:46 | P.PCN ---
Date of Procedure: 09/11/22 Procedure(s) Performed: Preoperative Diagnosis: 1-Suprascapular neuritis, 2-Bilateral shoulder pain Postoperative diagnosis: Same as preop diagnosis. Description of Procedure: Procedure performed is bilateral suprascapular nerve block under fluoroscopy guidance Anesthesia=. Local only with ropivacaine 0.5% 3 for skin and subcu infiltration . The patient was seen in the preoperative area and consent was signed. The patient brought to the OR and placed in the prone position. The area was cleansed with chlorhexidine, the area was draped. X-ray was used to identify the right scapular spine. Notch of the scapular spine is 22-gauge 31/2 inch needle. . After negative aspiration. 6 mL of 0.5% ropivacaine along with 40 mg of Depo-Medrol was used in the area. The needle was removed intact. and the exact same procedure done for the left side at the end of the procedure Cleansed and a bandage was placed. Patient will follow up in the clinic in 2-4 weeks as needed
[2022-09-11 09:48] VITALS: BP 140/74; PULSE 75
--- NOTE | 2022-09-11 10:09 | FL ---
Fluoroscopy History: PAIN 0.09710 DAP. 11.1 Sec Fl time- AB/SC
== END 2022-09-11 10:14 | disposition home or self-care (01) ==
LOC: ORPAIN 08:51
PROVIDERS: ATTEND Specialist
DX: G62.9 Polyneuropathy, unspecified (principal); Z91.048 Other nonmedicinal substance allergy status; Z88.0 Allergy status to penicillin; Z91.011 Allergy to milk products
CPT/HCPCS: 64418; 77002; J1040; J2795

== ENCOUNTER → 2023-02-15 | Outpatient (CLI) | payer BC, MEDICARE ==
--- NOTE | 2023-02-15 16:03 | XR ---
EXAMINATION TYPE: XR chest 2V DATE OF EXAM: 02/15/2023 COMPARISON: 08/28/2011 HISTORY: 52-year-old female J18.1 LOBAR PNEUMONIA, UNSPECIFIED ORGANISM TECHNIQUE: Frontal and lateral views FINDINGS: ACDF hardware. The cardiomediastinal silhouette, aorta, and pulmonary vasculature are within normal l imits. Lungs and pleural spaces are clear. IMPRESSION: No acute cardiopulmonary process.
== END | disposition home or self-care (01) ==
LOC: RADXRMAIN 15:40
PROVIDERS: ATTEND Family Medicine
DX: J18.1 Lobar pneumonia, unspecified organism (principal)
CPT/HCPCS: 71046

== ENCOUNTER → 2023-10-04 | Outpatient (CLI) | payer MEDICARE ==
--- NOTE | 2023-10-08 10:30 | MM ---
Reason for Exam: Screening (asymptomatic). Last mammogram was performed 1 year(s) and 1 month(s) ago. Patient History: Menarche at age 12. First Full-Term at age 16. Hysterectomy at age 31. 2018, Benign Excisional Biopsy on the right side. Risk Values: Aleida 5 year model risk: 1.0%. NCI Lifetime model risk: 7.2%. Prior Study Comparison: 06/21/2020 Bilateral Screening Mammogram, [facility]. 08/08/2021 Bilateral Screening Mammogram, [facility]. 08/10/2022 Bilateral MG 3D screening mammo w/cad, [facility]. Tissue Density: The breasts are heterogeneously dense, which may obscure small masses. Findings: Analyzed By CAD. There is no suspicious group of microcalcifications or new suspicious mass in either breast. Benign punctate calcifications. Overall Assessment: Benign, BI-RAD 2 Management: Screening Mammogram of both breasts in 1 year. . Patient should continue monthly self-breast exams. A clinical breast exam by your physician is recommended on an annual basis. This exam should not preclude additional follow-up of suspicious palpable abnormalities. Note on Aleida scores and lifetime risk: 1. A Aleida score greater than 3% is considered moderate risk. If this is the case, consider specialist referral to assess eligibility for a risk reducing agent. 2. If overall lifetime risk for the development of breast cancer is 20% or higher, the patient may qualify for future screening with alternating mammogram and breast MRI. Electronically signed and approved by: Meng Nicole M.D. Radiologis
== END | disposition home or self-care (01) ==
LOC: RADMAMWWP 16:14
PROVIDERS: ATTEND Family Medicine
DX: Z12.31 Encounter for screening mammogram for malignant neoplasm of breast (principal)
CPT/HCPCS: 77063; 77067

== ENCOUNTER → 2023-10-24 | Outpatient (CLI) | payer MEDICARE ==
--- NOTE | 2023-10-24 11:40 | XR ---
EXAMINATION TYPE: XR KUB DATE OF EXAM: 10/24/2023 COMPARISON: KUB 09/03/2022, CT abdomen pelvis 09/03/2022 HISTORY: Calculus kidney TECHNIQUE: Single supine KUB image of the abdomen is obtained FINDINGS: Small bowel demonstrates no evidence for dilatation or air fluid levels. Gas and fecal material is seen in non-distended colon. No convincing evidence for pneumoperitoneum. Increased size of right renal 1.8 cm calculus. No definitive left renal calculi. Multiple pelvic calc ifications redemonstrated most consistent with pelvic phleboliths. Distal ureteral calculus is not ex cluded. The osseous structures are intact. Mild levocurvature of the thoracolumbar spine. IMPRESSION: 1. Increased size of right renal 1.8 cm calculus. 2. Multiple pelvic calcifications redemonstrated most consistent with pelvic phleboliths. Distal uret eral calculus is not excluded.
== END | disposition home or self-care (01) ==
LOC: RADXRMAIN 11:18
PROVIDERS: ATTEND Urology
DX: N20.0 Calculus of kidney (principal)
CPT/HCPCS: 74018

== ENCOUNTER 2023-10-25 17:46 | Inpatient (IN) | payer MEDICARE ==
--- NOTE | 2023-10-25 18:54 | ED ---
Abdominal Pain HPI - General Chief Complaint: Abdominal Pain Stated Complaint: Abd Pain Time Seen by Provider: 10/25/23 18:52 Source: patient, RN notes reviewed Mode of arrival: ambulatory Limitations: no limitations - History of Present Illness Initial Comments: 53-year-old female with history of kidney stones presenting with right flank pain x 2 days. Describes the pain as constant, colicky pain that is worsening radiating to the right pelvis. She has history of multiple kidney stones and states this feels similar. She admits to nausea but denies vomiting, is tolerating orals well but has decreased appetite. Denies dysuria or hematuria. Denies blood thinners. Denies any change in bowel habits. - Related Data Home Medications Medication Instructions Recorded Confirmed hydroCHLOROthiazide 25 mg PO DAILY 09/06/21 10/29/22 Losartan Potassium 50 mg PO DAILY 11/02/21 10/29/22 Naproxen Sodium [Aleve] 220 mg PO BID PRN 11/02/21 10/29/22 Solifenacin Succinate 5 mg PO DAILY 05/04/22 10/29/22 Ketorolac [Toradol] 10 mg PO Q8HR PRN 09/07/22 10/29/22 Allergies Allergy/AdvReac Type Severity Reaction Status Date / Time milk Allergy Unknown HEADACHES,EAR Verified 10/25/23 18:00 INFECTIONS amoxicillin [Amoxicillin] AdvReac Severe YEAST Verified 10/25/23 18:00 INFECTIONS adhesive tape AdvReac RED SKIN Verified 10/25/23 18:00 latex AdvReac SKIN RED Verified 10/25/23 18:00 WITH TAPES, BANDAIDS, STATES UNSURE OF LATEX ALLERG silicone AdvReac Rash/Hives Verified 10/25/23 18:01 Review of Systems ROS Statement: Those systems with pertinent positive or pertinent negative responses have been documented in the HPI. ROS Other: All systems not noted in ROS Statement are negative. Past Medical History Past Medical History: CVA/TIA, GERD/Reflux, Hyperlipidemia, Hypertension, Memory Impairment, Musculoskeletal Disorder, Osteoarthritis (OA) Additional Past Medical History / Comment(s): Migraines. Kidney stones. Chronic constipation, occ diarrhea. Cervical DDD, hx fusions x2. CVA 09/30/14, sl memory changes. History of Any Multi-Drug Resistant Organisms: None Reported Past Surgical History: Ear Surgery, Hysterectomy, Orthopedic Surgery, Tubal Ligation Additional Past Surgical History / Comment(s): BMT. Cervical Fusions X2, last 09/30/14. Lithotripsy x4. Pain clinic - Last 08/03/14. Colonoscopy. Rt shoulder surg. kidney stone removal Past Anesthesia/Blood Transfusion Reactions: Previous Problems w/ Anesthesia, Family History of Problems w/ Anesthesia, Motion Sickness, Postoperative Nausea & Vomiting (PONV) Additional Past Anesthesia/Blood Transfusion Reaction / Comment(s): Sister, father have PONV. Patient states had a stroke after 2nd cervical surgery 09/30/14. Past Psychological History: No Psychological Hx Reported Smoking Status: Former smoker Past Alcohol Use History: None Reported Past Drug Use History: None Reported - Past Family History Mother Family Medical History: Cancer Additional Family Medical History / Comment(s): pre-cancer cells in colon. Father Family Medical History: Cancer, CVA/TIA Additional Family Medical History / Comment(s): "Poss blood clot in neck," PRIOR TO STROKE, TOLD "IT WAS BLOCKED." General Exam Limitations: no limitations General appearance: alert, in no apparent distress Head exam: Present: atraumatic, normocephalic, normal inspection Eye exam: Present: normal appearance, PERRL, EOMI. Absent: scleral icterus, conjunctival injection, periorbital swelling Respiratory exam: Present: normal lung sounds bilaterally. Absent: respiratory distress, wheezes, rales, rhonchi, stridor Cardiovascular Exam: Present: regular rate, normal rhythm, normal heart sounds. Absent: systolic murmur, diastolic murmur, rubs, gallop, clicks GI/Abdominal exam: Present: soft, normal bowel sounds. Absent: distended, tenderness, guarding, rebound, rigid Back exam: Absent: CVA tenderness (R), CVA tenderness (L) Neurological exam: Present: alert, oriented X3 Psychiatric exam: Present: normal affect, normal mood Skin exam: Present: warm, dry, intact, normal color. Absent: rash Course Vital Signs 10/25/23 10/25/23 10/25/23 17:57 19:30 22:38 Temperature 98.0 F Pulse Rate 99 65 84 Respiratory 18 18 17 Rate Blood Pressure 143/88 132/76 146/79 O2 Sat by Pulse 99 98 98 Oximetry 10/26/23 01:13 Temperature Pulse Rate 82 Respiratory 17 Rate Blood Pressure 129/73 O2 Sat by Pulse 96 Oximetry Medical Decision Making - Medical Decision Making Was pt. sent in by a medical professional or institution (RAMYA Delcid, FLAKE CUTTER OPERATOR, urgent ca re, hospital, or skilled nursing...) When possible be specific @ -No Did you speak to anyone other than the patient for history (EMS, parent, family, police, friend...)? What history was obtained from this source @ -No Did you review nursing and triage notes (agree or disagree)? Why? @ -I reviewed and agree with nursing and triage notes Were old charts reviewed (outside hosp., previous admission, EMS record, old EKG, old radiological studies, urgent care reports/EKG's, skilled nursing records)? Report findings @ -No old charts were reviewed Differential Diagnosis (chest pain, altered mental status, abdominal pain women, abdominal pain men, vaginal bleeding, weakness, fever, dyspnea, syncope, he adache, dizziness, GI bleed, back pain, seizure, CVA, palpatations, mental health, musculoskeletal)? @ -Differential Abdominal Pain Women: Appendicitis, Cholecystitis, diverticulosis, ischemic bowel, pancreatitis, hepatitis, UTI, gastroenteritis, AAA, incarcerated hernia, bowel obstruction, constipation, inflammatory bowel, hepatitis, peptic ulcer disease, splenic infarction, perforated viscus, vulvitis, ovarian torsion, PID, kidney stone, placenta abruption, this is not meant to be an all-inclusive list EKG interpreted by me (3pts min.). @ -None X-rays interpreted by me (1pt min.). @ -KUB revealed right renal pelvis calculus CT interpreted by me (1pt min.). @ -CT revealed moderate right hydronephrosis secondary to obstructing 13 mm calculus at ureteral pelvic junction, hepatic steatosis U/S interpreted by me (1pt. min.). @ -None done What testing was considered but not performed or refused? (CT, X-rays, U/S, labs)? Why? @ -None What meds were considered but not given or refused? Why? @ -None Did you discuss the management of the patient with other professionals (professionals i.e. RAMYA Delcid, FLAKE CUTTER OPERATOR, lab, RT, psych nurse, social media strategist, ophthalmic medical technician, teacher, co founder and chief strategy officer, continuous pillowcase cutter)? Give summary @ -I spoke with Dr. Garcia who is the on-call urologist who accepts admission at this time for pain control. Was smoking cessation discussed for >3mins.? @ -No Was critical care preformed (if so, how long)? @ -No Were there social determinants of health that impacted care today? How? (H omelessness, low income, unemployed, alcoholism, drug addiction, transportation, low edu. Level, literacy, decrease access to med. care, half-way, rehab)? @ -No Was there de-escalation of care discussed even if they declined (Discuss DNR or withdrawal of care, Hospice)? DNR status @ -No What co-morbidities impacted this encounter? (DM, HTN, Smoking, COPD, CAD, Cancer, CVA, ARF, Chemo, Hep., AIDS, mental health diagnosis, sleep apnea, morbid obesity)? @ -None Was patient admitted / discharged? Hospital course, mention meds given and route, prescriptions, significant lab abnormalities, going to OR and other pertinent info. @ -Patient was admitted. Patient was seen and evaluated for right flank pain x 2 days. Vital signs are within normal limits. Physical exam is unremarkable. Patient is given IV fluids, Zofran, and Toradol for pain. Lab work including CBC, CMP, lipase, lactic acid is remarkable for white blood cell count of 15.9 with left shift. Creatinine is 1.14, BUN is 30. Urine revealed moderate blood, 11 red blood cells, [address] revealed moderate right hydrone phrosis secondary to obstructing 13 mm calculus at ureteropelvic junction. Upon reevaluation, discussed diagnosis of right nephrolithiasis with patient. Patient's pain is not controlled at this time and she is requesting more pain medication. Patient is then given IV Dilaudid. I spoke with Dr. Garcia who accepted admission at this time for pain control secondary to right nephrolithiasis. Patient is agreeable to this plan. He is requesting KUB which was taken and revealed right renal pelvis calculus. Case was discussed with my ED attending Dr. Lyons. Undiagnosed new problem with uncertain prognosis? @ -No Drug Therapy requiring intensive monitoring for toxicity (Heparin, Nitro, Insulin, Cardizem)? @ -No Were any procedures done? @ -No Diagnosis/symptom? @ -Right nephrolithiasis Acute, or Chronic, or Acute on Chronic? @ -Acute Uncomplicated (without systemic symptoms) or Complicated (systemic symptoms)? @ -Uncomplicated Side effects of treatment? @ -No Exacerbation, Progression, or Severe Exacerbation? @ -No Poses a threat to life or bodily function? How? (Chest pain, USA, ME, pneumonia, PE, COPD, DKA, ARF, appy, cholecystitis, CVA, Diverticulitis, Homicidal, Suicidal, threat to staff... and all critical care pts) @ -Unlikely at this time - Lab Data Result diagrams: 10/25/23 19:00 10/25/23 19:00 Lab Results 10/25/23 10/25/23 10/25/23 Range/Units 19:00 19:00 19:00 WBC 15.9 H (3.8-10.6) k/uL RBC 4.76 (3.80-5.40) m/uL Hgb 15.3 (11.4-16.0) gm/dL Hct 46.1 H (34.0-46.0) % MCV 96.9 (80.0-100.0) fL MCH 32.3 (25.0-35.0) pg MCHC 33.3 (31.0-37.0) g/dL RDW 13.3 (11.5-15.5) % Plt Count 307 (150-450) k/uL MPV 6.9 Neutrophils % 78 % Lymphocytes % 13 % Monocytes % 6 % Eosinophils % 2 % Basophils % 0 % Neutrophils # 12.4 H (1.3-7.7) k/uL Lymphocytes # 2.0 (1.0-4.8) k/uL Monocytes # 0.9 (0-1.0) k/uL Eosinophils # 0.3 (0-0.7) k/uL Basophils # 0.1 (0-0.2) k/uL Sodium 137 (137-145) mmol/L Potassium 4.2 (3.5-5.1) mmol/L Chloride 106 (98-107) mmol/L Carbon Dioxide 25 (22-30) mmol/L Anion Gap 6 mmol/L BUN 30 H (7-17) mg/dL Creatinine 1.14 H (0.52-1.04) mg/dL Est GFR (CKD-EPI)AfAm 63 (>60 ml/min/1.73 sqM) Est GFR (CKD-EPI)NonAf 55 (>60 ml/min/1.73 sqM) Glucose 113 H (74-99) mg/dL Plasma Lactic Acid Ozzie (0.7-2.0) mmol/L Calcium 9.3 (8.4-10.2) mg/dL Total Bilirubin 1.1 (0.2-1.3) mg/dL AST 23 (14-36) U/L ALT 19 (4-34) U/L Alkaline Phosphatase 119 (38-126) U/L Total Protein 7.2 (6.3-8.2) g/dL Albumin 4.1 (3.5-5.0) g/dL Lipase 57 (23-300) U/L Urine Color Yellow Urine Appearance Cloudy H (Clear) Urine pH 5.5 (5.0-8.0) Ur Specific [place] 1.028 (1.001-1.035) Urine Protein Trace H (Negative) Urine Glucose (UA) Negative (Negative) Urine Ketones Negative (Negative) Urine Blood Moderate H (Negative) Urine Nitrite Negative (Negative) Urine Bilirubin Negative (Negative) Urine Urobilinogen <2.0 (<2.0) mg/dL Ur Leukocyte Esterase Small H (Negative) Urine RBC 11 H (0-5) /hpf Urine WBC 20 H (0-5) /hpf Ur Squamous Epith Cells 7 H (0-4) /hpf Urine Bacteria Rare H (None) /hpf Urine Mucus Occasional H (None) /hpf 10/25/23 Range/Units 19:00 WBC (3.8-10.6) k/uL RBC (3.80-5.40) m/uL Hgb (11.4-16.0) gm/dL Hct (34.0-46.0) % MCV (80.0-100.0) fL MCH (25.0-35.0) pg MCHC (31.0-37.0) g/dL RDW (11.5-15.5) % Plt Count (150-450) k/uL MPV Neutrophils % % Lymphocytes % % Monocytes % % Eosinophils % % Basophils % % Neutrophils # (1.3-7.7) k/uL Lymphocytes # (1.0-4.8) k/uL Monocytes # (0-1.0) k/uL Eosinophils # (0-0.7) k/uL Basophils # (0-0.2) k/uL Sodium (137-145) mmol/L Potassium (3.5-5.1) mmol/L Chloride (98-107) mmol/L Carbon Dioxide (22-30) mmol/L Anion Gap mmol/L BUN (7-17) mg/dL Creatinine (0.52-1.04) mg/dL Est GFR (CKD-EPI)AfAm (>60 ml/min/1.73 sqM) Est GFR (CKD-EPI)NonAf (>60 ml/min/1.73 sqM) Glucose (74-99) mg/dL Plasma Lactic Acid Ozzie 0.9 (0.7-2.0) mmol/L Calcium (8.4-10.2) mg/dL Total Bilirubin (0.2-1.3) mg/dL AST (14-36) U/L ALT (4-34) U/L Alkaline Phosphatase (38-126) U/L Total Protein (6.3-8.2) g/dL Albumin (3.5-5.0) g/dL Lipase (23-300) U/L Urine Color Urine Appearance (Clear) Urine pH (5.0-8.0) Ur Specific [place] (1.001-1.035) Urine Protein (Negative) Urine Glucose (UA) (Negative) Urine Ketones (Negative) Urine Blood (Negative) Urine Nitrite (Negative) Urine Bilirubin (Negative) Urine Urobilinogen (<2.0) mg/dL Ur Leukocyte Esterase (Negative) Urine RBC (0-5) /hpf Urine WBC (0-5) /hpf Ur Squamous Epith Cells (0-4) /hpf Urine Bacteria (None) /hpf Urine Mucus (None) /hpf Disposition Clinical Impression: Right nephrolithiasis Disposition: ADMITTED IP TO [facility] Time of Disposition: 05:33
[2023-10-25] MEDS: ONDANSETRON 4 MG/2 ML VIAL IVP STA (19:05)
[2023-10-25] MEDS: KETOROLAC 15 MG/ML 1 ML VIAL IVP STA ×2 (19:06→21:47)
[2023-10-25] MEDS: SODIUM CHLORIDE 0.9% 1,000 ML IV STA ×2 (19:08→22:36)
[2023-10-25 19:18] LABS: Basophils # (A) 0.1 k/uL (0-0.2); Basophils % (A) 0 %; Eosinophils # (A) 0.3 k/uL (0-0.7); Eosinophils % (A) 2 %; HCT 46.1 % (34.0-46.0); HGB 15.3 gm/dL (11.4-16.0); Lymphocytes % (A) 13 %; MCH 32.3 pg (25.0-35.0); MCHC 33.3 g/dL (31.0-37.0); MCV 96.9 fL (80.0-100.0); Mean Platelet Volume 6.9; Monocytes # (A) 0.9 k/uL (0-1.0); Monocytes % (A) 6 %; Neutrophils # (A) 12.4 k/uL (1.3-7.7); Neutrophils % (A) 78 %; Platelet Count 307 k/uL (150-450); RBC 4.76 m/uL (3.80-5.40); RDW 13.3 % (11.5-15.5); WBC 15.9 k/uL (3.8-10.6)
[2023-10-25 19:29] LABS: Appearance,Urine Cloudy (Clear); Bacteria,Urine Rare /hpf; Bilirubin,Urine Negative (Negative); Blood,Urine Moderate (Negative); Color,Urine Yellow; Glucose,Urine (UA) Negative (Negative); Ketones,Urine Negative (Negative); Leukocyte Esterase,Urine Small (Negative); Mucus,Urine Occasional /hpf; Nitrite,Urine Negative (Negative); PH, Urine 5.5 (5.0-8.0); Protein,Urine Trace (Negative); RBC,Urine 11 /hpf (0-5); Specific Gravity,Urine 1.028 (1.001-1.035); Squamous Epithelial Cell,Urine 7 /hpf (0-4); Urobilinogen,Urine <2.0 mg/dL (<2.0); WBC,Urine 20 /hpf (0-5)
[2023-10-25 19:41] LABS: ALT 19 U/L (4-34); AST 23 U/L (14-36); African American GFR (CKD) 63 (>60 ml/min/1.73 sqM); Albumin 4.1 g/dL (3.5-5.0); Alkaline Phosphatase 119 U/L (38-126); Anion Gap 6 mmol/L; Blood Urea Nitrogen 30 mg/dL (7-17); Calcium 9.3 mg/dL (8.4-10.2); Carbon Dioxide 25 mmol/L (22-30); Chloride 106 mmol/L (98-107); Glucose 113 mg/dL (74-99); Lipase 57 U/L (23-300); Non-African American GFR(CKD) 55 (>60 ml/min/1.73 sqM); Potassium 4.2 mmol/L (3.5-5.1); Sodium 137 mmol/L (137-145); Total Bilirubin 1.1 mg/dL (0.2-1.3); Total Protein 7.2 g/dL (6.3-8.2)
--- NOTE | 2023-10-25 20:14 | CT ---
EXAMINATION TYPE: CT abdomen pelvis wo con CT DLP: 639.1 mGycm, Automated exposure control for dose reduction was used. DATE OF EXAM: 10/25/2023 7:30 PM COMPARISON: 09/03/2022 CLINICAL INDICATION:Female, 53 years old with history of right flank pain, kidney stone suspected; ri ght flank pain. hx of kidney stones TECHNIQUE: Axial CT abdomen pelvis wo con;Sagittal and coronal reformats were created on a separate workstation. Contrast used: mL of , (none if empty) Oral contrast used: without Oral Contrast (none if empty) FINDINGS: LOWER CHEST: Unremarkable ABDOMEN LIVER: Diffusely hypoattenuating parenchyma. GALLBLADDER AND BILE DUCTS: Unremarkable. PANCREAS: Unremarkable. SPLEEN: Unremarkable. ADRENAL GLANDS: Unremarkable. KIDNEYS AND URETERS: Moderate right hydronephrosis secondary obstructing 13 mm calculus at the ureter al pelvic junction. Additional nonobstructing renal calculi measuring 4 mm. No left renal calculi, in the left hydronephrosis. PELVIS BLADDER: Unremarkable REPRODUCTIVE: Unremarkable. ABDOMEN & PELVIS STOMACH AND BOWEL: No evidence of bowel obstruction. PERITONEUM/RETROPERITONEUM: No evidence of pneumoperitoneum or free fluid. VASCULATURE: No evidence of aortic aneurysm. MUSCULOSKELETAL: No acute osseous abnormalities LYMPH NODES: No gross evidence for lymphadenopathy. SOFT TISSUE/ABDOMINAL WALL: Tiny fat-containing umbilical hernia. IMPRESSION: 1. Moderate right hydronephrosis secondary obstructing 13 mm calculus at the ureteral pelvic junctio n. 2. Hepatic steatosis
--- NOTE | 2023-10-25 21:54 | XR ---
EXAMINATION TYPE: XR KUB DATE OF EXAM: 10/25/2023 9:43 PM CLINICAL INDICATION:Female, 53 years old with history of right nephrolithiasis; [facility] COMPARISON: CT same day. TECHNIQUE: One radiographic view of the abdomen was obtained. FINDINGS/IMPRESSION: Right renal pelvis calculus as seen on CT same day.
[2023-10-25] MEDS ORDERED: NALOXONE 0.4 MG/ML 1 ML VIAL IV PRN (22:23)
[2023-10-25] MEDS ORDERED: IBUPROFEN 400 MG TAB PO PRN (22:23)
[2023-10-25] MEDS: HYDROmorphone 0.5 MG/0.5 ML SYRINGE IVP PRN (23:38)
[2023-10-26 02:38] VITALS: RESP 16
[2023-10-26] MEDS: KETOROLAC 15 MG/ML 1 ML VIAL IVP PRN (06:29)
--- NOTE | 2023-10-26 10:12 | P.GSHP ---
History of Present Illness H&P Date: 10/26/23 Chief Complaint: Right renal colic Patient is a 53-year-old white female with a history of recurrent urolithiasis. Her calculi in the past have been composed predominantly of calcium oxalate monohydrate. She now presents with right renal colic (onset 10/23/2023) and was found to have moderate right hydronephrosis due to a 13 mm right proximal ureteral calculus near the UPJ. - Constitutional Constitutional: Denies chills, Denies fever - Gastrointestinal Gastrointestinal: Reports nausea, Denies vomiting - Genitourinary (Female) Genitourinary: Reports flank pain, Reports kidney stones, Denies dysuria, Denies hematuria Past Medical History Past Medical History: CVA/TIA, GERD/Reflux, Hyperlipidemia, Hypertension, Memory Impairment, Musculoskeletal Disorder, Osteoarthritis (OA) Additional Past Medical History / Comment(s): Migraines. Kidney stones. Chronic constipation, occ diarrhea. Cervical DDD, hx fusions x2. CVA 09/30/14, sl memory changes. History of Any Multi-Drug Resistant Organisms: None Reported Past Surgical History: Ear Surgery, Hysterectomy, Orthopedic Surgery, Tubal Ligation Additional Past Surgical History / Comment(s): BMT. Cervical Fusions X2, last 09/30/14. Lithotripsy x4. Pain clinic - Last 08/03/14. Colonoscopy. Rt shoulder surg. kidney stone removal Past Anesthesia/Blood Transfusion Reactions: Previous Problems w/ Anesthesia, Family History of Problems w/ Anesthesia, Motion Sickness, Postoperative Nausea & Vomiting (PONV) Additional Past Anesthesia/Blood Transfusion Reaction / Comment(s): Sister, father have PONV. Patient states had a stroke after 2nd cervical surgery 09/30/14. Past Psychological History: No Psychological Hx Reported Smoking Status: Former smoker Past Alcohol Use History: None Reported Past Drug Use History: None Reported - Past Family History Mother Family Medical History: Cancer Additional Family Medical History / Comment(s): pre-cancer cells in colon. Father Family Medical History: Cancer, CVA/TIA Additional Family Medical History / Comment(s): "Poss blood clot in neck," PRIOR TO STROKE, TOLD "IT WAS BLOCKED." Medications and Allergies Home Medications Medication Instructions Recorded Confirmed Type hydroCHLOROthiazide 25 mg PO DAILY 09/06/21 10/29/22 History Losartan Potassium 50 mg PO DAILY 11/02/21 10/29/22 History Naproxen Sodium [Aleve] 220 mg PO BID PRN 11/02/21 10/29/22 History Solifenacin Succinate 5 mg PO DAILY 05/04/22 10/29/22 History Ketorolac [Toradol] 10 mg PO Q8HR PRN 09/07/22 10/29/22 History Allergies Allergy/AdvReac Type Severity Reaction Status Date / Time milk Allergy Unknown HEADACHES,EAR Verified 10/25/23 18:00 INFECTIONS amoxicillin [Amoxicillin] AdvReac Severe YEAST Verified 10/25/23 18:00 INFECTIONS adhesive tape AdvReac RED SKIN Verified 10/25/23 18:00 latex AdvReac SKIN RED Verified 10/25/23 18:00 WITH TAPES, BANDAIDS, STATES UNSURE OF LATEX ALLERG silicone AdvReac Rash/Hives Verified 10/25/23 18:01 Surgical - Exam Vital Signs Temp Pulse Resp BP Pulse Ox 98.0 F 99 18 143/88 99 10/25/23 17:57 10/25/23 17:57 10/25/23 17:57 10/25/23 17:57 10/25/23 17:57 - General well developed, well nourished, moderate distress - Respiratory normal respiratory effort - Abdomen Soft, non-distended, no mass. Mild right-sided tenderness, no guarding or rebound. - Psychiatric oriented to time, oriented to person, oriented to place, speech is normal, memory intact Results - Labs 10/25/23 19:00 10/25/23 19:00 Abnormal Lab Results - Last 24 Hours (Table) 10/25/23 10/25/23 10/25/23 Range/Units 19:00 19:00 19:00 WBC 15.9 H (3.8-10.6) k/uL Hct 46.1 H (34.0-46.0) % Neutrophils # 12.4 H (1.3-7.7) k/uL BUN 30 H (7-17) mg/dL Creatinine 1.14 H (0.52-1.04) mg/dL Glucose 113 H (74-99) mg/dL Urine Appearance Cloudy H (Clear) Urine Protein Trace H (Negative) Urine Blood Moderate H (Negative) Ur Leukocyte Esterase Small H (Negative) Urine RBC 11 H (0-5) /hpf Urine WBC 20 H (0-5) /hpf Ur Squamous Epith Cells 7 H (0-4) /hpf Urine Bacteria Rare H (None) /hpf Urine Mucus Occasional H (None) /hpf Diabetes panel 10/25/23 Range/Units 19:00 Sodium 137 (137-145) mmol/L Potassium 4.2 (3.5-5.1) mmol/L Chloride 106 (98-107) mmol/L Carbon Dioxide 25 (22-30) mmol/L BUN 30 H (7-17) mg/dL Creatinine 1.14 H (0.52-1.04) mg/dL Glucose 113 H (74-99) mg/dL Calcium 9.3 (8.4-10.2) mg/dL AST 23 (14-36) U/L ALT 19 (4-34) U/L Alkaline Phosphatase 119 (38-126) U/L Total Protein 7.2 (6.3-8.2) g/dL Albumin 4.1 (3.5-5.0) g/dL Calcium panel 10/25/23 Range/Units 19:00 Calcium 9.3 (8.4-10.2) mg/dL Albumin 4.1 (3.5-5.0) g/dL Pituitary panel 10/25/23 Range/Units 19:00 Sodium 137 (137-145) mmol/L Potassium 4.2 (3.5-5.1) mmol/L Chloride 106 (98-107) mmol/L Carbon Dioxide 25 (22-30) mmol/L BUN 30 H (7-17) mg/dL Creatinine 1.14 H (0.52-1.04) mg/dL Glucose 113 H (74-99) mg/dL Calcium 9.3 (8.4-10.2) mg/dL Adrenal panel 10/25/23 Range/Units 19:00 Sodium 137 (137-145) mmol/L Potassium 4.2 (3.5-5.1) mmol/L Chloride 106 (98-107) mmol/L Carbon Dioxide 25 (22-30) mmol/L BUN 30 H (7-17) mg/dL Creatinine 1.14 H (0.52-1.04) mg/dL Glucose 113 H (74-99) mg/dL Calcium 9.3 (8.4-10.2) mg/dL Total Bilirubin 1.1 (0.2-1.3) mg/dL AST 23 (14-36) U/L ALT 19 (4-34) U/L Alkaline Phosphatase 119 (38-126) U/L Total Protein 7.2 (6.3-8.2) g/dL Albumin 4.1 (3.5-5.0) g/dL - Imaging Abdominal x-ray: report reviewed, image reviewed CT scan - abdomen: report reviewed, image reviewed Assessment and Plan (1) Hydronephrosis with urinary obstruction due to ureteral calculus Current Visit: No Status: Acute Code(s): N13.2 - HYDRONEPHROSIS WITH RENAL AND URETERAL CALCULOUS OBSTRUCTION SNOMED Code(s): 7251423764 (2) Calculus of ureter Current Visit: Yes Status: Acute Code(s): N20.1 - CALCULUS OF URETER SNOMED Code(s): 16329423 Plan: The patient has a large, obstructing right proximal ureteral calculus which has a very low likelihood of passage. She is admitted for IV hydration and parenteral analgesics. She will undergo placement of a right ureteral stent tomorrow. I anticipate that she will be discharged home following that procedure, and arrangements would then be made for her to undergo ureteroscopic removal of the calculus. This approach was discussed in detail with the patient, who is understanding of the rationale and potential risks associated with this. Time with Patient: Greater than 30
[2023-10-26] MEDS: PANTOPRAZOLE 40 MG TABLET PO SCH (12:47)
[2023-10-26] MEDS: hydroCHLOROthiazide 25 MG TAB PO SCH (12:47)
[2023-10-26] MEDS: METOPROLOL SUCCINATE (ER) 25 MG TAB.ER.24H PO SCH (12:47)
[2023-10-26] MEDS: LOSARTAN 50 MG TAB PO SCH (12:47)
[2023-10-26] MEDS: TROSPIUM CHLORIDE 20 MG TABLET PO SCH (12:48)
[2023-10-26] MEDS: ONDANSETRON 4 MG/2 ML VIAL IVP PRN (18:22)
[2023-10-27] MEDS ORDERED: hydroCHLOROthiazide 25 MG TAB PO SCH (09:00)
[2023-10-27] MEDS ORDERED: METOPROLOL SUCCINATE (ER) 25 MG TAB.ER.24H PO SCH (09:00)
[2023-10-27] MEDS ORDERED: NON FORMULARY DRUG (Omeprazole [Omeprazole] 20 MG Capsule.Dr) PO SCH (09:00)
[2023-10-27] MEDS ORDERED: SOLIFENACIN SUCCINATE 5 MG PO SCH (09:00)
[2023-10-27] MEDS ORDERED: LOSARTAN 50 MG TAB PO SCH (09:00)
[2023-10-27] MEDS: IV FLUID CONTINUATION 1,000 ML IV ONE (09:22)
[2023-10-27] MEDS: LACTATED RINGERS 1,000 ML BAG IV STA (09:22)
[2023-10-27] MEDS: dexAMETHasone ORAL SOLUTION 10 MG/ML VIAL PO ONE (10:01)
[2023-10-27] MEDS ORDERED: LIDOCAINE 1% INJ 10MG/ML (20 ML MDV) ONE (10:17)
[2023-10-27] MEDS ORDERED: fentaNYL (PF) 50 MCG/ML 2 ML AMP ONE (10:17)
[2023-10-27] MEDS ORDERED: MIDAZOLAM 2 MG/2 ML VIAL ONE (10:17)
[2023-10-27] MEDS ORDERED: PROPOFOL 10 MG/ML 20 ML VIAL IV ONE (10:17)
--- NOTE | 2023-10-27 10:58 | P.OP ---
Date of Procedure: 10/27/23 Preoperative Diagnosis: Right hydronephrosis secondary to right UPJ calculus Postoperative Diagnosis: Same Procedure(s) Performed: Cystoscopy, right ureteroscopy, right ureteral stent insertion Anesthesia: RAYSAA Surgeon: Coleman Garcia Estimated Blood Loss (ml): 0 IV fluids (ml): 400 Pathology: none sent Condition: stable Disposition: PACU Indications for Procedure: Patient is a 53-year-old white female with a history of recurrent urolithiasis. Her calculi in the past have been composed predominantly of calcium oxalate monohydrate. She was admitted with right renal colic (onset 10/23/2023) and was found to have moderate right hydronephrosis due to a 13 mm right proximal ureteral calculus near the UPJ. She now comes for stent insertion. Operative Findings: Large, obstructing right UPJ calculus. Successful right ureteral stent insertion. Description of Procedure: The patient was taken to the operating room and placed in the dorsolithotomy position, with legs supported in Billy stirrups. The external genitalia was prepped and draped sterilely. The 30 lens was used to introduce the 22-Somali Stortz cystoscopic sheath through the urethra and into the bladder under direct vision. The bladder was examined in its entirety. Both ureteral orifices were of normal anatomic location and configuration. No tumors or foreign bodies were seen. A 0.035 inch Glidewire was passed through the cystoscope. The right ureteral orifice was cannulated, and the Glidewire was slowly advanced up to the calculus. However, the calculus was impacted and it was not possible to advance the Glidewire beyond the calculus. The cystoscope was removed, and the [facility] semirigid ureteroscope was advanced into the bladder. The right ureteral orifice was cannulated, and the ureteroscope was slowly advanced under direct vision, up until the calculus could be seen. The Glidewire was passed through the ureteroscope, and it was possible to advance the Glidewire beyond the calculus and up to the right renal pelvis, where it coiled. The ureteroscope was removed, and the Glidewire was backloaded into the cystoscope, which was passed into the bladder. A 26 cm, 6-Somali double-J ureteral stent was placed over the wire. Proper stent positioning was verified fluoroscopically and endoscopically. The bladder was emptied and the cystoscope removed. The patient tolerated the procedure well and was taken to the recovery room in stable condition.
--- NOTE | 2023-10-27 11:20 | FL ---
EXAMINATION TYPE: FL guidance operating room Intraoperative/procedural fluoroscopic services were pro vided. Total fluoroscopy time is 44 seconds with a total of 3 submitted images to PACS. Please see th e operative/procedural note for further details. DAP: 3.1989 mGym2 Gycm2 uGym2 cGycm2
[2023-10-27 11:57] VITALS: BP 122/77; PULSE 73; TEMP 97.6
== END 2023-10-27 14:20 | disposition home or self-care (01) | DRG 661 ==
LOC: EC 17:46 → 5NMEDONC 22:27
PROVIDERS: ADMIT Urology; ATTEND Urology
PROC: 0T768DZ Dilation of Right Ureter with Intraluminal Device, Via Natural or Artificial Opening Endoscopic (ICD-10-PCS; principal; 2023-10-27 07:13)
DX: N13.2 Hydronephrosis with renal and ureteral calculous obstruction (principal); E78.5 Hyperlipidemia, unspecified; I69.311 Memory deficit following cerebral infarction; I10 Essential (primary) hypertension; M19.90 Unspecified osteoarthritis, unspecified site; K21.9 Gastro-esophageal reflux disease without esophagitis; K59.09 Other constipation; M50.30 Other cervical disc degeneration, unspecified cervical region; Z79.899 Other long term (current) drug therapy; Z87.442 Personal history of urinary calculi; Z87.891 Personal history of nicotine dependence; Z98.1 Arthrodesis status; Z91.040 Latex allergy status; Z88.1 Allergy status to other antibiotic agents
CPT/HCPCS: 36415; 74018; 74176; 80053; 81001; 83605; 83690; 85025; 87086; 96361; 96374; 96375; 96376; 99285

== ENCOUNTER 2023-11-19 09:45 | Day surgery (SDC) | payer MEDICARE ==
--- NOTE | 2023-11-05 13:14 | P.HPIHPCON ---
History of Present Illness H&P Date: 11/05/23 Chief Complaint: Right ureteral stone Is a 53-year-old male with history of a recurrent kidney stones, has hx of 1.3 cm right-sided ureteral stone status post stent insertion on October 26. She presents today for right-sided ureteroscopy with holmium laser, aware the risk which includes but not limited to bleeding, infection, injury to the ureter Consent for Procedure: I have explained the operation/procedure to the patient, including the risks, b enefits, side effects, alternative therapies (including not receiving the proposed treatment or service), the likelihood of the patient achieving his/her goals, and potential recuperation problems for the procedure/sedation/analgesia, as well as any blood products, if indicated. I also explained to the patient the risks, benefits and side effects of the alternatives, as well as the risks related to not receiving the proposed procedure, care, treatment, or services. Past Medical History Past Medical History: CVA/TIA, GERD/Reflux, Hyperlipidemia, Hypertension, Memory Impairment, Musculoskeletal Disorder, Osteoarthritis (OA) Additional Past Medical History / Comment(s): Migraines. Kidney stones. Chronic constipation, occ diarrhea. Cervical DDD, hx fusions x2. CVA 09/30/14, sl memory changes. History of Any Multi-Drug Resistant Organisms: None Reported Past Surgical History: Ear Surgery, Hysterectomy, Orthopedic Surgery, Tubal Ligation Additional Past Surgical History / Comment(s): BMT. Cervical Fusions X2, last 09/30/14. Lithotripsy x4. Pain clinic - Last 08/03/14. Colonoscopy. Rt shoulder surg. kidney stone removal Past Anesthesia/Blood Transfusion Reactions: Previous Problems w/ Anesthesia, Family History of Problems w/ Anesthesia, Motion Sickness, Postoperative Nausea & Vomiting (PONV) Additional Past Anesthesia/Blood Transfusion Reaction / Comment(s): Sister, father have PONV. Patient states had a stroke after 2nd cervical surgery 09/30/14. Past Psychological History: No Psychological Hx Reported Smoking Status: Former smoker Past Alcohol Use History: None Reported Past Drug Use History: None Reported - Past Family History Mother Family Medical History: Cancer Additional Family Medical History / Comment(s): pre-cancer cells in colon. Father Family Medical History: Cancer, CVA/TIA Additional Family Medical History / Comment(s): "Poss blood clot in neck," PRIOR TO STROKE, TOLD "IT WAS BLOCKED." Medications and Allergies Home Medications Medication Instructions Recorded Confirmed Type Losartan Potassium 50 mg PO DAILY 11/02/21 10/26/23 History Solifenacin Succinate 5 mg PO DAILY 05/04/22 10/26/23 History Metoprolol Succinate (ER) [Toprol 25 mg PO DAILY 10/26/23 10/26/23 History Xl] Omeprazole 20 mg PO DAILY 10/26/23 10/26/23 History hydroCHLOROthiazide [Hydrodiuril] 25 mg PO DAILY 10/26/23 10/26/23 History Ketorolac [Toradol] 10 mg PO Q6HR PRN #10 tab 10/27/23 Rx Tamsulosin [Flomax] 0.4 mg PO DAILY #30 cap 10/27/23 Rx Trospium Chloride [Sanctura] 20 mg PO BID #60 tablet 10/27/23 Rx Allergies Allergy/AdvReac Type Severity Reaction Status Date / Time milk Allergy Unknown HEADACHES,EAR Verified 10/26/23 11:15 INFECTIONS amoxicillin [Amoxicillin] AdvReac Severe YEAST Verified 10/26/23 11:15 INFECTIONS adhesive tape AdvReac RED SKIN Verified 10/26/23 11:15 latex AdvReac SKIN RED Verified 10/26/23 11:15 WITH TAPES, BANDAIDS, STATES UNSURE OF LATEX ALLERG silicone AdvReac Rash/Hives Verified 10/26/23 11:15 Surgical - Exam - General no distress, no pain - Eyes normal ocular movement - ENT normal nares, normal mucosa - Abdomen Abdomen: soft, non tender Assessment and Plan Assessment: OR for right-sided ureteroscopy, holmium laser lithotripsy, stone basketing and stent removal
[2023-11-19] MEDS ORDERED: ONDANSETRON 4 MG/2 ML VIAL ONE (13:33)
[2023-11-19] MEDS ORDERED: DEXAMETHASONE SOD PHOSPHATE 4 MG/ML 1 ML VIAL ONE (13:33)
[2023-11-19] MEDS ORDERED: ceFAZolin 1,000 MG VIAL ONE (15:17)
[2023-11-19] MEDS ORDERED: LACTATED RINGERS 1,000 ML BAG ONE (15:17)
[2023-11-19] MEDS ORDERED: fentaNYL (PF) 50 MCG/ML 2 ML AMP ONE (15:17)
[2023-11-19] MEDS ORDERED: PROPOFOL 10 MG/ML 20 ML VIAL IV ONE (15:17)
[2023-11-19] MEDS ORDERED: LIDOCAINE 1% INJ 10MG/ML (20 ML MDV) ONE (15:17)
[2023-11-19] MEDS ORDERED: SODIUM CHLORIDE 0.9% 50 ML BAG ONE (15:17)
--- NOTE | 2023-12-26 12:28 | OP ---
OPERATIVE REPORT DATE OF SERVICE : 11/19/2023 PREOPERATIVE DIAGNOSIS: Right ureteral stone. POSTOPERATIVE DIAGNOSIS: Right ureteral stone. OPERATIONS: Right ureteroscopy, holmium laser lithotripsy, stone basketing, and stent removal. COMPLICATIONS: None. CONDITION: Stable. IMPLANTS: None. ESTIMATED BLOOD LOSS: 5 mL. INDICATIONS: This is a 53-year-old female with history of 1.3 cm right-sided proximal ureteral stone, status post stent insertion last month, presents today for definitive stone management, right-sided ureteroscopy with Holmium laser was discussed. I reviewed all the risks, which include, but are not limited to bleeding, infection, or injury to the ureter. OPERATIVE FINDINGS: A large right-sided renal pelvic stone. DESCRIPTION OF PROCEDURE: The patient was brought to the operating room, general anesthesia was induced. She was prepped and draped in sterile fashion, placed in the dorsal lithotomy position. Cystoscope with a 21-Ivorian sheath was inserted per urethra. Cystoscopy was performed which showed no abnormality within the bladder. The stent was protruding from the right ureteral orifice, stent was grasped using the stent grasper and removed from the meatus. Next, the sensor wire was advanced into the right kidney. Location of the wire was confirmed with a fluoroscopy. At this point, a large right ureteral stone was seen. At this point, 11/13-Ivorian access sheath was passed over the wire into the proximal ureter under fluoroscopy. Next, a flexible ureteroscope was inserted through the access sheath, renoscopy was performed which showed a large stone in the renal pelvis. Using the holmium laser, the stone was fragmented any sizeable stone fragments were removed using the stone basket. Repeat renoscopy showed no sizable stone or injury to the kidney. On fluoroscopy, there was no radiopaque density seen. Pullback ureteroscopy was performed, which showed no injury to the ureter or any ureteral stones. There was no ureteral edema. Thus, a stent was not placed. The bladder was emptied at the end of the case. The patient tolerated the procedure well and was taken to recovery in stable condition. MMODL / IJN: [id number] / MTDD
--- NOTE | 2024-01-07 18:21 | FL ---
EXAMINATION TYPE: FL guidance operating room DATE OF EXAM: 12/13/2023 1:11 PM COMPARISON: Pre Operative Images if available both CT/MRI or plain film CLINICAL INDICATION: Female, 53 years old with history of LITHOTRIPSY IN OR; TECHNIQUE: FL guidance operating room, multiple fluoroscopic images provided for procedure. Total fluoroscopy time: 8 seconds Total submitted images to PACS: 6 DAP: 0.9080 mGym2 Gycm2 uGym2 cGycm2 or equivalent. FINDINGS: Fluoroscopic images during lithotripsy demonstrates renal calculus, No immediate complication identif ied. IMPRESSION: 1. No evidence for intraoperative complication. 2. Please see the operative/procedural note for further details. [facility], , 01/07/2024 6:18 PM
== END 2023-11-19 17:27 ==
LOC: OR 09:45
PROVIDERS: ATTEND Urology
DX: N20.1 Calculus of ureter (principal); E78.5 Hyperlipidemia, unspecified; I10 Essential (primary) hypertension; K21.9 Gastro-esophageal reflux disease without esophagitis; M19.90 Unspecified osteoarthritis, unspecified site; Z80.0 Family history of malignant neoplasm of digestive organs; Z86.73 Personal history of transient ischemic attack (TIA), and cerebral infarction without residual deficits; Z87.891 Personal history of nicotine dependence; Z88.0 Allergy status to penicillin; Z94.81 Bone marrow transplant status; Z90.710 Acquired absence of both cervix and uterus; Z82.3 Family history of stroke; Z79.899 Other long term (current) drug therapy; Z79.811 Long term (current) use of aromatase inhibitors; Z79.1 Long term (current) use of non-steroidal anti-inflammatories (NSAID)
CPT/HCPCS: 82365